=== PATIENT | male | born 1935 | race Caucasian/White ===

== ENCOUNTER → 2016-06-14 | Outpatient (CLI) | payer MEDICARE ==
[2016-06-14 15:27] LABS: Basophils % (A) 0 %; CH 29.4; CHCM 31.5; Eosinophils # (A) 0.3 k/uL (0-0.7); Eosinophils % (A) 3 %; HDW 2.43; HGB 12.8 gm/dL (13.0-17.5); Luc # (Auto) 0.23; Luc % (Auto) 2; Lymphocytes # (A) 0.7 k/uL (1.0-4.8); Lymphocytes % (A) 7 %; MCH 29.3 pg (25.0-35.0); MCHC 31.2 g/dL (31.0-37.0); MCV 93.7 fL (80.0-100.0); Mean Platelet Volume 6.7; Monocytes # (A) 0.7 k/uL (0-1.0); Monocytes % (A) 7 %; Neutrophils % (A) 80 %; RBC 4.38 m/uL (4.30-5.90); RDW 15.1 % (11.5-15.5); WBC (Perox) 10.31
[2016-06-14 15:44] LABS: ALT 27 U/L (21-72); AST 23 U/L (17-59); Alkaline Phosphatase 99 U/L (38-126); Anion Gap 14 mmol/L; Blood Urea Nitrogen 48 mg/dL (9-20); Carbon Dioxide 27 mmol/L (22-30); Chloride 99 mmol/L (98-107); Glucose 99 mg/dL (74-99); Non-African American GFR(MDRD) 53 (>60 ml/min/1.73 sqM); Potassium 4.7 mmol/L (3.5-5.1); Sodium 140 mmol/L (137-145); Total Bilirubin 0.6 mg/dL (0.2-1.3); Total Protein 7.8 g/dL (6.3-8.2)
[2016-06-14 15:51] LABS: Prealbumin 16 mg/dL (18-36)
[2016-06-14 17:09] LABS: Hemoglobin A1C 6.5 % (4.2-6.1)
== END | disposition home or self-care (01) ==
LOC: LABWHC1 14:59
PROVIDERS: ATTEND Surgery Vascular Surgery
DX: E11.9 Type 2 diabetes mellitus without complications (principal); E46 Unspecified protein-calorie malnutrition
CPT/HCPCS: 36415; 80053; 83036; 84134; 85025

== ENCOUNTER → 2016-09-14 | Outpatient (CLI) | payer MEDICARE ==
[2016-09-14 11:20] LABS: CH 30.1; CHCM 31.6; HCT 38.1 % (39.0-53.0); HDW 2.54; HGB 12.1 gm/dL (13.0-17.5); MCH 30.3 pg (25.0-35.0); MCHC 31.7 g/dL (31.0-37.0); MCV 95.6 fL (80.0-100.0); Mean Platelet Volume 6.7; RBC 3.98 m/uL (4.30-5.90); RDW 14.9 % (11.5-15.5); WBC 10.8 k/uL (3.8-10.6)
[2016-09-14 11:34] LABS: Calcium 8.8 mg/dL (8.4-10.2); Magnesium 2.2 mg/dL (1.6-2.3); Phosphorous 4.1 mg/dL (2.5-4.5); Potassium 5.3 mmol/L (3.5-5.1); Uric Acid 6.9 mg/dL (3.5-8.5)
[2016-09-14 11:42] LABS: % Iron Saturation 14.8 % (20-50)
[2016-09-14 11:44] LABS: Appearance,Urine Clear (Clear); Bilirubin,Urine Negative (Negative); Glucose,Urine (UA) Negative (Negative); Ketones,Urine Negative (Negative); Leukocyte Esterase,Urine Negative (Negative); Nitrite,Urine Negative (Negative); PH, Urine 6.5 (5.0-8.0); Protein,Urine Negative (Negative); Specific Gravity,Urine 1.009 (1.001-1.035); UA Billing (MACRO vs. MICRO) CHEM; Urobilinogen,Urine <2.0 mg/dL (<2.0)
== END | disposition home or self-care (01) ==
LOC: LABWHC1 10:42
PROVIDERS: ATTEND Nurse Practitioner Family
DX: N17.9 Acute kidney failure, unspecified (principal); D64.9 Anemia, unspecified; D50.9 Iron deficiency anemia, unspecified; N39.0 Urinary tract infection, site not specified; E21.3 Hyperparathyroidism, unspecified; E55.9 Vitamin D deficiency, unspecified; M10.9 Gout, unspecified
CPT/HCPCS: 36415; 80048; 81003; 82306; 82728; 83540; 83550; 83735; 83970; 84100; 84550; 85027

== ENCOUNTER 2017-02-09 11:57 | Inpatient (IN) | payer MEDICARE ==
--- NOTE | 2017-02-09 13:17 | ED ---
Extremity Problem HPI - General Source: patient, RN notes reviewed Mode of arrival: ambulatory Limitations: no limitations <Mychal Rivers - Last Filed: 02/09/17 14:51> <Pablito Dunn - Last Filed: 02/09/17 15:03> - General Chief complaint: Extremity Problem,Nontraumatic Stated complaint: infection both ankles Time Seen by Provider: 02/09/17 12:34 - History of Present Illness Initial comments: This an 82-year-old male presents emergency Department chief complaint of bilateral lower extremity wounds. Patient states his chronic wounds which he is normally seen at the wound center. Patient states he was seen Tuesday and today. Patient was sent over here for the wounds secondary to increase swelling and redness. Patient states that they're increased drainage also. He states he's had his wounds for several years. Patient states he is diabetic his last blood glucose check was 160. Patient has fever, chills. Patient states he is not on any current antibiotics. (Mychal Rivers) - Related Data Home Medications Medication Instructions Recorded Confirmed Spironolactone [Aldactone] 25 mg PO DAILY 04/24/14 02/09/17 Furosemide [Lasix] 20 mg PO BID@0800,1500 08/29/15 02/09/17 Warfarin Sodium [Coumadin] 4 mg PO MO 09/15/15 02/09/17 sitaGLIPtin [Januvia] 100 mg PO DAILY 09/15/15 02/09/17 Metoprolol Tartrate [Lopressor] 12.5 mg PO Q48H 02/09/17 02/09/17 Multivitamins, Thera [Multivitamin 1 tab PO DAILY 02/09/17 02/09/17 (formulary)] Polyethylene Glycol 3350 [Miralax] 17 gm PO DAILY PRN 02/09/17 02/09/17 Verapamil [Isoptin] 20 mg PO Q48H 02/09/17 02/09/17 Warfarin Sodium [Coumadin] 6 mg PO SUTUWETHFRSA 02/09/17 02/09/17 Allergies Allergy/AdvReac Type Severity Reaction Status Date / Time Vpzktng-Kkt-Rgo Reductase Allergy Rash/Hives Verified 02/09/17 13:13 Inhibitor Review of Systems ROS Other: All systems not noted in ROS Statement are negative. <Mychal Rivers - Last Filed: 02/09/17 14:51> ROS Other: All systems not noted in ROS Statement are negative. <Pablito Dunn - Last Filed: 02/09/17 15:03> ROS Statement: Those systems with pertinent positive or pertinent negative responses have been documented in the HPI. Past Medical History Past Medical History: Atrial Fibrillation, Coronary Artery Disease (CAD), Heart Failure, COPD, Hearing Disorder / Deafness, Hyperlipidemia, Hypertension, Skin Disorder Additional Past Medical History / Comment(s): Severe peripheral vascular disease , chronic venous stasis ulcer and lower extremities with infection secondary to Pseudomonas and MSSA and strep group B, chronic anasarca, chronic anemia, chronic atrial fibrillation, chronic hypotension, hyperlipidemia History of Any Multi-Drug Resistant Organisms: None Reported Past Surgical History: Heart Catheterization, Hernia Repair Additional Past Surgical History / Comment(s): COLONOSCOPY 3, right inguinal hernia repair, bilateral cataract removal and lens implants, NASAL FRACTURE Past Anesthesia/Blood Transfusion Reactions: No Reported Reaction Past Psychological History: No Psychological Hx Reported Smoking Status: Former smoker Past Alcohol Use History: None Reported Past Drug Use History: None Reported - Past Family History Mother Family Medical History: Diabetes Mellitus Father Family Medical History: Prostate Disorder Additional Family Medical History / Comment(s): bowel disorder <Mychal Rivers - Last Filed: 02/09/17 14:51> General Exam Limitations: no limitations General appearance: alert, in no apparent distress Head exam: Present: atraumatic, normocephalic, normal inspection Respiratory exam: Present: normal lung sounds bilaterally. Absent: respiratory distress, wheezes, rales, rhonchi, stridor Cardiovascular Exam: Present: regular rate, normal rhythm, normal heart sounds. Absent: systolic murmur, diastolic murmur, rubs, gallop, clicks Extremities exam: Present: other (Bilateral lower extremities there are open sores on the anterior surface of the distal tibia and ankle region with moderate surrounding erythema and induration, pedal pulses are equal bilaterally there is scattered few open sores noted on the proximal tib-fib region there is serosanguineous until he blood-tinged drainage noted there is a fall order to the wounds) Skin exam: Present: warm, dry <Mychal Rivers - Last Filed: 02/09/17 14:51> Vital Signs 02/09/17 02/09/17 12:08 13:42 Temperature 98.8 F Pulse Rate 101 H 85 Respiratory 16 18 Rate Blood Pressure 110/79 115/61 O2 Sat by Pulse 95 96 Oximetry Medical Decision Making - Lab Data Result diagrams: 02/09/17 13:40 <Mychal Rivers - Last Filed: 02/09/17 14:51> - Lab Data Result diagrams: 02/09/17 13:40 <Pablito Dunn - Last Filed: 02/09/17 15:03> - Medical Decision Making 80-year-old male presented for lower leg wounds. Patient does have a slight white count, and sores. Patient will be admitted for IV antibiotics. Patient does meet sepsis criteria at 14:53 Patient was started on Unasyn and vancomycin. (Mychal Rivers) Patient was reevaluated by myself, Dr. Dunn. Patient has bilateral lower leg cellulitis with erythema and clear discharge. Patient has purplish discoloration of majority of his toes Refill around 3 seconds. Diminished pedal pulses. Patient states he has a known history of vascular problems. Patient has had toe amputation. Patient states the color for his feet are actually good at this time. Case was discussed in detail with Dr. Pleitez, who will admit for Dr. Bartlett. Dr. Soni Who Has Previously Seen This Patient. Patient Does Meet Sepsis Criteria and Will Be Started on IV Antibiotics. (Pablito Dunn) - Lab Data Lab Results 02/09/17 02/09/17 Range/Units 13:40 13:40 WBC 15.2 H (3.8-10.6) k/uL RBC 3.78 L (4.30-5.90) m/uL Hgb 11.7 L (13.0-17.5) gm/dL Hct 37.3 L (39.0-53.0) % MCV 98.6 (80.0-100.0) fL MCH 31.0 (25.0-35.0) pg MCHC 31.4 (31.0-37.0) g/dL RDW 16.2 H (11.5-15.5) % Plt Count 293 (150-450) k/uL Neutrophils % 87 % Lymphocytes % 2 % Monocytes % 6 % Eosinophils % 3 % Basophils % 0 % Neutrophils # 13.3 H (1.3-7.7) k/uL Lymphocytes # 0.3 L (1.0-4.8) k/uL Monocytes # 1.0 (0-1.0) k/uL Eosinophils # 0.4 (0-0.7) k/uL Basophils # 0.0 (0-0.2) k/uL Anisocytosis Slight Macrocytosis Slight Plasma Lactic Acid Deandre 1.4 (0.7-2.0) mmol/L Disposition <Mychal Rivers - Last Filed: 02/09/17 14:51> <Pablito Dunn - Last Filed: 02/09/17 15:03> Clinical Impression: Venous stasis ulcer of left lower extremity, Venous stasis ulcer of right lower extremity, Sepsis Disposition: ADMITTED IP TO THIS HOSP Condition: Fair Referrals: Sana Bartlett MD [Primary Care Provider] - 1-2 days
[2017-02-09 13:58] LABS: Anisocytosis Slight; Basophils % (A) 0 %; CH 31.8; CHCM 32.5; Eosinophils # (A) 0.4 k/uL (0-0.7); Eosinophils % (A) 3 %; HCT 37.3 % (39.0-53.0); HDW 2.54; HGB 11.7 gm/dL (13.0-17.5); Luc % (Auto) 1; Lymphocytes # (A) 0.3 k/uL (1.0-4.8); Lymphocytes % (A) 2 %; MCHC 31.4 g/dL (31.0-37.0); MCV 98.6 fL (80.0-100.0); Macrocytosis Slight; Mean Platelet Volume 7.4; Monocytes % (A) 6 %; Neutrophils # (A) 13.3 k/uL (1.3-7.7); Neutrophils % (A) 87 %; RBC 3.78 m/uL (4.30-5.90); RDW 16.2 % (11.5-15.5); WBC 15.2 k/uL (3.8-10.6); WBC (Perox) 15.27
--- NOTE | 2017-02-09 14:11 | XR ---
EXAMINATION TYPE: XR tibia fibula bilateral DATE OF EXAM: 02/09/2017 COMPARISON: NONE HISTORY: Pain, infection TECHNIQUE: 2 views right tibia and fibula FINDINGS: No acute osseous abnormality is evident. Ankle mortise appears intact. Knee joint space kash ears preserved. No acute fractures identified. Artifact from the patient's bandages on the soft tissu es. IMPRESSION: 1. No acute osseous abnormality to suggest underlying osteomyelitis. 2. Soft tissues as visualized appear within Normal limits.
[2017-02-09] MEDS ORDERED: AMPICILLIN-SULBACTAM 3 GM in SODIUM CHLORIDE 0.9% 100 ML IVPB STA (14:50)
[2017-02-09] MEDS ORDERED: IV VANCOMYCIN PER PHARMACY 1 EACH MISC MISCELLANE PRN (14:51)
[2017-02-09] MEDS ORDERED: NALOXONE 0.4 MG/ML 1 ML VIAL IV PRN (14:53)
[2017-02-09] MEDS ORDERED: ACETAMINOPHEN TAB 325 MG TAB PO PRN (14:53)
[2017-02-09 15:02] LABS: ALT 22 U/L (21-72); AST 31 U/L (17-59); Alkaline Phosphatase 84 U/L (38-126); Anion Gap 10 mmol/L; Blood Urea Nitrogen 47 mg/dL (9-20); Calcium 8.9 mg/dL (8.4-10.2); Carbon Dioxide 25 mmol/L (22-30); Chloride 101 mmol/L (98-107); Glucose 100 mg/dL (74-99); Non-African American GFR(MDRD) 54 (>60 ml/min/1.73 sqM); Sodium 136 mmol/L (137-145); Total Protein 7.6 g/dL (6.3-8.2)
[2017-02-09 15:07] LABS: Potassium 5.8 mmol/L (3.5-5.1)
[2017-02-09] MEDS ORDERED: VANCOMYCIN 2,000 MG in SODIUM CHLORIDE 0.9% 500 ML IVPB ONE (16:00)
[2017-02-09 16:31] LABS: Partial Thromboplastin Time 30.2 sec (22.0-30.0); Prothrombin Time 19.7 sec (9.0-12.0)
[2017-02-09] MEDS: FUROSEMIDE 20 MG TAB PO SCH (16:31)
[2017-02-09] MEDS ORDERED: CALCIUM GLUCONATE 1,000 MG in SODIUM CHLORIDE 0.9% 100 ML IVPB ONE (17:18)
[2017-02-09] MEDS ORDERED: INSULIN REGULAR 100 UNIT/ML VIAL IV ONE (17:18)
[2017-02-09] MEDS ORDERED: DEXTROSE 50%-WATER 50 ML SYRINGE IVP STA (17:19)
[2017-02-09] MEDS ORDERED: SODIUM POLYSTYRENE SULFONATE 15 GM/60 ML BOTTLE PO STA (17:19)
[2017-02-09] MEDS ORDERED: IPRATROPIUM-ALBUTEROL 3 ML NEB INHALATION PRN (17:20)
[2017-02-09] MEDS: WARFARIN 3 MG TAB PO SCH (17:22)
[2017-02-09] MEDS ORDERED: POLYETHYLENE GLYCOL 3350 17 GM POWD.PACK PO PRN (17:23)
[2017-02-09] MEDS: PANTOPRAZOLE 40 MG/10 ML VIAL IVP SCH (18:01)
[2017-02-09] MEDS: IPRATROPIUM-ALBUTEROL 3 ML NEB INHALATION SCH (20:32)
[2017-02-09] MEDS: ceFAZolin 2 GM in SODIUM CHLORIDE 0.9% 100 ML IVPB SCH (23:15)
--- NOTE | 2017-02-10 06:26 | CONS ---
CONSULTATION DATE OF SERVICE: 02/09/2017 REASON FOR CONSULTATION: Bilateral lower extremity wound and cellulitis. HISTORY OF PRESENT ILLNESS: The patient is an 82-year-old male with a past medical history significant for bilateral lower extremity venous stasis ulcer with secondary cellulitis for which the patient is currently under care of Dr. Soni at the [facility]. The patient said that his home care nurse came to change his dressing and thought he was having significant swelling and redness with some drainage and advised him to go to the hospital. The patient denies any high-grade fever, however, has some occasional chills. He has been complaining of pain in the leg wound area, which is mostly burning in nature about 5 to 6 out of 10 with no radiation. The patient did have some clear drainage from it. The patient denies having any chest pain or shortness of breath or cough. No abdominal pain or any diarrhea. The patient was evaluated by the ER physician. The patient did have x-rays of the tibia and fibula, which shows soft tissue as visualized appears within normal limits and no bony changes. The patient did receive a dose of Unasyn and subsequently had been started on vancomycin. ID was consulted for further recommendation regarding antibiotic therapy. REVIEW OF SYSTEMS: CONSTITUTIONAL: Positive for weakness. Denies any high-grade fever. EYES: No complaint. ENT: No complaint. RESPIRATORY: Occasional cough. CARDIOVASCULAR: No complaint. GENITOURINARY: No complaint. GASTROINTESTINAL: No complaint. MUSCULOSKELETAL: No complaint. INTEGUMENTARY: No complaint. PSYCHOLOGICAL: No complaint. NEUROLOGIC: No complaint. PAST MEDICAL HISTORY: Significant for coronary artery disease, heart failure, COPD, hypertension, hyperlipidemia, atrial fibrillation, peripheral vascular disease and chronic venous stasis ulcers to the leg. PAST SURGICAL HISTORY: Colonoscopy, right inguinal hernia repair, bilateral cataract surgery, heart catheterization and hernia repair. SOCIAL HISTORY: Remote history of smoking. No drinking or any drug use. FAMILY HISTORY: Mother had history of diabetes. Father had history of prostate disorder. ALLERGIES: Allergies to STATINS. MEDICATIONS: Medications include the patient is currently on Tylenol, DuoNeb, Lasix, Tradjenta, Lopressor, Theragran, Narcan, Protonix, MiraLAX, Aldactone, verapamil, Coumadin and vancomycin. PHYSICAL EXAMINATION: On examination, blood pressure is 100/73 with a pulse of 100, temperature 97.7. He is 98% on room air. General description is an elderly male lying in bed in no distress. No tachypnea or accessory muscle for respiration use. HEENT examination shows slight pallor. No scleral icterus. Oral mucous membranes dry. NECK: Trachea central. No thyromegaly. LUNGS: Unlabored breathing. Clear to auscultation anteriorly. No wheeze or crackle. HEART: S1, S2. Regular rate and rhythm. ABDOMEN: Soft, no tenderness. No guarding or rigidity. EXTREMITIES: Bilateral legs which did have venous stasis ulcer with minimal cellulitis. No slough tissue. Some clear drainage. No foul smelling. NEUROLOGICAL: The patient is awake, alert, oriented x3. Mood and affect normal. LABS: Hemoglobin is 11.7, white count 15.2 with a BUN of 47, creatinine 1.28. Potassium was slightly elevated 5.8. Liver enzymes are normal. DIAGNOSTIC IMPRESSION AND PLAN: Patient with bilateral lower extremity venous stasis ulcer with secondary cellulitis in a patient who did have diffuse swelling and redness with underlying gram-positive skin augustina, especially in streptococcal disease, clinically doubt a methicillin- resistant Staphylococcus aureus infection. PLAN: 1. We will discontinue vancomycin. 2. We will start the patient on cefazolin 2 grams q.8 hours. 3. Local wound care with Aquacel Silver dressing followed by an Bill wrap. 4. We will follow up on his clinical condition and culture to further adjust medication if needed. Thank you for this consultation. Will follow this patient along with you. MMODL / IJN: [id number] /
[2017-02-10 07:32] LABS: Basophils # (A) 0.1 k/uL (0-0.2); Basophils % (A) 0 %; CH 29.6; CHCM 30.8; Eosinophils # (A) 0.5 k/uL (0-0.7); Eosinophils % (A) 4 %; HCT 35.8 % (39.0-53.0); HDW 2.59; Hypochromasia Slight; Luc # (Auto) 0.18; Luc % (Auto) 2; Lymphocytes # (A) 0.3 k/uL (1.0-4.8); Lymphocytes % (A) 3 %; MCH 29.5 pg (25.0-35.0); MCHC 30.6 g/dL (31.0-37.0); MCV 96.4 fL (80.0-100.0); Mean Platelet Volume 6.5; Monocytes # (A) 0.9 k/uL (0-1.0); Monocytes % (A) 7 %; Neutrophils % (A) 84 %; RBC 3.72 m/uL (4.30-5.90); RDW 14.5 % (11.5-15.5); WBC 11.8 k/uL (3.8-10.6); WBC (Perox) 12.06
[2017-02-10 07:40] LABS: INR 2.1 (<1.2); Prothrombin Time 20.6 sec (9.0-12.0)
[2017-02-10 07:46] LABS: Glucose,Whole Blood 120 mg/dL (75-99)
[2017-02-10 07:49] LABS: Anion Gap 9 mmol/L; Blood Urea Nitrogen 41 mg/dL (9-20); Calcium 8.4 mg/dL (8.4-10.2); Carbon Dioxide 24 mmol/L (22-30); Chloride 103 mmol/L (98-107); Glucose 116 mg/dL (74-99); Non-African American GFR(MDRD) 53 (>60 ml/min/1.73 sqM); Potassium 5.2 mmol/L (3.5-5.1); Sodium 136 mmol/L (137-145)
[2017-02-10] MEDS: IPRATROPIUM-ALBUTEROL 3 ML NEB INHALATION SCH ×4 (08:11→19:49)
[2017-02-10] MEDS: FUROSEMIDE 20 MG TAB PO SCH ×2 (08:18→16:00)
[2017-02-10] MEDS: LINAGLIPTIN 5 MG TABLET PO SCH (08:18)
[2017-02-10] MEDS: ceFAZolin 2 GM in SODIUM CHLORIDE 0.9% 100 ML IVPB SCH ×2 (08:18→16:02)
[2017-02-10] MEDS: PANTOPRAZOLE 40 MG/10 ML VIAL IVP SCH (08:18)
[2017-02-10] MEDS ORDERED: SPIRONOLACTONE 25 MG TAB PO SCH (09:00)
[2017-02-10] MEDS ORDERED: VERAPAMIL 40 MG TAB PO SCH (09:00)
[2017-02-10 12:19] LABS: Glucose,Whole Blood 162 mg/dL (75-99)
[2017-02-10] MEDS: MULTIVITAMINS, THERA 1 EACH TAB PO SCH (12:57)
--- NOTE | 2017-02-10 15:39 | P.HPIM ---
History of Present Illness H&P Date: 02/10/17 Chief Complaint: leg infection patient is a 82-year-old malethe past medical history of hypertension, diabetes type 2, atrial fibrillation on anticoagulation and chronic venous stasis and ulcers and peripheral vascular disease presents emergency Department chief complaint of bilateral lower extremity wounds. Patient states his chronic wounds which he is normally seen at the wound center. Patient states he was seen Tuesday and today. Patient was sent over here for the wounds secondary to increase swelling and redness. Patient denied any fever, chills. denied any injury or recent illnesses. No complaints of chest pain or short of breath. patient follows with Dr. Soni in the wound care clinic. Review of Systems Constitutional: Patient denies any fever or chills . No generalized weakness or weight loss. Abdomen: Patient denied nausea vomiting and diarrhea and abdominal pain. Cardiovascular: Patient denies any chest pain or short of breath no palpitations. Respiratory: patient denied any cough is from production. No shortness of breath Neurologic: Patient denied any numbness or tingling headache. Musculoskeletal: Patient denies any complaints of joint swelling or deformity. Skin: patient does have bilateral lower extremity venous ulcers and also complaints of pain and redness. Psychiatric: Negative Endocrine: No heat or cold intolerance. No recent weight gain. Genitourinary: No dysuria or hematuria. All other 14 point ROS negative except the above Past Medical History Past Medical History: Atrial Fibrillation, Coronary Artery Disease (CAD), Heart Failure, COPD, Hearing Disorder / Deafness, Hyperlipidemia, Hypertension, Skin Disorder Additional Past Medical History / Comment(s): Severe peripheral vascular disease , chronic venous stasis ulcer and lower extremities with infection secondary to Pseudomonas and MSSA and strep group B, chronic anasarca, chronic anemia, chronic atrial fibrillation, chronic hypotension, hyperlipidemia History of Any Multi-Drug Resistant Organisms: None Reported Past Surgical History: Heart Catheterization, Hernia Repair Additional Past Surgical History / Comment(s): COLONOSCOPY 3, right inguinal hernia repair, bilateral cataract removal and lens implants, NASAL FRACTURE Past Anesthesia/Blood Transfusion Reactions: No Reported Reaction Past Psychological History: No Psychological Hx Reported Additional Psychological History / Comment(s): He is and has one stepdaughter 4 grandchildren and multiple great-grandchildrenHe is retired from [employer] or he worked in the shipping department, 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 Smoking Status: Former smoker Past Alcohol Use History: None Reported Additional Past Alcohol Use History / Comment(s): he was a smoker and quit 40 years ago. He denies any medical marijuana, marijuana, street drug or alcohol use. He is currently living with great grandson and has 2 cats in the home. He denies any recent travel. Past Drug Use History: None Reported - Past Family History Mother Family Medical History: Diabetes Mellitus Father Family Medical History: Prostate Disorder Additional Family Medical History / Comment(s): bowel disorder Medications and Allergies Home Medications Medication Instructions Recorded Confirmed Type Spironolactone [Aldactone] 25 mg PO DAILY 04/24/14 02/09/17 History Furosemide [Lasix] 20 mg PO BID@0800,1500 08/29/15 02/09/17 History Warfarin Sodium [Coumadin] 4 mg PO MO 09/15/15 02/09/17 History sitaGLIPtin [Januvia] 100 mg PO DAILY 09/15/15 02/09/17 History Metoprolol Tartrate [Lopressor] 12.5 mg PO Q48H 02/09/17 02/09/17 History Multivitamins, Thera [Multivitamin 1 tab PO DAILY 02/09/17 02/09/17 History (formulary)] Polyethylene Glycol 3350 [Miralax] 17 gm PO DAILY PRN 02/09/17 02/09/17 History Verapamil [Isoptin] 20 mg PO Q48H 02/09/17 02/09/17 History Warfarin Sodium [Coumadin] 6 mg PO SUTUWETHFRSA 02/09/17 02/09/17 History Allergies Allergy/AdvReac Type Severity Reaction Status Date / Time Bzeispq-Qal-Kvu Reductase Allergy Rash/Hives Verified 02/09/17 13:13 Inhibitor Physical Exam Vitals: Vital Signs Temp Pulse Pulse Resp BP BP Pulse Ox 02/10/17 11:09 92 02/10/17 10:58 88 02/10/17 08:00 110 H 02/10/17 07:00 97.3 F L 110 H 20 107/74 97 02/09/17 23:00 97.5 F L 106 H 20 112/79 95 02/09/17 20:45 92 02/09/17 20:32 90 02/09/17 16:48 16 02/09/17 16:41 97.7 F 100 16 100/73 98 02/09/17 15:36 98.1 F 66 16 142/63 98 02/09/17 13:42 85 18 115/61 96 Intake and Output 02/09/17 02/10/17 02/10/17 22:59 06:59 14:59 Intake Total 592 Balance 592 Intake: Intake, IV Titration 592 Amount Ampicillin-Sulbactam 3 gm 100 In Sodium Chloride 0.9% 100 ml @ 100 mls/hr IVPB ONCE STA Rx#:[id number] Calcium Gluconate 1,000 100 mg In Sodium Chloride 0.9 % 100 ml @ 100 mls/hr IVPB ONCE ONE Rx#: [id number] Vancomycin 1,500 mg In 125 Sodium Chloride 0.9% 250 ml @ 125 mls/hr IVPB Q24H [facility] Rx#:[id number] Vancomycin 2,000 mg In 167 Sodium Chloride 0.9% 500 ml @ 167 mls/hr IVPB ONCE ONE Rx#:[id number] ceFAZolin 2 gm In Sodium 100 Chloride 0.9% 100 ml @ 100 mls/hr IVPB Q8HR [facility] Rx#:[id number] Other: Voiding Method Toilet # Voids 2 3 1 # Bowel Movements 1 PHYSICAL EXAMINATION: Patient is lying in the bed comfortably, no acute distress, awake alert and oriented.. HEENT: Normocephalic. Neck is supple. Pupils reactive. Nostrils clear. Oral cavity is moist. Ears reveal no drainage. Neck reveals no JVD, carotid bruits, or thyromegaly. CHEST EXAMINATION: Trachea is central. Symmetrical expansion. Lung baxter clear to auscultation and percussion. CARDIAC: Normal S1, S2 with no gallops. No murmurs ABDOMEN: Soft. Bowel sounds normal. No organomegaly. No abdominal bruits. Extremities: bilateral lower extremity venous ulcers and surrounding cellulitis. Mild tenderness and warmth Neurologically awake, alert, oriented x3 with well-coordinated movements. No focal deficits noted Skin: No rash or skin lesions. Psychiatric: Operative. Nonsuicidal Musculoskeletal: No joint swelling or deformity. Normal range of motion. Results CBC & Chem 7: 02/10/17 07:07 02/10/17 07:07 Labs: Abnormal Lab Results - Last 24 Hours (Table) 02/09/17 02/09/17 02/09/17 Range/Units 13:40 14:32 16:05 WBC 15.2 H (3.8-10.6) k/uL RBC 3.78 L (4.30-5.90) m/uL Hgb 11.7 L (13.0-17.5) gm/dL Hct 37.3 L (39.0-53.0) % MCHC (31.0-37.0) g/dL RDW 16.2 H (11.5-15.5) % Neutrophils # 13.3 H (1.3-7.7) k/uL Lymphocytes # 0.3 L (1.0-4.8) k/uL PT 19.7 H (9.0-12.0) sec INR 2.0 H (<1.2) APTT 30.2 H (22.0-30.0) sec Sodium 136 L (137-145) mmol/L Potassium 5.8 H (3.5-5.1) mmol/L BUN 47 H (9-20) mg/dL Creatinine 1.28 H (0.66-1.25) mg/dL Glucose 100 H (74-99) mg/dL POC Glucose (mg/dL) (75-99) mg/dL 02/10/17 02/10/17 02/10/17 Range/Units 07:07 07:07 07:07 WBC 11.8 H (3.8-10.6) k/uL RBC 3.72 L (4.30-5.90) m/uL Hgb 11.0 L (13.0-17.5) gm/dL Hct 35.8 L (39.0-53.0) % MCHC 30.6 L (31.0-37.0) g/dL RDW (11.5-15.5) % Neutrophils # 10.0 H (1.3-7.7) k/uL Lymphocytes # 0.3 L (1.0-4.8) k/uL PT 20.6 H (9.0-12.0) sec INR 2.1 H (<1.2) APTT (22.0-30.0) sec Sodium 136 L (137-145) mmol/L Potassium 5.2 H (3.5-5.1) mmol/L BUN 41 H (9-20) mg/dL Creatinine 1.30 H (0.66-1.25) mg/dL Glucose 116 H (74-99) mg/dL POC Glucose (mg/dL) (75-99) mg/dL 02/10/17 02/10/17 Range/Units 07:27 12:16 WBC (3.8-10.6) k/uL RBC (4.30-5.90) m/uL Hgb (13.0-17.5) gm/dL Hct (39.0-53.0) % MCHC (31.0-37.0) g/dL RDW (11.5-15.5) % Neutrophils # (1.3-7.7) k/uL Lymphocytes # (1.0-4.8) k/uL PT (9.0-12.0) sec INR (<1.2) APTT (22.0-30.0) sec Sodium (137-145) mmol/L Potassium (3.5-5.1) mmol/L BUN (9-20) mg/dL Creatinine (0.66-1.25) mg/dL Glucose (74-99) mg/dL POC Glucose (mg/dL) 120 H 162 H (75-99) mg/dL Thrombosis Risk Factor Assmnt - Choose All That Apply Each Factor Represents 1 point: Swollen legs (current) Each Risk Factor Represents 3 Points: Age 75 years or older Thrombosis Risk Factor Assessment Total Risk Factor Score: 4 Thrombosis Risk Factor Assessment Level: Moderate Risk Assessment and Plan Assessment: #1 sepsis secondary to bilateral lower action T venostasis ulcers with surrounding cellulitis. Patient does have mucositis and tachycardia on admission 2 peripheral vascular disease #3 mild hyperkalemia. We will hold spironolactone. #4 acute kidney injury likely prerenal #5 diabetes type #6 hypertension #7 paroxysmal atrial fibrillation on anticoagulation with Coumadin #8hearing disorder plan: Patient will becontinued on cefazolin. Patient was initially given vancomycin in the ER at ID is following. Continue the wound care. And follow-up progression level. Will hold spironolactone and continue the current management. Coumadin monitoring. Further recommendations based on the clinical course Time with Patient: Greater than 30
[2017-02-10] MEDS ORDERED: VANCOMYCIN 1,500 MG in SODIUM CHLORIDE 0.9% 250 ML IVPB SCH (16:00)
[2017-02-10 17:47] LABS: Glucose,Whole Blood 141 mg/dL (75-99)
[2017-02-10] MEDS: WARFARIN 3 MG TAB PO SCH (18:08)
[2017-02-10 20:59] LABS: Glucose,Whole Blood 147 mg/dL (75-99)
[2017-02-10] MEDS: METOPROLOL TARTRATE 12.5 MG TAB PO SCH (21:09)
--- NOTE | 2017-02-10 22:11 | PN ---
PROGRESS NOTE REASON FOR FOLLOWUP: Bilateral lower extremity venostasis ulcers and cellulitis. INTERVAL HISTORY: The patient is afebrile, has been breathing comfortably. Denies any chest pain or shortness of breath or cough. No abdominal pain. The burning pain to the leg area has improved. PHYSICAL EXAMINATION: Blood pressure 107/77 with a pulse of 88, temperature of 98.4. He is 98% on room air. General description is an elderly male up in the chair in no distress. RESPIRATORY SYSTEM: Unlabored breathing. Clear to auscultation anteriorly. HEART: S1, S2. Regular rate and rhythm. ABDOMEN: Soft. No tenderness. Bilateral leg swelling and redness slightly improved. No drainage on the dressings. LABS: Hemoglobin is 11 with a white count of 11.8, BUN of 41, creatinine 1.30. DIAGNOSTIC IMPRESSION AND PLAN: Patient with bilateral lower extremity venostasis ulcers with secondary cellulitis. The patient at this time will continue on cefazolin for another 24-48 hours along with Aquacel Silver and the Bill wrap. Will re-evaluate the patient tomorrow. Continue supportive care. MMODL / IJN: [id number] /
[2017-02-11] MEDS: ceFAZolin 2 GM in SODIUM CHLORIDE 0.9% 100 ML IVPB SCH ×4 (00:04→23:50)
[2017-02-11] MEDS: IPRATROPIUM-ALBUTEROL 3 ML NEB INHALATION SCH ×4 (07:06→20:50)
[2017-02-11 07:23] LABS: Glucose,Whole Blood 108 mg/dL (75-99)
[2017-02-11 08:41] LABS: INR 2.4 (<1.2); Prothrombin Time 23.5 sec (9.0-12.0)
[2017-02-11 08:51] LABS: Basophils % (A) 0 %; CH 29.9; CHCM 31.1; Eosinophils # (A) 0.5 k/uL (0-0.7); Eosinophils % (A) 5 %; HCT 37.3 % (39.0-53.0); HDW 2.72; HGB 11.4 gm/dL (13.0-17.5); Hypochromasia Slight; Luc # (Auto) 0.14; Luc % (Auto) 1; Lymphocytes # (A) 0.4 k/uL (1.0-4.8); Lymphocytes % (A) 4 %; MCH 29.5 pg (25.0-35.0); MCHC 30.5 g/dL (31.0-37.0); MCV 96.8 fL (80.0-100.0); Mean Platelet Volume 6.5; Monocytes # (A) 0.6 k/uL (0-1.0); Monocytes % (A) 6 %; Neutrophils # (A) 8.7 k/uL (1.3-7.7); Neutrophils % (A) 84 %; RBC 3.85 m/uL (4.30-5.90); RDW 14.6 % (11.5-15.5); WBC 10.3 k/uL (3.8-10.6); WBC (Perox) 10.37
[2017-02-11] MEDS: METOPROLOL TARTRATE 12.5 MG TAB PO SCH (08:59)
[2017-02-11] MEDS: PANTOPRAZOLE 40 MG TABLET PO SCH (08:59)
[2017-02-11] MEDS: FUROSEMIDE 20 MG TAB PO SCH ×2 (08:59→15:19)
[2017-02-11] MEDS ORDERED: METOPROLOL TARTRATE 12.5 MG TAB PO SCH (09:00)
[2017-02-11] MEDS: LINAGLIPTIN 5 MG TABLET PO SCH (09:00)
[2017-02-11 09:07] LABS: Anion Gap 10 mmol/L; Blood Urea Nitrogen 34 mg/dL (9-20); Calcium 8.5 mg/dL (8.4-10.2); Carbon Dioxide 26 mmol/L (22-30); Chloride 101 mmol/L (98-107); Glucose 113 mg/dL (74-99); Non-African American GFR(MDRD) >60 (>60 ml/min/1.73 sqM); Potassium 4.4 mmol/L (3.5-5.1); Sodium 137 mmol/L (137-145)
[2017-02-11] MEDS ORDERED: METOPROLOL TARTRATE 12.5 MG TAB PO ONE (10:45)
[2017-02-11 10:57] LABS: Magnesium 1.9 mg/dL (1.6-2.3)
[2017-02-11] MEDS: MULTIVITAMINS, THERA 1 EACH TAB PO SCH (11:04)
[2017-02-11 12:11] LABS: Glucose,Whole Blood 113 mg/dL (75-99)
--- NOTE | 2017-02-11 13:26 | ECHOF ---
Referral Reason:known cardiomyopathy, afib MEASUREMENTS -------- HEIGHT: 182.9 cm WEIGHT: 98.4 kg BP: 104/69 IVSd: 0.7 cm (0.6 - 1.1) LVIDd: 4.1 cm (3.9 - 5.3) LVPWd: 1.0 cm (0.6 - 1.1) IVSs: 1.0 cm LVIDs: 3.5 cm LVPWs: 1.1 cm LAESV Index (A-L): 48.04 ml/m MV EXCURSION: 9.219 mm (> 18.000) MV EF SLOPE: 77 mm/s (70 - 150) EPSS: 1.7 cm MV E Jewel: 1.16 m/s MV DecT: 66 ms MV A Jewel: 0.54 m/s MV E/A Ratio: 2.16 FINDINGS -------- Atrial fibrillation. This was a technically difficult study with suboptimal views. The left ventricular size is normal. Left ventricular wall thickness is normal. Overall left ventricular systolic function is mild-moderately impaired with, an EF between 40 - 45 %. The right ventricle is normal in size and function. LA is severely dilated >40 ml/m2 The right atrium is normal in size. 1.5mg of Definity was utilized for enhancement of images The aortic valve was not well visualized. The mitral valve was not well visualized. Mild mitral regurgitation is present. Kefv-zl-czsorhyj tricuspid regurgitation present. The right ventricular systolic pressure, as measured by Doppler, is {RVSP}. The pulmonic valve was not well visualized. The aortic root size is normal. Normal inferior vena cava with normal inspiratory collapse consistent with estimated right atrial pressure of 5 mmHg. The pericardium is normal. CONCLUSIONS -------- 1. Atrial fibrillation. 2. The aortic valve was not well visualized. 3. The mitral valve was not well visualized. 4. Mild mitral regurgitation is present. 5. Fohc-ei-djynwaba tricuspid regurgitation present. 6. The right ventricular systolic pressure, as measured by Doppler, is {RVSP}. 7. The pulmonic valve was not well visualized. 8. The aortic root size is normal. 9. Normal inferior vena cava with normal inspiratory collapse consistent with estimated right atrial pressure of 5 mmHg. 10. The pericardium is normal. 11. This was a technically difficult study with suboptimal views. 12. The left ventricular size is normal. 13. Left ventricular wall thickness is normal. 14. Overall left ventricular systolic function is mild-moderately impaired with, an EF between 40 - 45 %. 15. The right ventricle is normal in size and function. 16. LA is severely dilated >40 ml/m2 17. The right atrium is normal in size. 18. 1.5mg of Definity was utilized for enhancement of images PARTS DEPARTMENT SUPERVISOR: Angelina Yun RDCS
--- NOTE | 2017-02-11 15:01 | P.CRDCN ---
History of Present Illness Consult date: 02/11/17 History of present illness: This is a very pleasant 82-year-old male with past medical history significant for chronic persistent atrial fibrillation on prison anitcoagulation, cardiomyopathy, hypertension, diabetes mellitus, COPD, PVD with chronic venous stasis ulcers and decreased systolic dysfunction with EF 40%. He follows regularly with Dr. Jimenez as an outpatient. We have been asked to see the patient in consultation for atrial fibrillation with rapid ventricular response. He is currently being treated for b/l lower extremity venous stasis ulcers. EKG reveals atrial fibrillation heart rate 120's. On telemetry tracings his heart rate goes between 110-129. However his verapamil was never started upon admission. Upon exam today he is seen sitting up in bed in mild respiratory distress. He is unable to complete a sentence without stopping for air. He denies any feelings of chest pain, palpitations, dizziness, diaphoresis. He even denies shortness of breath and states he feels his breathing is baseline. He is getting albuterol nebulized ATC and is also being treated for sepsis secondary to cellulitis. Hgb 11.4, INR 2.4, potassium 4.4, BUN 34, Cr 1.07, magnesium 1.9, TSH 7.8 with free T4 1.42. Blood pressure 104/69. Echo reveals mild-moderate LV systolic dysfunction with EF 40-45%, mild- moderate TR and severely dilated LA. Review of Systems CONSTITUTIONAL: Denies fever. Denies chills. EYES: Denies blurred vision. Denies vision changes. Denies eye pain. EARS, NOSE, MOUTH & THROAT: Denies headache. Denies sore throat. Denies ear pain. CARDIOVASCULAR: Denies chest pain. Denies shortness of breath. Denies orthopnea. Denies PND. Denies palpitations. RESPIRATORY: Denies cough. GASTROINTESTINAL: Denies abdominal pain. Denies diarrhea. Denies constipation. Denies nausea. Denies vomitng. MUSCULOSKELETAL: Denies myalgias. INTEGUMENTARY: Complains of ongoing lower extremity wounds. NEUROLOGIC: Denies numbness. Denies tingling. Denies weakness. PSYCHIATRIC: Denies anxiety. Denies depression. ENDOCRINE: Denies fatigue. Denies weight change. Denies polydipsia. Denies polyurina. GENITOURINARY: Denies burning, hematuria or urgency with micturation. HEMATOLOGIC: Denies history of anemia. Denies bleeding. Past Medical History Past Medical History: Atrial Fibrillation, Coronary Artery Disease (CAD), Heart Failure, COPD, Hearing Disorder / Deafness, Hyperlipidemia, Hypertension, Skin Disorder Additional Past Medical History / Comment(s): Severe peripheral vascular disease , chronic venous stasis ulcer and lower extremities with infection secondary to Pseudomonas and MSSA and strep group B, chronic anasarca, chronic anemia, chronic atrial fibrillation, chronic hypotension, hyperlipidemia History of Any Multi-Drug Resistant Organisms: None Reported Past Surgical History: Heart Catheterization, Hernia Repair Additional Past Surgical History / Comment(s): COLONOSCOPY 3, right inguinal hernia repair, bilateral cataract removal and lens implants, NASAL FRACTURE Past Anesthesia/Blood Transfusion Reactions: No Reported Reaction Past Psychological History: No Psychological Hx Reported Additional Psychological History / Comment(s): He is and has one stepdaughter 4 grandchildren and multiple great-grandchildrenHe is retired from [employer] or he worked in the [employer] department, 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 Smoking Status: Former smoker Past Alcohol Use History: None Reported Additional Past Alcohol Use History / Comment(s): he was a smoker and quit 40 years ago. He denies any medical marijuana, marijuana, street drug or alcohol use. He is currently living with great grandson and has 2 cats in the home. He denies any recent travel. Past Drug Use History: None Reported - Past Family History Mother Family Medical History: Diabetes Mellitus Father Family Medical History: Prostate Disorder Additional Family Medical History / Comment(s): bowel disorder Medications and Allergies Home Medications Medication Instructions Recorded Confirmed Type Spironolactone [Aldactone] 25 mg PO DAILY 04/24/14 02/09/17 History Furosemide [Lasix] 20 mg PO BID@0800,1500 08/29/15 02/09/17 History Warfarin Sodium [Coumadin] 4 mg PO MO 09/15/15 02/09/17 History sitaGLIPtin [Januvia] 100 mg PO DAILY 09/15/15 02/09/17 History Metoprolol Tartrate [Lopressor] 12.5 mg PO Q48H 02/09/17 02/09/17 History Multivitamins, Thera [Multivitamin 1 tab PO DAILY 02/09/17 02/09/17 History (formulary)] Polyethylene Glycol 3350 [Miralax] 17 gm PO DAILY PRN 02/09/17 02/09/17 History Verapamil [Isoptin] 20 mg PO Q48H 02/09/17 02/09/17 History Warfarin Sodium [Coumadin] 6 mg PO SUTUWETHFRSA 02/09/17 02/09/17 History Allergies Allergy/AdvReac Type Severity Reaction Status Date / Time Ltwzulg-Igy-Gto Reductase Allergy Rash/Hives Verified 02/09/17 13:13 Inhibitor Physical Exam Vitals: Vital Signs Temp Pulse Pulse Resp BP Pulse Ox 02/11/17 11:52 114 H 02/11/17 11:43 110 H 02/11/17 07:17 129 H 02/11/17 07:06 123 H 02/11/17 07:00 97.8 F 120 H 21 104/69 91 L 02/10/17 23:00 97.9 F 112 H 20 104/77 93 L 02/10/17 20:06 90 02/10/17 19:50 88 02/10/17 16:08 88 02/10/17 16:02 88 02/10/17 15:00 98.4 F 120 H 21 107/72 98 Intake and Output 02/10/17 02/11/17 02/11/17 22:59 06:59 14:59 Intake Total 425 475 Balance 425 475 Intake: Oral 425 475 Other: Voiding Method Toilet # Voids 2 2 1 GENERAL: This is a 82-year-old male in no apparent distress at the time of my examination. Obese. HEENT: Head is atraumatic, normocephalic. Pupils are equal, round. Sclerae anicteric. Conjunctivae are clear. Mucous membranes of the mouth are moist. Neck is supple. There is no jugular venous distention. No carotid bruit is heard. LUNGS: Diffuse expiratory wheezing, no rales or rhonchi. No chest wall tenderness is noted on palpation or with deep breathing. HEART: Irregular rate and rhythm with systolic ejection murmur at the base, no rubs or gallops. S1 and S2 heard. ABDOMEN: Soft, nontender. Bowel sounds are heard. No organomegaly noted. EXTREMITIES: Multiple venous stasis ulcers bilateral with significant discoloration below the knee. NEUROLOGIC: Patient is awake, alert and oriented x3. Results 02/11/17 07:54 02/11/17 07:54 Coagulation 02/11/17 Range/Units 07:54 PT 23.5 H (9.0-12.0) sec CBC 02/11/17 Range/Units 07:54 WBC 10.3 (3.8-10.6) k/uL RBC 3.85 L (4.30-5.90) m/uL Hgb 11.4 L (13.0-17.5) gm/dL Hct 37.3 L (39.0-53.0) % Plt Count 336 (150-450) k/uL Comprehensive Metabolic Panel 02/11/17 Range/Units 07:54 Sodium 137 (137-145) mmol/L Potassium 4.4 (3.5-5.1) mmol/L Chloride 101 (98-107) mmol/L Carbon Dioxide 26 (22-30) mmol/L BUN 34 H (9-20) mg/dL Creatinine 1.07 (0.66-1.25) mg/dL Glucose 113 H (74-99) mg/dL Calcium 8.5 (8.4-10.2) mg/dL Current Medications Generic Name Dose Route Start Last Admin Trade Name Freq PRN Reason Stop Dose Admin Acetaminophen 650 mg 02/09/17 14:53 Tylenol Tab PO Q6HR PRN Mild Pain or Fever > 100.5 Albuterol/Ipratropium 3 ml 02/09/17 20:00 02/11/17 11:43 Duoneb 0.5 Mg-3 Mg/3 Ml Soln INHALATION 3 ml RT-QID FAM Administration Albuterol/Ipratropium 3 ml 02/09/17 17:20 Duoneb 0.5 Mg-3 Mg/3 Ml Soln INHALATION RT-Q2H PRN Shortness Of Breath Or Wheezing Furosemide 20 mg 02/09/17 15:00 02/11/17 08:59 Lasix PO 20 mg BID@0800,1500 FAM Administration Cefazolin Sodium 2 gm/ Sodium 100 mls @ 100 mls/hr 02/10/17 00:00 02/11/17 08 :59 Chloride IVPB 100 mls/hr Q8HR FAM Administration Linagliptin 5 mg 02/10/17 09:00 02/11/17 09:00 Tradjenta PO 5 mg DAILY FAM Administration Metoprolol Tartrate 25 mg 02/11/17 21:00 Lopressor PO BID [facility] Multivitamins 1 each 02/10/17 12:00 02/11/17 11:04 Theragran PO 1 each DAILY@1200 FAM Administration Naloxone HCl 0.2 mg 02/09/17 14:53 Narcan IV Q2M PRN Opioid Reversal Pantoprazole Sodium 40 mg 02/11/17 07:30 02/11/17 08:59 Protonix PO 40 mg [id number] FAM Administration Polyethylene Glycol 17 gm 02/09/17 17:23 Miralax PO DAILY PRN Constipation Warfarin Sodium 4 mg 02/14/17 18:00 Coumadin PO MO FAM Warfarin Sodium 6 mg 02/09/17 18:00 02/10/17 18:08 Coumadin PO 6 mg SUTUWETHFRSA FAM Administration Intake and Output 02/10/17 02/11/17 02/11/17 22:59 06:59 14:59 Intake Total 425 475 Balance 425 475 Intake: Oral 425 475 Other: Voiding Method Toilet # Voids 2 2 1 02/11/17 07:54 02/11/17 07:54 Assessment and Plan Assessment: ASSESSMENT 1. Chronic persistent atrial fibrillation on long-term anticoagulation with rapid ventricular response 2. Chronic systolic dysfunction ejection fraction 40-45% 3. Nonischemic cardiomyopathy 4. Essential hypertension 5. Dyslipidemia 6. Diabetes mellitus 7. COPD 8. Severe peripheral vascular disease 9. Venous stasis ulcers bilateral lower extremities with associated cellulitis PLAN Place the patient back on his home dose of verapamil; Increase metoprolol 25 mg by mouth twice a day as blood pressure tolerates; Placed the patient back on his home dose of spironolactone; Continue Coumadin for anticoagulation; Continue cardiac telemetry monitoring; Rate control has been an ongoing concern with frequent medication adjustments necessary. Thank you kindly for this consultation, further recommendations will be based upon clinical course. Nurse Practitioner note has been reviewed, I agree with a documented findings and plan of care. Patient was seen and examined.
[2017-02-11] MEDS: SPIRONOLACTONE 25 MG TAB PO SCH (15:19)
--- NOTE | 2017-02-11 16:33 | P.PN ---
Subjective Progress Note Date: 02/11/17 Principal diagnosis: Progress note being dictated for Dr. Pleitez Interval history:patient is a 82-year-old malethe past medical history of hypertension, diabetes type 2, atrial fibrillation on anticoagulation and chronic venous stasis and ulcers and peripheral vascular disease presents emergency Department chief complaint of bilateral lower extremity wounds. Patient states his chronic wounds which he is normally seen at the wound center. Patient states he was seen Tuesday and today. Patient was sent over here for the wounds secondary to increase swelling and redness. Patient denied any fever, chills. denied any injury or recent illnesses. No complaints of chest pain or short of breath. patient follows with Dr. Soni in the wound care clinic. 02/11/2017. 02/11/2017 ambulating around in room, tolerating increase in exertion well. Afebrile. Maintained on IV antibiotics as per infectious disease. Blood cultures remain negative at 48 hours. Telemetry reporting atrial fibrillation, uncontrolled with heart rates mainly hanging in the low 100s up to 120s. Beta donovan increased, verapamil resumed. Denies chest pain, palpitations or increasing shortness of breath. TSH 7.880 and free T4 1.42. Objective - Vital Signs Vital signs: Vital Signs Temp 97.5 F L 02/11/17 15:00 Pulse 112 H 02/11/17 15:00 Resp 20 02/11/17 15:00 BP 110/68 02/11/17 15:00 Pulse Ox 94 L 02/11/17 15:00 Intake & Output 02/10/17 02/11/17 02/11/17 18:59 06:59 18:59 Intake Total 900 Balance 900 Intake: Oral 900 Other: Voiding Method Toilet # Voids 3 2 2 # Bowel Movements 1 1 - Exam Patient is lying in the bed comfortably, no acute distress, awake alert and oriented.. HEENT: Normocephalic. Neck is supple. Pupils reactive. Nostrils clear. Oral cavity is moist. Ears reveal no drainage. Neck reveals no JVD, carotid bruits, or thyromegaly. CHEST EXAMINATION: Trachea is central. Symmetrical expansion. Mild expiratory wheezing, no rhonchi, no crackles CARDIAC: Normal S1, S2 with no gallops. Positive systolic murmurs ABDOMEN: Soft. Bowel sounds normal. No organomegaly. No abdominal bruits. Extremities: bilateral lower extremity venous ulcers and surrounding cellulitis. Mild tenderness and warmth. Bill wraps clean dry and intact Neurologically awake, alert, oriented x3 with well-coordinated movements. No focal deficits noted Skin: No rash or skin lesions. Psychiatric: Operative. Nonsuicidal Musculoskeletal: No joint swelling or deformity. Normal range of motion. - Labs CBC & Chem 7: 02/11/17 07:54 02/11/17 07:54 Labs: Abnormal Lab Results - Last 24 Hours (Table) 02/10/17 02/10/17 02/11/17 Range/Units 17:23 20:50 07:19 RBC (4.30-5.90) m/uL Hgb (13.0-17.5) gm/dL Hct (39.0-53.0) % MCHC (31.0-37.0) g/dL Neutrophils # (1.3-7.7) k/uL Lymphocytes # (1.0-4.8) k/uL PT (9.0-12.0) sec INR (<1.2) BUN (9-20) mg/dL Glucose (74-99) mg/dL POC Glucose (mg/dL) 141 H 147 H 108 H (75-99) mg/dL TSH (0.465-4.680) mIU/L 02/11/17 02/11/17 02/11/17 Range/Units 07:54 07:54 07:54 RBC 3.85 L (4.30-5.90) m/uL Hgb 11.4 L (13.0-17.5) gm/dL Hct 37.3 L (39.0-53.0) % MCHC 30.5 L (31.0-37.0) g/dL Neutrophils # 8.7 H (1.3-7.7) k/uL Lymphocytes # 0.4 L (1.0-4.8) k/uL PT 23.5 H (9.0-12.0) sec INR 2.4 H (<1.2) BUN 34 H (9-20) mg/dL Glucose 113 H (74-99) mg/dL POC Glucose (mg/dL) (75-99) mg/dL TSH (0.465-4.680) mIU/L 02/11/17 02/11/17 Range/Units 07:54 12:08 RBC (4.30-5.90) m/uL Hgb (13.0-17.5) gm/dL Hct (39.0-53.0) % MCHC (31.0-37.0) g/dL Neutrophils # (1.3-7.7) k/uL Lymphocytes # (1.0-4.8) k/uL PT (9.0-12.0) sec INR (<1.2) BUN (9-20) mg/dL Glucose (74-99) mg/dL POC Glucose (mg/dL) 113 H (75-99) mg/dL TSH 7.880 H (0.465-4.680) mIU/L Microbiology - Last 24 Hours (Table) 02/09/17 13:40 Blood Culture - Preliminary Blood No Growth after 48 hours Assessment and Plan Assessment: #1 sepsis secondary to bilateral lower action T venostasis ulcers with surrounding cellulitis. Patient does have mucositis and tachycardia on admission 2 peripheral vascular disease #3 mild hyperkalemia. We will hold spironolactone. #4 acute kidney injury likely prerenal #5 diabetes type #6 hypertension #7 paroxysmal atrial fibrillation on anticoagulation with Coumadin #8hearing disorder Plan: Plan: Continue on current medication regime ,monitoring and symptomatic treatment. Antibiotics and wound care as per infectious disease. Recommendations pending from vascular surgery. Daily PT INR, Coumadin monitoring,. Atrial fibrillation remains uncontrolled, low 100s up to the 120s and med adjustments made as per cardiology. Discharge planning in progress once A. fib controlled. The impression and plan of care has been dictated as directed. : I performed a history and examination of this patient, discussed the same with the dictator. I agree with the dictator's note ,documented as a scribe. Any additional findings or plans will be noted.
--- NOTE | 2017-02-11 16:50 | PN ---
PROGRESS NOTE DATE OF SERVICE: 02/11/2017 REASON FOR FOLLOWUP: Bilateral lower extremity venous stasis ulcer and cellulitis. INTERVAL HISTORY: The patient is afebrile, has been breathing comfortably. Denies significant chest pain. No cough. Pain to the leg area has improved. On admission, still having significant drainage at the time of dressing changes, but no purulent secretion. EXAMINATION: Blood pressure is 104/59 with a pulse of 120, temperature 97.8. He is 91% on room air. General description is an elderly male up in the room in no distress. Respiratory system unlabored breathing. Some decreased breath sounds at the bases. No wheeze. Heart S1, S2. Tachycardia. ABDOMEN: Soft. No tenderness. Legs: Wound currently wrapped up. No drainage on the dressing. LABS: Hemoglobin 11.4, white count 10.3 with a BUN of 34, creatinine 1.07. Blood cultures have been negative. DIAGNOSTIC IMPRESSION AND PLAN: Patient bilateral extremity venous stasis ulcer with secondary cellulitis. The patient at this time will continue cefazolin with the plan to finish therapy with oral Keflex. Local wound care with Aquacel Silver will be applied dry, followed by Bill wrap for compression. Continue supportive care. MMODL / IJN: [id number] /
[2017-02-11 17:05] LABS: Glucose,Whole Blood 152 mg/dL (75-99)
[2017-02-11] MEDS ORDERED: WARFARIN 2 MG TAB PO SCH (18:00)
[2017-02-11 20:40] LABS: Glucose,Whole Blood 129 mg/dL (75-99)
[2017-02-11] MEDS: METOPROLOL TARTRATE 25 MG TAB PO SCH (20:42)
[2017-02-11] MEDS: VERAPAMIL 40 MG TAB PO SCH (20:42)
[2017-02-12 07:35] LABS: Glucose,Whole Blood 120 mg/dL (75-99)
[2017-02-12] MEDS: IPRATROPIUM-ALBUTEROL 3 ML NEB INHALATION SCH ×2 (07:54→11:32)
[2017-02-12] MEDS: ceFAZolin 2 GM in SODIUM CHLORIDE 0.9% 100 ML IVPB SCH (08:01)
[2017-02-12] MEDS: LINAGLIPTIN 5 MG TABLET PO SCH (08:02)
[2017-02-12] MEDS: PANTOPRAZOLE 40 MG TABLET PO SCH (08:03)
[2017-02-12] MEDS: FUROSEMIDE 20 MG TAB PO SCH (08:05)
[2017-02-12] MEDS: METOPROLOL TARTRATE 25 MG TAB PO SCH (08:05)
[2017-02-12] MEDS: VERAPAMIL 40 MG TAB PO SCH (08:05)
[2017-02-12] MEDS: MULTIVITAMINS, THERA 1 EACH TAB PO SCH (08:06)
[2017-02-12] MEDS: SPIRONOLACTONE 25 MG TAB PO SCH (08:06)
[2017-02-12 08:20] LABS: Basophils # (A) 0.1 k/uL (0-0.2); Basophils % (A) 1 %; CH 29.8; Eosinophils # (A) 0.6 k/uL (0-0.7); Eosinophils % (A) 6 %; HDW 2.68; HGB 11.9 gm/dL (13.0-17.5); Hypochromasia Slight; Luc # (Auto) 0.16; Luc % (Auto) 2; Lymphocytes # (A) 0.4 k/uL (1.0-4.8); Lymphocytes % (A) 5 %; MCH 29.5 pg (25.0-35.0); MCHC 30.4 g/dL (31.0-37.0); MCV 96.8 fL (80.0-100.0); Mean Platelet Volume 6.7; Monocytes # (A) 0.6 k/uL (0-1.0); Monocytes % (A) 7 %; Neutrophils # (A) 7.2 k/uL (1.3-7.7); Neutrophils % (A) 80 %; RBC 4.03 m/uL (4.30-5.90); RDW 14.7 % (11.5-15.5); WBC (Perox) 9.15
[2017-02-12 08:22] VITALS: BP 108/78; RESP 22; TEMP 97
[2017-02-12 08:27] LABS: INR 2.6 (<1.2); Prothrombin Time 25.4 sec (9.0-12.0)
[2017-02-12 08:34] LABS: Anion Gap 11 mmol/L; Blood Urea Nitrogen 35 mg/dL (9-20); Calcium 8.6 mg/dL (8.4-10.2); Carbon Dioxide 24 mmol/L (22-30); Chloride 102 mmol/L (98-107); Glucose 112 mg/dL (74-99); Non-African American GFR(MDRD) >60 (>60 ml/min/1.73 sqM); Potassium 4.5 mmol/L (3.5-5.1); Sodium 137 mmol/L (137-145)
[2017-02-12 11:40] LABS: Glucose,Whole Blood 134 mg/dL (75-99)
[2017-02-12 11:47] VITALS: PULSE 90
--- NOTE | 2017-02-13 01:36 | P.DS ---
Providers Date of admission: 02/09/17 15:04 Expected date of discharge: 02/12/17 Attending physician: Ken Pleitez Consults: 02/09/17 15:03 Consult Physician Urgent Consulting Provider: Pako Soni Consult Reason/Comments: Bilateral leg cellulitis, vascular insufficiency Do you want consulting provider notified?: Yes 02/09/17 17:25 Consult Physician Routine Consulting Provider: German Matias Consult Reason/Comments: wounds/antibx Do you want consulting provider notified?: Yes 02/10/17 23:35 Consult Physician Routine Consulting Provider: Hayden Cole Consult Reason/Comments: afib Do you want consulting provider notified?: Yes, Notify in am Primary care physician: Sana Bartlett Hospital Course: Discharge diagnosis #1 sepsis secondary to bilateral lower action T venostasis ulcers with surrounding cellulitis. Patient does have leukocytosis and tachycardia on admission 2 peripheral vascular disease #3 mild hyperkalemia. We will hold spironolactone. #4 acute kidney injury likely prerenal #5 diabetes type #6 hypertension #7 paroxysmal atrial fibrillation on anticoagulation with Coumadin her heart rate improved #8 hearing disorder Hospital course Interval history:patient is a 82-year-old malethe past medical history of hypertension, diabetes type 2, atrial fibrillation on anticoagulation and chronic venous stasis and ulcers and peripheral vascular disease presents emergency Department chief complaint of bilateral lower extremity wounds. Patient states his chronic wounds which he is normally seen at the wound center. Patient states he was seen Tuesday and today. Patient was sent over here for the wounds secondary to increase swelling and redness. Patient denied any fever, chills. denied any injury or recent illnesses. No complaints of chest pain or short of breath. patient follows with Dr. Soni in the wound care clinic. 02/11/2017. ambulating around in room, tolerating increase in exertion well. Afebrile. Maintained on IV antibiotics as per infectious disease. Blood cultures remain negative at 48 hours. Telemetry reporting atrial fibrillation, uncontrolled with heart rates mainly hanging in the low 100s up to 120s. Beta donovan increased, verapamil resumed. Denies chest pain, palpitations or increasing shortness of breath. TSH 7.880 and free T4 1.42. 02/12/2017 Patient was restarted on his home beta blockers and diuretics. Patient did improve symptomatically. Heart rate is better controlled. Patient wants to be discharged home today. Patient was continued on antibiotics in the form of cefazolin IV in the hospital. Leg swelling and cellulitis much improved now.. Daily PT INR, Coumadin monitoring,. Atrial fibrillation remains uncontrolled, low 100s up to the 120s and med adjustments made as per cardiology. Heart rate is better controlled now. Patient is stable to be discharged home. Discharge physical examination was done. Patient Condition at Discharge: Fair Plan - Discharge Summary New Discharge Prescriptions: New Metoprolol Tartrate [Lopressor] 25 mg PO BID #60 tab Cephalexin [Keflex] 500 mg PO Q8HR 5 Days #15 cap Continue Spironolactone [Aldactone] 25 mg PO DAILY Furosemide [Lasix] 20 mg PO BID@0800,1500 sitaGLIPtin [Januvia] 100 mg PO DAILY Warfarin Sodium [Coumadin] 4 mg PO MO Verapamil [Isoptin] 20 mg PO Q48H Polyethylene Glycol 3350 [Miralax] 17 gm PO DAILY PRN PRN Reason: Constipation Warfarin Sodium [Coumadin] 6 mg PO SUTUWETHFRSA Multivitamins, Thera [Multivitamin (formulary)] 1 tab PO DAILY Discontinued Metoprolol Tartrate [Lopressor] 12.5 mg PO Q48H Discharge Medication List Spironolactone [Aldactone] 25 mg PO DAILY 04/24/14 [History] Furosemide [Lasix] 20 mg PO BID@0800,1500 08/29/15 [History] Warfarin Sodium [Coumadin] 4 mg PO MO 09/15/15 [History] sitaGLIPtin [Januvia] 100 mg PO DAILY 09/15/15 [History] Multivitamins, Thera [Multivitamin (formulary)] 1 tab PO DAILY 02/09/17 [History ] Polyethylene Glycol 3350 [Miralax] 17 gm PO DAILY PRN 02/09/17 [History] Verapamil [Isoptin] 20 mg PO Q48H 02/09/17 [History] Warfarin Sodium [Coumadin] 6 mg PO SUTUWETHFRSA 02/09/17 [History] Cephalexin [Keflex] 500 mg PO Q8HR 5 Days #15 cap 02/12/17 [Rx] Metoprolol Tartrate [Lopressor] 25 mg PO BID #60 tab 02/12/17 [Rx] Follow up Appointment(s)/Referral(s): [facility], [NON-STAFF] - As Needed Sana Bartlett MD [Primary Care Provider] - 1-2 days Patient Instructions/Handouts: Heart Failure (DC), Cellulitis (DC), Venous Insufficiency (DC) Discharge Disposition: HOME WITH HOME HEALTH SERVICES
[2017-02-14] MEDS ORDERED: WARFARIN 2 MG TAB PO SCH (18:00)
== END 2017-02-12 13:51 | disposition home health service (06) | DRG 872 ==
LOC: EC 11:57 → 4MS4W 15:04
PROVIDERS: ADMIT Internal Medicine; ATTEND Internal Medicine
DX: A41.9 Sepsis, unspecified organism (principal); N17.9 Acute kidney failure, unspecified; I42.9 Cardiomyopathy, unspecified; I50.22 Chronic systolic (congestive) heart failure; L03.115 Cellulitis of right lower limb; L03.116 Cellulitis of left lower limb; L97.919 Non-pressure chronic ulcer of unspecified part of right lower leg with unspecified severity; L97.929 Non-pressure chronic ulcer of unspecified part of left lower leg with unspecified severity; I95.89 Other hypotension; I11.0 Hypertensive heart disease with heart failure; E11.51 Type 2 diabetes mellitus with diabetic peripheral angiopathy without gangrene; E11.622 Type 2 diabetes mellitus with other skin ulcer; E78.5 Hyperlipidemia, unspecified; E87.5 Hyperkalemia; H91.90 Unspecified hearing loss, unspecified ear; I25.10 Atherosclerotic heart disease of native coronary artery without angina pectoris; I48.0 Paroxysmal atrial fibrillation; I87.2 Venous insufficiency (chronic) (peripheral); J44.9 Chronic obstructive pulmonary disease, unspecified; D64.9 Anemia, unspecified; Z79.01 Long term (current) use of anticoagulants; Z79.84 Long term (current) use of oral hypoglycemic drugs; Z79.899 Other long term (current) drug therapy; Z88.8 Allergy status to other drugs, medicaments and biological substances; Z87.891 Personal history of nicotine dependence
CPT/HCPCS: 36415; 80048; 80053; 83605; 83735; 84439; 84443; 85025; 85610; 85730; 87040; 93005; 93306; 94640; 94760; 96365; 99284

== ENCOUNTER 2017-04-24 15:18 | Inpatient (IN) | payer MEDICARE ==
[2017-04-24] MEDS ORDERED: SODIUM CHLORIDE 0.9% 1,000 ML IV STA (16:33)
[2017-04-24 17:10] LABS: Anisocytosis Slight; Basophils # (A) 0.1 k/uL (0-0.2); Basophils % (A) 1 %; Eosinophils # (A) 0.2 k/uL (0-0.7); Eosinophils % (A) 1 %; HCT 40.1 % (39.0-53.0); HGB 12.3 gm/dL (13.0-17.5); Hypochromasia Slight; Lymphocytes # (A) 0.4 k/uL (1.0-4.8); Lymphocytes % (A) 3 %; MCH 29.6 pg (25.0-35.0); MCHC 30.8 g/dL (31.0-37.0); MCV 96.2 fL (80.0-100.0); Macrocytosis Slight; Mean Platelet Volume 7.2; Monocytes # (A) 0.8 k/uL (0-1.0); Monocytes % (A) 6 %; Neutrophils # (A) 10.4 k/uL (1.3-7.7); Neutrophils % (A) 87 %; Platelet Count 324 k/uL (150-450); RBC 4.16 m/uL (4.30-5.90); RDW 17.4 % (11.5-15.5)
[2017-04-24 17:11] LABS: Appearance,Urine Clear (Clear); Bilirubin,Urine Negative (Negative); Blood,Urine Negative (Negative); Color,Urine Yellow; Glucose,Urine (UA) Negative (Negative); Ketones,Urine Negative (Negative); Leukocyte Esterase,Urine Negative (Negative); Nitrite,Urine Negative (Negative); PH, Urine 5.5 (5.0-8.0); Protein,Urine Trace (Negative); Specific Gravity,Urine 1.011 (1.001-1.035); Urobilinogen,Urine <2.0 mg/dL (<2.0)
[2017-04-24 17:22] LABS: ALT 33 U/L (21-72); AST 26 U/L (17-59); Albumin 3.2 g/dL (3.5-5.0); Alkaline Phosphatase 86 U/L (38-126); Amylase 52 U/L (30-110); Anion Gap 8 mmol/L; Blood Urea Nitrogen 53 mg/dL (9-20); Calcium 8.7 mg/dL (8.4-10.2); Carbon Dioxide 38 mmol/L (22-30); Chloride 94 mmol/L (98-107); Glucose 140 mg/dL (74-99); Lipase 90 U/L (23-300); Potassium 4.6 mmol/L (3.5-5.1); Sodium 140 mmol/L (137-145); Total Bilirubin 0.4 mg/dL (0.2-1.3); Total Protein 6.6 g/dL (6.3-8.2)
[2017-04-24 17:25] LABS: INR 1.8 (<1.2); Partial Thromboplastin Time 29.4 sec (22.0-30.0); Prothrombin Time 16.7 sec (9.0-12.0)
--- NOTE | 2017-04-24 17:44 | XR ---
EXAMINATION TYPE: XR chest 2V DATE OF EXAM: 04/24/2017 COMPARISON: 04/01/2017 HISTORY: Atrial fibrillation. Abdominal pain TECHNIQUE: Frontal and lateral views of the chest are obtained. FINDINGS: Heart is enlarged. There is pulmonary vascular congestion. There is blunting of costophren ic angles. Bony thorax appears intact. IMPRESSION: Congestive heart failure with pleural effusions that is slightly worse than last exam.
--- NOTE | 2017-04-24 17:45 | XR ---
EXAMINATION TYPE: XR KUB DATE OF EXAM: 04/24/2017 COMPARISON: NONE HISTORY: Abdominal pain TECHNIQUE: 2 views FINDINGS: There is no sign of intestinal obstruction or pneumoperitoneum. There are bilateral pleural effusions. There is atherosclerotic vascular calcification. There are no pathologic calcifications o glenys the kidneys. IMPRESSION: Nonacute abdomen. Pleural effusions.
--- NOTE | 2017-04-24 17:51 | ED ---
Abdominal Pain HPI - General Chief Complaint: Abdominal Pain Stated Complaint: Ascites Time Seen by Provider: 04/24/17 15:55 Source: patient, RN notes reviewed, old records reviewed Mode of arrival: wheelchair Limitations: no limitations - History of Present Illness Initial Comments: 82-year-old male presents to the emergency department today with CC of abdominal distension. Patient reports that he has a history of CHF and A. fib. He is following in the wound clinic due to chronic venous status and ulcers. Patient states that he was told to come to the emergency department for further evaluation due to abdominal swelling and distention. He reports that he had 9 L of fluid drained from the abdomen in the beginning of the month. Patient states that he is somewhat short of breath. He reports it's been increasingly worse over the past month. He denies any fever or chills. Denies any specific chest pain. He denies any localized abdominal pain just complains of discomfort and distention. Patient states that he has had no nausea or vomiting. Denies any change in bowel habits. - Related Data Home Medications Medication Instructions Recorded Confirmed sitaGLIPtin [Januvia] 100 mg PO DAILY 09/15/15 04/24/17 Multivitamins, Thera [Multivitamin 1 tab PO DAILY 02/09/17 04/24/17 (formulary)] Polyethylene Glycol 3350 [Miralax] 17 gm PO DAILY PRN 02/09/17 04/24/17 Ferrous Gluconate 324 mg PO BID 03/16/17 04/24/17 Warfarin [Coumadin] 3 mg PO SUTUTHSA 03/16/17 04/24/17 Docusate [Colace] 100 mg PO BID PRN 04/24/17 04/24/17 Warfarin Sodium [Coumadin] 4.5 mg PO DAILY 04/24/17 04/24/17 Previous Rx's Medication Instructions Recorded Acetaminophen Tab [Tylenol] 650 mg PO Q6HR PRN tab 03/25/17 Furosemide [Lasix] 80 mg PO BID@0900,1600 #60 tab 03/25/17 Ipratropium-Albuterol Nebulize 3 ml INHALATION RT-QID #120 03/25/17 [Duoneb 0.5 mg-3 mg/3 ml Soln] ampul.neb Metoprolol Tartrate [Lopressor] 100 mg PO BID #120 tab 03/25/17 Allergies Allergy/AdvReac Type Severity Reaction Status Date / Time ciprofloxacin [From Cipro] Allergy Rash/Hives Verified 04/24/17 16:14 Yceydqu-Cls-Tdv Reductase Allergy Rash/Hives Verified 04/24/17 16:14 Inhibitor Review of Systems ROS Statement: Those systems with pertinent positive or pertinent negative responses have been documented in the HPI. ROS Other: All systems not noted in ROS Statement are negative. Past Medical History Past Medical History: Atrial Fibrillation, Coronary Artery Disease (CAD), Heart Failure, Diabetes Mellitus, Hyperlipidemia, Hypertension Additional Past Medical History / Comment(s): Congestion heart failure with diastolic dysfunction chronic lower extremity edema and chronic venous ulcers of the lower extremities bilaterally with previous infections with Pseudomonas, MSSA and strep group B, peripheral vascular disease, recurrent cellulitis and superficial ulceration of the lower extremities bilaterally History of Any Multi-Drug Resistant Organisms: MRSA, Other MDRO Date of last positivie culture/infection: unk MDRO Source:: unk Past Surgical History: Heart Catheterization, Hernia Repair Additional Past Surgical History / Comment(s): COLONOSCOPY 3, right inguinal hernia repair, bilateral cataract removal and lens implants, NASAL FRACTURE Past Anesthesia/Blood Transfusion Reactions: No Reported Reaction Past Psychological History: No Psychological Hx Reported Smoking Status: Former smoker Past Alcohol Use History: None Reported Past Drug Use History: None Reported - Past Family History Mother Family Medical History: Diabetes Mellitus Father Family Medical History: Prostate Disorder Additional Family Medical History / Comment(s): bowel disorder General Exam - General Exam Comments Initial Comments: 82-year-old male. Limitations: no limitations General appearance: alert, in no apparent distress Head exam: Present: atraumatic, normocephalic, normal inspection Eye exam: Present: normal appearance ENT exam: Present: normal exam, normal oropharynx, mucous membranes moist Neck exam: Present: normal inspection. Absent: tenderness, meningismus, lymphadenopathy Respiratory exam: Present: decreased breath sounds (bilaterally). Absent: normal lung sounds bilaterally, respiratory distress, wheezes, rales, rhonchi, stridor Cardiovascular Exam: Present: regular rate, normal rhythm, normal heart sounds. Absent: systolic murmur, diastolic murmur, rubs, gallop, clicks GI/Abdominal exam: Present: soft, normal bowel sounds, other (Ends of the distended abdomen.). Absent: distended, tenderness, guarding, rebound, rigid, diminished bowel sounds Extremities exam: Present: normal inspection, other (Patient has SWATHI wraps over bilateral legs. ) Back exam: Present: normal inspection Neurological exam: Present: alert, oriented X3, CN II-XII intact Psychiatric exam: Present: normal affect, normal mood Skin exam: Present: warm, dry, intact, normal color. Absent: rash Course Vital Signs 04/24/17 04/24/17 15:31 18:32 Temperature 97 F L Pulse Rate 95 88 Respiratory 20 16 Rate Blood Pressure 101/75 109/76 O2 Sat by Pulse 92 L 96 Oximetry Medical Decision Making - Medical Decision Making 22-year-old male with history of CHF, and A. fib presents with worsening shortness of breath, and abdominal distention. He reports he feels again sat fluid drained from his abdomen, patient states that he has had no fever or chills. He reports that he was told to use oxygen at home but is not been using it regularly. Patient appeared to have labored breathing, mildly hypoxic and oxygen saturation 92% on room air. He does have significant abdominal distention. Diminished lung sounds in bilateral lung baxter. Patient was placed on oxygen EKG and lab work obtained. EKG shows A. fib. This is stable. Patient chest x-ray shows evidence of bilateral pleural effusion. Somewhat worse than his previous effusions. Patient was informed of this. Patient has an elevated BNP of 5170. Troponin is negative. Patient's renal function is poor, but his BUN and creatinine are significantly better from previous labs. Patient did this and was admitted for acute CHF exacerbation. - Lab Data Result diagrams: 04/24/17 16:51 04/24/17 16:51 Lab Results 04/24/17 04/24/17 04/24/17 Range/Units 16:51 16:51 16:51 WBC 12.0 H (3.8-10.6) k/uL RBC 4.16 L (4.30-5.90) m/uL Hgb 12.3 L (13.0-17.5) gm/dL Hct 40.1 (39.0-53.0) % MCV 96.2 (80.0-100.0) fL MCH 29.6 (25.0-35.0) pg MCHC 30.8 L (31.0-37.0) g/dL RDW 17.4 H (11.5-15.5) % Plt Count 324 (150-450) k/uL Neutrophils % 87 % Lymphocytes % 3 % Monocytes % 6 % Eosinophils % 1 % Basophils % 1 % Neutrophils # 10.4 H (1.3-7.7) k/uL Lymphocytes # 0.4 L (1.0-4.8) k/uL Monocytes # 0.8 (0-1.0) k/uL Eosinophils # 0.2 (0-0.7) k/uL Basophils # 0.1 (0-0.2) k/uL Hypochromasia Slight Anisocytosis Slight Macrocytosis Slight PT (9.0-12.0) sec INR (<1.2) APTT (22.0-30.0) sec Sodium 140 (137-145) mmol/L Potassium 4.6 (3.5-5.1) mmol/L Chloride 94 L (98-107) mmol/L Carbon Dioxide 38 H (22-30) mmol/L Anion Gap 8 mmol/L BUN 53 H (9-20) mg/dL Creatinine 1.30 H (0.66-1.25) mg/dL Est GFR (MDRD) Af Amer >60 (>60 ml/min/1.73 sqM) Est GFR (MDRD) Non-Af 53 (>60 ml/min/1.73 sqM) Glucose 140 H (74-99) mg/dL Plasma Lactic Acid Deandre 1.7 (0.7-2.0) mmol/L Calcium 8.7 (8.4-10.2) mg/dL Total Bilirubin 0.4 (0.2-1.3) mg/dL AST 26 (17-59) U/L ALT 33 (21-72) U/L Alkaline Phosphatase 86 (38-126) U/L Troponin I (0.000-0.034) ng/mL NT-Pro-B Natriuret Pep pg/mL Total Protein 6.6 (6.3-8.2) g/dL Albumin 3.2 L (3.5-5.0) g/dL Amylase 52 (30-110) U/L Lipase 90 (23-300) U/L Urine Color Urine Appearance (Clear) Urine pH (5.0-8.0) Ur Specific Ashmore (1.001-1.035) Urine Protein (Negative) Urine Glucose (UA) (Negative) Urine Ketones (Negative) Urine Blood (Negative) Urine Nitrite (Negative) Urine Bilirubin (Negative) Urine Urobilinogen (<2.0) mg/dL Ur Leukocyte Esterase (Negative) 04/24/17 04/24/17 04/24/17 Range/Units 16:51 16:51 16:51 WBC (3.8-10.6) k/uL RBC (4.30-5.90) m/uL Hgb (13.0-17.5) gm/dL Hct (39.0-53.0) % MCV (80.0-100.0) fL MCH (25.0-35.0) pg MCHC (31.0-37.0) g/dL RDW (11.5-15.5) % Plt Count (150-450) k/uL Neutrophils % % Lymphocytes % % Monocytes % % Eosinophils % % Basophils % % Neutrophils # (1.3-7.7) k/uL Lymphocytes # (1.0-4.8) k/uL Monocytes # (0-1.0) k/uL Eosinophils # (0-0.7) k/uL Basophils # (0-0.2) k/uL Hypochromasia Anisocytosis Macrocytosis PT 16.7 H (9.0-12.0) sec INR 1.8 H (<1.2) APTT 29.4 (22.0-30.0) sec Sodium (137-145) mmol/L Potassium (3.5-5.1) mmol/L Chloride (98-107) mmol/L Carbon Dioxide (22-30) mmol/L Anion Gap mmol/L BUN (9-20) mg/dL Creatinine (0.66-1.25) mg/dL Est GFR (MDRD) Af Amer (>60 ml/min/1.73 sqM) Est GFR (MDRD) Non-Af (>60 ml/min/1.73 sqM) Glucose (74-99) mg/dL Plasma Lactic Acid Deandre (0.7-2.0) mmol/L Calcium (8.4-10.2) mg/dL Total Bilirubin (0.2-1.3) mg/dL AST (17-59) U/L ALT (21-72) U/L Alkaline Phosphatase (38-126) U/L Troponin I <0.012 (0.000-0.034) ng/mL NT-Pro-B Natriuret Pep 5170 pg/mL Total Protein (6.3-8.2) g/dL Albumin (3.5-5.0) g/dL Amylase (30-110) U/L Lipase (23-300) U/L Urine Color Urine Appearance (Clear) Urine pH (5.0-8.0) Ur Specific Ashmore (1.001-1.035) Urine Protein (Negative) Urine Glucose (UA) (Negative) Urine Ketones (Negative) Urine Blood (Negative) Urine Nitrite (Negative) Urine Bilirubin (Negative) Urine Urobilinogen (<2.0) mg/dL Ur Leukocyte Esterase (Negative) 04/24/17 Range/Units 17:00 WBC (3.8-10.6) k/uL RBC (4.30-5.90) m/uL Hgb (13.0-17.5) gm/dL Hct (39.0-53.0) % MCV (80.0-100.0) fL MCH (25.0-35.0) pg MCHC (31.0-37.0) g/dL RDW (11.5-15.5) % Plt Count (150-450) k/uL Neutrophils % % Lymphocytes % % Monocytes % % Eosinophils % % Basophils % % Neutrophils # (1.3-7.7) k/uL Lymphocytes # (1.0-4.8) k/uL Monocytes # (0-1.0) k/uL Eosinophils # (0-0.7) k/uL Basophils # (0-0.2) k/uL Hypochromasia Anisocytosis Macrocytosis PT (9.0-12.0) sec INR (<1.2) APTT (22.0-30.0) sec Sodium (137-145) mmol/L Potassium (3.5-5.1) mmol/L Chloride (98-107) mmol/L Carbon Dioxide (22-30) mmol/L Anion Gap mmol/L BUN (9-20) mg/dL Creatinine (0.66-1.25) mg/dL Est GFR (MDRD) Af Amer (>60 ml/min/1.73 sqM) Est GFR (MDRD) Non-Af (>60 ml/min/1.73 sqM) Glucose (74-99) mg/dL Plasma Lactic Acid Deandre (0.7-2.0) mmol/L Calcium (8.4-10.2) mg/dL Total Bilirubin (0.2-1.3) mg/dL AST (17-59) U/L ALT (21-72) U/L Alkaline Phosphatase (38-126) U/L Troponin I (0.000-0.034) ng/mL NT-Pro-B Natriuret Pep pg/mL Total Protein (6.3-8.2) g/dL Albumin (3.5-5.0) g/dL Amylase (30-110) U/L Lipase (23-300) U/L Urine Color Yellow Urine Appearance Clear (Clear) Urine pH 5.5 (5.0-8.0) Ur Specific [place] 1.011 (1.001-1.035) Urine Protein Trace H (Negative) Urine Glucose (UA) Negative (Negative) Urine Ketones Negative (Negative) Urine Blood Negative (Negative) Urine Nitrite Negative (Negative) Urine Bilirubin Negative (Negative) Urine Urobilinogen <2.0 (<2.0) mg/dL Ur Leukocyte Esterase Negative (Negative) When compared to previous EKG there are: previous EKG unavailable 04/24/17 18:36 EKG performed at 1744 shows atrial fibrillation low voltage QRS.. Can't rule out anterior infarct. Abnormal EKG noted. Ventricular rate of 96 bpm. CA interval undetected. QRS duration 82 ms. There is 68/464 ms. No evidence of ST elevation or T-wave inversion. - Radiology Data Radiology results: report reviewed Congestive heart failure with pleural effusions with a slightly worse the last exam. KUB shows a nonacute abdomen. Evidence of pleural effusions. Disposition Clinical Impression: Venous stasis ulcer of right lower extremity, Dyspnea, Chronic a-fib, Pleural effusion due to CHF (congestive heart failure), Acute CHF Disposition: ADMITTED IP TO THIS HOSP Condition: Stable Time of Disposition: 18:11
[2017-04-24] MEDS: SODIUM CHLORIDE 0.9% 1,000 ML IV SCH (18:29)
[2017-04-24] MEDS ORDERED: FUROSEMIDE 10 MG/ML 4 ML VIAL IV ONE (18:30)
[2017-04-24] MEDS ORDERED: DOCUSATE 100 MG CAP PO PRN (18:49)
[2017-04-24] MEDS: FUROSEMIDE 10 MG/ML 4 ML VIAL IV SCH ×3 (20:53→20:55)
[2017-04-24] MEDS: WARFARIN 3 MG TAB PO SCH (20:54)
[2017-04-24] MEDS: FERROUS SULFATE 325 MG TAB PO SCH (21:20)
[2017-04-24] MEDS: METOPROLOL TARTRATE 50 MG TAB PO SCH (21:21)
[2017-04-24 21:28] LABS: Glucose,Whole Blood 151 mg/dL (75-99)
[2017-04-24] MEDS: IPRATROPIUM-ALBUTEROL 3 ML NEB INHALATION SCH (22:04)
[2017-04-25] MEDS: FUROSEMIDE 10 MG/ML 4 ML VIAL IV SCH ×3 (04:22→19:57)
[2017-04-25 06:25] LABS: Glucose,Whole Blood 116 mg/dL (75-99)
[2017-04-25 06:27] LABS: INR 1.8 (<1.2); Prothrombin Time 16.7 sec (9.0-12.0)
[2017-04-25] MEDS: IPRATROPIUM-ALBUTEROL 3 ML NEB INHALATION SCH ×4 (08:32→20:46)
[2017-04-25] MEDS: LINAGLIPTIN 5 MG TABLET PO SCH (08:52)
[2017-04-25] MEDS: FERROUS SULFATE 325 MG TAB PO SCH ×2 (08:52→19:57)
[2017-04-25] MEDS: ASPIRIN 325 MG TAB PO SCH (08:52)
[2017-04-25] MEDS: METOPROLOL TARTRATE 50 MG TAB PO SCH ×2 (08:52→19:57)
[2017-04-25] MEDS: MULTIVITAMINS, THERA 1 EACH TAB PO SCH (08:53)
[2017-04-25] MEDS ORDERED: FUROSEMIDE 80 MG TAB PO SCH (09:00)
[2017-04-25 11:45] LABS: Glucose,Whole Blood 154 mg/dL (75-99)
[2017-04-25] MEDS: WARFARIN 3 MG TAB PO SCH (16:17)
[2017-04-25 16:48] LABS: Glucose,Whole Blood 145 mg/dL (75-99)
[2017-04-25] MEDS: SODIUM CHLORIDE 0.9% 1,000 ML IV SCH (19:31)
[2017-04-25 21:17] LABS: Glucose,Whole Blood 182 mg/dL (75-99)
[2017-04-25] MEDS: INSULIN ASPART 100 UNIT/ML 1 ML 10 ML VIAL SQ SCH (21:40)
[2017-04-25] MEDS: ceFAZolin IN SWFI 2 GM/20 ML SYRINGE IVP SCH (23:42)
[2017-04-26] MEDS: FUROSEMIDE 10 MG/ML 4 ML VIAL IV SCH ×3 (02:15→19:59)
[2017-04-26] MEDS ORDERED: IPRATROPIUM-ALBUTEROL 3 ML NEB INHALATION PRN (05:37)
[2017-04-26 06:07] LABS: Glucose,Whole Blood 96 mg/dL (75-99)
[2017-04-26 06:36] LABS: Anisocytosis Slight; Basophils # (A) 0.1 k/uL (0-0.2); Basophils % (A) 1 %; Eosinophils # (A) 0.2 k/uL (0-0.7); Eosinophils % (A) 1 %; HCT 40.3 % (39.0-53.0); HGB 12.1 gm/dL (13.0-17.5); Hypochromasia Moderate; Lymphocytes # (A) 0.4 k/uL (1.0-4.8); Lymphocytes % (A) 3 %; MCH 28.8 pg (25.0-35.0); MCHC 30.1 g/dL (31.0-37.0); MCV 95.8 fL (80.0-100.0); Macrocytosis Slight; Mean Platelet Volume 7.3; Monocytes # (A) 0.8 k/uL (0-1.0); Monocytes % (A) 7 %; Neutrophils % (A) 87 %; Platelet Count 314 k/uL (150-450); RBC 4.21 m/uL (4.30-5.90); RDW 17.4 % (11.5-15.5); WBC 12.5 k/uL (3.8-10.6)
[2017-04-26 06:37] LABS: INR 1.9 (<1.2)
[2017-04-26 06:38] LABS: Prothrombin Time 17.7 sec (9.0-12.0)
[2017-04-26] MEDS: INSULIN ASPART 100 UNIT/ML 1 ML 10 ML VIAL SQ SCH ×4 (06:38→21:55)
[2017-04-26 06:47] LABS: Blood Urea Nitrogen 49 mg/dL (9-20); Calcium 8.9 mg/dL (8.4-10.2); Chloride 93 mmol/L (98-107); Glucose 119 mg/dL (74-99); Potassium 4.4 mmol/L (3.5-5.1); Sodium 141 mmol/L (137-145)
[2017-04-26 06:53] LABS: Anion Gap 6 mmol/L
[2017-04-26 06:55] LABS: Carbon Dioxide 42 mmol/L (22-30)
--- NOTE | 2017-04-26 09:04 | HP ---
HISTORY AND PHYSICAL DATE OF SERVICE: 04/25/2017 CHIEF COMPLAINT: Shortness of the breath. HISTORY OF PRESENT ILLNESS: This 82-year-old gentleman with a past medical history of multiple medical problems was admitted with CHF, acute exacerbation, pleural effusion and ascites in abdominal pelvis previously. Patient followed by Dr. Bartlett in the outpatient setting. During the previous admission, the patient had right thoracocentesis and a hydropneumothorax resulted. The patient also had ascitic fluid aspiration about 6 L fluid also. Currently the patient complained of abdominal distention, shortness of breath. The patient came to [facility] and was admitted for further evaluation and treatment. The patient also had bilateral venostasis ulcers being followed in the Wound Care Clinic also. There is no history of fever, rigors. No history of headache, loss of consciousness, seizures. PAST MEDICAL HISTORY: History of atrial fibrillation, history of CAD, history of CHF, diabetes mellitus type 2, hypertension, hyperlipidemia, history of CHF, history of cardiac catheterization. MEDICATIONS: Prior to admission include home medications are: 1. Coumadin 4.5 mg p.o. daily. 2. Januvia 100 mg p.o. daily. 3. Coumadin 3 mg Tuesday, , Tuesday. 4. MiraLAX 17 g p.o. daily p.r.n. 5. Multivitamins 1 p.o. daily. 6. Lopressor 100 mg p.o. b.i.d. 7. DuoNeb q.i.d. 8. Lasix 80 mg p.o. b.i.d. 9. Iron gluconate 320 mg p.o. b.i.d. 10.Colace 100 mg b.i.d. p.r.n. 11.Tylenol 650 q.6 p.r.n. ALLERGIES: CIPRO AND STATINS. FAMILY HISTORY: History of diabetes and bowel disorder. SOCIAL HISTORY: Previous history of smoking. No history of alcohol. REVIEW OF SYSTEMS: ENT: Diminished hearing or vision. CARDIOVASCULAR: As mentioned earlier. RESPIRATORY: As mentioned earlier. GI: As mentioned earlier. : No dysuria. NERVOUS SYSTEM: No numbness or weakness. ALLERGY/IMMUNOLOGY: No history of asthma. MUSCULOSKELETAL: As mentioned earlier. HEMATOLOGY: No history of anemia. ENDOCRINE: As mentioned earlier. CONSTITUTIONAL: As mentioned earlier. DERMATOLOGY As mentioned earlier. RHEUMATOLOGY: Negative. PSYCHIATRY: As mentioned earlier. PHYSICAL EXAMINATION: Alert and oriented x3. Pulse 103, blood pressure 101/72, respirations 16, temperature 97.1, pulse ox 97% on 2 L. HEENT: Conjunctivae normal. Oral mucosa moist. NECK: No jugular venous distention. No carotid bruit. No lymph node enlargement. CARDIOVASCULAR: S1, S2. RESPIRATORY: Breath sounds diminished in the bases. A few scattered rhonchi and crackles. ABDOMEN: Soft, obese. Ascites present. No tenderness. No guarding. No rigidity. LEGS: Status post bilateral leg swelling and bilateral leg cellulitis also present. Some excoriation also present. NERVOUS SYSTEM: Higher functions as mentioned earlier, moves all 4 limbs, no focal motor deficits. LYMPHATICS: No lymphadenopathy in the neck, groin or axilla. SKIN: As mentioned earlier. Some bluish discoloration of both feet also present. JOINTS: No active deforming arthropathy. LAB INVESTIGATIONS: At this time showed Accu-Cheks 116, 154, 145. INR is 1.8. WBC 12, and creatinine is 1.30. ASSESSMENT: 1. Congestive heart failure acute exacerbation with acute on chronic systolic dysfunction, ejection fraction 40%. 2. Pleural effusion, right more than the left. 3. Ascites. 4. History of thoracocentesis on the right and hydropneumothorax recent. 5. History atrial fibrillation. 6. History of coronary artery disease. 7. History of diabetes mellitus type 2. 8. Hypertension. 9. Hyperlipidemia. 10.Bilateral leg ulcers and venostasis ulcers. 11.Previous infection of Pseudomonas, MSSA and strep group B. 12.Increased WBC. 13.Increased creatinine with chronic kidney disease stage III. RECOMMENDATIONS AND DISCUSSION: I recommend to continue current management and symptomatic treatment. Otherwise I would recommend continue with current medications. Continue with empiric antibiotics. Cardiology consultation. Monitor fluid and electrolytes balance closely. Diuresis. Guarded prognosis because of multiple complex medical issues. Further recommendations to follow. Copy of dictation to Dr. Bartlett who is the primary physician. MMKAROLL / JOHNNYN: [id number] /
--- NOTE | 2017-04-26 09:23 | P.CRDCN ---
History of Present Illness Consult date: 04/26/17 Requesting physician: Juan Aleman Consult reason: congestive heart failure Chief complaint: Fluid retention History of present illness: This is a pleasant 82-year-old gentleman with history of chronic diastolic congestive heart failure, chronic persistent atrial fibrillation, diabetes, hypertension, hyperlipidemia, referral vascular disease, chronic venous stasis, chronic anemia, chronic anasarca, who was at the wound clinic receiving treatment for his chronic venous stasis and ulcers, it was noted that the patient had significant abdominal distention and bilateral lower extremity edema and he was advised to come to the emergency room for further evaluation. Cardiology consultation was requested for congestive cardiac failure. Approximately one month ago, patient states that he did have 8 L of fluid removed from his abdomen at [facility]. KUB of the abdomen performed on admission did not reveal any acute findings, positive pleural effusions. Chest x-ray showed congestive heart failure with pleural effusions, slightly worsened prior chest x-ray. EKG shows atrial fibrillation with a controlled ventricular response. The pressure on arrival here 100/70 with a heart rate in the 90s, 92% on room air. Temperature 90.7. At pressure this morning 114/70, heart rate 118, 92% on 2 L of oxygen. White blood cell count 12.5, hemoglobin 12.1, platelet count 314. INR 1.9, sodium 141, potassium 4.4, BUN 49, creatinine 1.3. BNP level 5170, troponin 0.012. Patient states he slept well through the night last night, around 4:30 was quite short of breath, currently sitting up in the chair at bedside. Past Medical History Past Medical History: Atrial Fibrillation, Coronary Artery Disease (CAD), Heart Failure, Diabetes Mellitus, Hyperlipidemia, Hypertension Additional Past Medical History / Comment(s): Congestion heart failure with diastolic dysfunction chronic lower extremity edema and chronic venous ulcers of the lower extremities bilaterally with previous infections with Pseudomonas, MSSA and strep group B, peripheral vascular disease, recurrent cellulitis and superficial ulceration of the lower extremities bilaterally History of Any Multi-Drug Resistant Organisms: MRSA, Other MDRO Date of last positivie culture/infection: unk MDRO Source:: unk Past Surgical History: Heart Catheterization, Hernia Repair Additional Past Surgical History / Comment(s): COLONOSCOPY 3, right inguinal hernia repair, bilateral cataract removal and lens implants, NASAL FRACTURE Past Anesthesia/Blood Transfusion Reactions: No Reported Reaction Past Psychological History: No Psychological Hx Reported Additional Psychological History / Comment(s): He is and has one stepdaughter 4 grandchildren and multiple great-grandchildren. 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 Smoking Status: Former smoker Past Alcohol Use History: None Reported Additional Past Alcohol Use History / Comment(s): he was a smoker and quit 40 years ago. He denies any medical marijuana, marijuana, street drug or alcohol use. He is currently living with great grandson and has 2 cats in the home. He denies any recent travel. Past Drug Use History: None Reported - Past Family History Mother Family Medical History: Diabetes Mellitus Father Family Medical History: Prostate Disorder Additional Family Medical History / Comment(s): bowel disorder Medications and Allergies Home Medications Medication Instructions Recorded Confirmed Type sitaGLIPtin [Januvia] 100 mg PO DAILY 09/15/15 04/24/17 History Multivitamins, Thera [Multivitamin 1 tab PO DAILY 02/09/17 04/24/17 History (formulary)] Polyethylene Glycol 3350 [Miralax] 17 gm PO DAILY PRN 02/09/17 04/24/17 History Ferrous Gluconate 324 mg PO BID 03/16/17 04/24/17 History Warfarin [Coumadin] 3 mg PO SUTUTHSA 03/16/17 04/24/17 History Acetaminophen Tab [Tylenol] 650 mg PO Q6HR PRN tab 03/25/17 04/24/17 Rx Furosemide [Lasix] 80 mg PO BID@0900,1600 #60 tab 03/25/17 04/24/17 Rx Ipratropium-Albuterol Nebulize 3 ml INHALATION RT-QID #120 03/25/17 04/24/17 Rx [Duoneb 0.5 mg-3 mg/3 ml Soln] ampul.neb Metoprolol Tartrate [Lopressor] 100 mg PO BID #120 tab 03/25/17 04/24/17 Rx Docusate [Colace] 100 mg PO BID PRN 04/24/17 04/24/17 History Warfarin Sodium [Coumadin] 4.5 mg PO DAILY 04/24/17 04/24/17 History Allergies Allergy/AdvReac Type Severity Reaction Status Date / Time ciprofloxacin [From Cipro] Allergy Rash/Hives Verified 04/24/17 21:20 Ejvvbrz-Qjk-Fqd Reductase Allergy Rash/Hives Verified 04/24/17 21:20 Inhibitor Physical Exam Vitals: Vital Signs Temp Pulse Pulse Resp BP Pulse Ox 04/26/17 05:49 112 H 04/26/17 05:41 112 H 04/26/17 04:00 97.2 F L 118 H 24 113/72 92 L 04/26/17 02:08 24 04/26/17 00:00 97.3 F L 90 20 86/58 94 L 04/25/17 21:04 90 04/25/17 20:47 88 04/25/17 20:00 97 F L 101 H 20 98/68 92 L 04/25/17 16:41 90 04/25/17 16:26 90 93 L 04/25/17 16:00 97.1 F L 103 H 16 101/72 97 04/25/17 15:41 16 04/25/17 13:26 96 04/25/17 13:15 96 04/25/17 12:00 96.7 F L 90 90/53 95 04/25/17 11:48 16 Intake and Output 04/25/17 04/26/17 04/26/17 22:59 06:59 14:59 Intake Total 300 360 Balance 300 360 Intake: Oral 300 360 Other: Voiding Method Toilet # Voids 1 3 Weight 105.4 kg PHYSICAL EXAMINATION: HEENT: Head is atraumatic, normocephalic. Pupils equal, round. Neck is supple. There is elevated jugular venous pressure. HEART EXAMINATION: Heart S1 and S2 irregularly irregular a systolic murmur is heard. CHEST EXAMINATION: Lungs reveal scattered coarse rhonchi throughout with diminished air entry to the bases. ABDOMEN: Obese, firm and distended . Bowel sounds are heard. No organomegaly noted. EXTREMITIES: 1+ peripheral pulses with 2+ evidence of peripheral edema , evidence of chronic venous stasis and ulcerations. NEUROLOGIC patient is awake, alert and oriented -3. . Results 04/26/17 06:09 04/26/17 06:09 Coagulation 04/26/17 Range/Units 06:09 PT 17.7 H (9.0-12.0) sec CBC 04/26/17 Range/Units 06:09 WBC 12.5 H (3.8-10.6) k/uL RBC 4.21 L (4.30-5.90) m/uL Hgb 12.1 L (13.0-17.5) gm/dL Hct 40.3 (39.0-53.0) % Plt Count 314 (150-450) k/uL Comprehensive Metabolic Panel 04/26/17 Range/Units 06:09 Sodium 141 (137-145) mmol/L Potassium 4.4 (3.5-5.1) mmol/L Chloride 93 L (98-107) mmol/L Carbon Dioxide 42 H* (22-30) mmol/L BUN 49 H (9-20) mg/dL Creatinine 1.33 H (0.66-1.25) mg/dL Glucose 119 H (74-99) mg/dL Calcium 8.9 (8.4-10.2) mg/dL Current Medications Generic Name Dose Route Start Last Admin Trade Name Freq PRN Reason Stop Dose Admin Acetaminophen 650 mg 04/24/17 18:49 Tylenol Tab PO Q6HR PRN Fever and/ or MILD Pain Albuterol/Ipratropium 3 ml 04/24/17 20:00 04/25/17 20:46 Duoneb 0.5 Mg-3 Mg/3 Ml Soln INHALATION 3 ml RT-QID FAM Administration Albuterol/Ipratropium 3 ml 04/26/17 05:37 04/26/17 05:41 Duoneb 0.5 Mg-3 Mg/3 Ml Soln INHALATION 3 ml RT-Q4H PRN Administration Shortness Of Breath Or Wheezing Aspirin 325 mg 04/25/17 09:00 04/25/17 08:52 Aspirin PO 325 mg DAILY FAM Administration Cefazolin Sodium 2 gm 04/26/17 00:00 04/25/17 23:42 Kefzol IVP 2 gm Q8HR FAM Administration Docusate Sodium 100 mg 04/24/17 18:49 Colace PO BID PRN Constipation Ferrous Sulfate 325 mg 04/24/17 21:00 04/25/17 19:57 Feosol PO 325 mg BID FAM Administration Furosemide 40 mg 04/24/17 03:00 04/26/17 02:15 Lasix IV 40 mg Q8H FAM Administration Sodium Chloride 1,000 mls @ 20 mls/hr 04/24/17 18:15 04/25/17 19:31 Saline 0.9% IV Not Given .Q24H [facility] Insulin Aspart 0 unit 04/25/17 21:00 04/26/17 06:38 Novolog SQ Not Given ACHS [facility] Protocol Linagliptin 5 mg 04/25/17 09:00 04/25/17 08:52 Tradjenta PO 5 mg DAILY FAM Administration Metoprolol Tartrate 100 mg 04/24/17 21:00 04/25/17 19:57 Lopressor PO 100 mg BID FAM Administration Multivitamins 1 each 04/25/17 12:00 04/25/17 08:53 Theragran PO 1 each 1200 [facility] Administration Polyethylene Glycol 17 gm 04/24/17 18:49 Miralax PO DAILY PRN Constipation Warfarin Sodium 3 mg 04/24/17 19:00 04/24/17 20:54 Coumadin PO Not Given [id number] FAM Warfarin Sodium 4.5 mg 04/25/17 18:00 04/25/17 16:17 Coumadin PO 4.5 mg [id number] [facility] Administration Intake and Output 04/25/17 04/26/17 04/26/17 22:59 06:59 14:59 Intake Total 300 360 Balance 300 360 Intake: Oral 300 360 Other: Voiding Method Toilet # Voids 1 3 Weight 105.4 kg 04/26/17 06:09 04/26/17 06:09 EKG Interpretations (text) EKG shows atrial fibrillation with a controlled ventricular response. Assessment and Plan Plan: Assessment and plan #1 diastolic congestive heart failure acute on chronic, patient patient did have an echocardiogram with Doppler study performed in January which revealed an ejection fraction of 40-45%, mild MR and mild to moderate TR. #2 chronic persistent atrial fibrillation #3 hypertension #4 hyperlipidemia #5 severe peripheral vascular disease #6 chronic anasarca #7 chronic anemia Plan We will repeat an echocardiogram with Doppler study. Continue current dose of IV Lasix, decrease aspirin 81 mg daily, continue metoprolol, continue Coumadin to maintain INR of 2-2.5. Contianue Monitoring intake and output along with daily weights. Further recommendations to follow. DNP note has been reviewed, I agree with a documented findings and plan of care. Patient was seen and examined.
[2017-04-26] MEDS: IPRATROPIUM-ALBUTEROL 3 ML NEB INHALATION SCH ×4 (09:28→21:04)
[2017-04-26] MEDS: FERROUS SULFATE 325 MG TAB PO SCH ×2 (09:35→19:59)
[2017-04-26] MEDS: MULTIVITAMINS, THERA 1 EACH TAB PO SCH (09:36)
[2017-04-26] MEDS: METOPROLOL TARTRATE 50 MG TAB PO SCH ×2 (09:36→19:59)
[2017-04-26] MEDS: LINAGLIPTIN 5 MG TABLET PO SCH (09:36)
[2017-04-26] MEDS: POLYETHYLENE GLYCOL 3350 17 GM POWD.PACK PO PRN (11:19)
[2017-04-26 11:20] LABS: Glucose,Whole Blood 157 mg/dL (75-99)
--- NOTE | 2017-04-26 11:25 | P.CNPUL ---
History of Present Illness Consult date: 04/26/17 Reason for consult: dyspnea, pleural effusion History of present illness: Pleasant 82-year-old male patient who was sent over to the hospital from the primary care physician due to increased shortness of breath and signs of fluid overload. The patient is known to me not taking care of him in the past. In fact we haven't drained this patient's right lung so a thoracentesis and the fluid was a transudate consistent with CHF. He is known to have CHF with diastolic dysfunction, chronic atrial fibrillation, chronic lower extremities edema and venous stasis in lower extremities bilaterally in addition to hypertension, hyperlipidemia and peripheral vascular disease. The patient also suffers from chronic renal failure and his current creatinine is around 1.3. The patient is or the be started on diuretics. He is on IV Lasix for now. Is producing adequate amount of urine output. No chest pain. No angina. No cough or sputum production. No pleurisy. Chest x-ray findings are essentially the same compared to the previous chest x-ray that was done approximately a month ago. There is a moderate-sized right-sided pleural effusion and a small left-sided pleural effusion along with that there is increased pulmonary vascular markings. The patient has a normal troponin. ProBNP level is slightly elevated at 5170. Review of Systems Constitutional: Reports fatigue, Reports weakness, Reports weight gain Eyes: denies blurred vision, denies bulging eye, denies decreased vision Ears: deny: decreased hearing, ear discharge, earache Ears, nose, mouth and throat: Denies headache, Denies sore throat Cardiovascular: Reports decreased exercise tolerance, Reports dyspnea on exertion, Reports edema, Reports irregular heart beat, Reports rapid heart beat , Reports shortness of breath Respiratory: Reports dyspnea along with previous history of pleural effusion Gastrointestinal: Reports as per HPI Genitourinary: Reports as per HPI Musculoskeletal: Reports limitation of motion Musculoskeletal: bilateral: ankle swelling, absent: ankle pain, ankle stiffness Integumentary: Reports as per HPI (Erythema and ulceration of the skin was essentially superficial below the knee extending between the knees and ankles bilaterally.), Reports foot/leg ulcers Neurological: Reports weakness Psychiatric: Denies anxiety, Denies depression Endocrine: Denies fatigue, Denies weight change Past Medical History Past Medical History: Atrial Fibrillation, Coronary Artery Disease (CAD), Heart Failure, Diabetes Mellitus, Hyperlipidemia, Hypertension Additional Past Medical History / Comment(s): Chronic bilateral pleural effusions, chronic atrial fibrillation, obesity, peripheral vascular disease, hypertension, hyperlipidemia, chronic renal failure, coronary artery disease, chronic anemia, large umbilical hernia, impaired hearing/deafness, Congestion heart failure with diastolic dysfunction chronic lower extremity edema and chronic venous ulcers of the lower extremities bilaterally with previous infections with Pseudomonas, MSSA and strep group B, peripheral vascular disease , recurrent cellulitis and superficial ulceration of the lower extremities bilaterally History of Any Multi-Drug Resistant Organisms: MRSA, Other MDRO Date of last positivie culture/infection: unk MDRO Source:: unk Past Surgical History: Heart Catheterization, Hernia Repair Additional Past Surgical History / Comment(s): COLONOSCOPY 3, right inguinal hernia repair, bilateral cataract removal and lens implants, NASAL FRACTURE Past Anesthesia/Blood Transfusion Reactions: No Reported Reaction Past Psychological History: No Psychological Hx Reported Additional Psychological History / Comment(s): He is and has one stepdaughter 4 grandchildren and multiple great-grandchildren. 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 Smoking Status: Former smoker Past Alcohol Use History: None Reported Additional Past Alcohol Use History / Comment(s): he was a smoker and quit 40 years ago. He denies any medical marijuana, marijuana, street drug or alcohol use. He is currently living with great grandson and has 2 cats in the home. He denies any recent travel. Past Drug Use History: None Reported - Past Family History Mother Family Medical History: Diabetes Mellitus Father Family Medical History: Prostate Disorder Additional Family Medical History / Comment(s): bowel disorder Medications and Allergies Home Medications Medication Instructions Recorded Confirmed Type sitaGLIPtin [Januvia] 100 mg PO DAILY 09/15/15 04/24/17 History Multivitamins, Thera [Multivitamin 1 tab PO DAILY 02/09/17 04/24/17 History (formulary)] Polyethylene Glycol 3350 [Miralax] 17 gm PO DAILY PRN 02/09/17 04/24/17 History Ferrous Gluconate 324 mg PO BID 03/16/17 04/24/17 History Warfarin [Coumadin] 3 mg PO SUTUTHSA 03/16/17 04/24/17 History Acetaminophen Tab [Tylenol] 650 mg PO Q6HR PRN tab 03/25/17 04/24/17 Rx Furosemide [Lasix] 80 mg PO BID@0900,1600 #60 tab 03/25/17 04/24/17 Rx Ipratropium-Albuterol Nebulize 3 ml INHALATION RT-QID #120 03/25/17 04/24/17 Rx [Duoneb 0.5 mg-3 mg/3 ml Soln] ampul.neb Metoprolol Tartrate [Lopressor] 100 mg PO BID #120 tab 03/25/17 04/24/17 Rx Docusate [Colace] 100 mg PO BID PRN 04/24/17 04/24/17 History Warfarin Sodium [Coumadin] 4.5 mg PO DAILY 04/24/17 04/24/17 History Allergies Allergy/AdvReac Type Severity Reaction Status Date / Time ciprofloxacin [From Cipro] Allergy Rash/Hives Verified 04/24/17 21:20 Tsttmax-Hdm-Rxu Reductase Allergy Rash/Hives Verified 04/24/17 21:20 Inhibitor Physical Exam Vitals: Vital Signs Temp Pulse Pulse Resp BP Pulse Ox 04/26/17 09:38 106 H 04/26/17 09:32 92 L 04/26/17 09:28 102 H 04/26/17 05:49 112 H 04/26/17 05:41 112 H 04/26/17 04:00 97.2 F L 118 H 24 113/72 92 L 04/26/17 02:08 24 04/26/17 00:00 97.3 F L 90 20 86/58 94 L 04/25/17 21:04 90 04/25/17 20:47 88 04/25/17 20:00 97 F L 101 H 20 98/68 92 L 04/25/17 16:41 90 04/25/17 16:26 90 93 L 04/25/17 16:00 97.1 F L 103 H 16 101/72 97 04/25/17 15:41 16 04/25/17 13:26 96 04/25/17 13:15 96 04/25/17 12:00 96.7 F L 90 90/53 95 04/25/17 11:48 16 Intake and Output 04/25/17 04/26/17 04/26/17 22:59 06:59 14:59 Intake Total 300 360 Balance 300 360 Intake: Oral 300 360 Other: Voiding Method Toilet # Voids 1 3 Weight 105.4 kg GENERAL EXAM: Alert, active, comfortable in no apparent distress. The patient on acute ST or distress. He is awake and alert. HEAD: Normocephalic. EYES: Normal reaction of pupils, equal size. NOSE: Clear with pink turbinates. THROAT: No erythema or exudates. NECK: No masses, there is positive JVDs, and there is also significant crowding of the posterior oropharynx. CHEST: No chest wall deformity. LUNGS: Equal air entry with no wheeze, rhonchi or dullness. There is faint crackles in the posterior bases. CVS: S1 and S2 normal with no audible murmurs, irregular rhythm. ABDOMEN: No hepatosplenomegaly, normal bowel sounds, no guarding or rigidity. Extremities: There is discoloration of lower extremity secondary to chronic venous stasis ulceration throughout the lower extremities bilaterally extending between the ankles and the knees.. Dressings are clean and dry. There remains one to 2+ peripheral edema. No clubbing, no cyanosis. Peripheral pulses are intact. Neurologically the patient is awake and alert and moving all flex images without any limitation. His OA 3. Results - Laboratory Findings CBC and BMP: 04/26/17 06:09 04/26/17 06:09 PT/INR, D-dimer PT 17.7 sec (9.0-12.0) H 04/26/17 06:09 INR 1.9 (<1.2) H 04/26/17 06:09 Abnormal lab findings: Abnormal Labs 04/24/17 04/24/17 04/24/17 16:51 16:51 16:51 WBC 12.0 H RBC 4.16 L Hgb 12.3 L MCHC 30.8 L RDW 17.4 H Neutrophils # 10.4 H Lymphocytes # 0.4 L PT 16.7 H INR 1.8 H Chloride 94 L Carbon Dioxide 38 H BUN 53 H Creatinine 1.30 H Glucose 140 H POC Glucose (mg/dL) Albumin 3.2 L Urine Protein 04/24/17 04/24/17 04/25/17 17:00 21:27 05:32 WBC RBC Hgb MCHC RDW Neutrophils # Lymphocytes # PT 16.7 H INR 1.8 H Chloride Carbon Dioxide BUN Creatinine Glucose POC Glucose (mg/dL) 151 H Albumin Urine Protein Trace H 04/25/17 04/25/17 04/25/17 06:23 11:43 16:42 WBC RBC Hgb MCHC RDW Neutrophils # Lymphocytes # PT INR Chloride Carbon Dioxide BUN Creatinine Glucose POC Glucose (mg/dL) 116 H 154 H 145 H Albumin Urine Protein 04/25/17 04/26/17 04/26/17 20:56 06:09 06:09 WBC 12.5 H RBC 4.21 L Hgb 12.1 L MCHC 30.1 L RDW 17.4 H Neutrophils # 11.0 H Lymphocytes # 0.4 L PT 17.7 H INR 1.9 H Chloride Carbon Dioxide BUN Creatinine Glucose POC Glucose (mg/dL) 182 H Albumin Urine Protein 04/26/17 06:09 WBC RBC Hgb MCHC RDW Neutrophils # Lymphocytes # PT INR Chloride 93 L Carbon Dioxide 42 H* BUN 49 H Creatinine 1.33 H Glucose 119 H POC Glucose (mg/dL) Albumin Urine Protein - Diagnostic Findings Chest x-ray: image reviewed Assessment and Plan Plan: Assessment 1 CHF exacerbation with development of bilateral pleural effusion right more than left and secondary shortness of breath. The patient had a thoracentesis of the right lung in February 2017 and a total of 1 L of pleural fluid was aspirated and the fluid was transudate with LDH and protein consistent with CHF. Furthermore, the fluid cytology was negative for malignancy. 2 chronic lower extremity edema and chronic venous ulceration, superficial ulceration with recurrent cellulitis involving the lower extremities. Previous cultures have shown pseudomonas aeruginosa, Enterococcus faecalis and MSSA 3 chronic atrial fibrillation with a subtherapeutic PT/INR maintained on long- term anticoagulation 4 obesity 5 peripheral vascular disease 6 diabetes mellitus 7 hypertension 8 hyperlipidemia 9 chronic renal failure, creatinine stable at 1.3 10 coronary artery disease 11 chronic hypotension 12 chronic anemia 13 history of ascites status post drainage of 6 L of abdominal fluid in February 2017 14 large umbilical hernia, patient to medical this point 15 impaired hearing 16 chronic anasarca Plan No need for thoracentesis as long as the pleural effusion is stable compared to the previous chest x-rays and the patient denies having any worsening shortness of breath. We'll resort to medical treatment. Continued IV Lasix. Continue together ventilation with warfarin to achieve an INR between 2 and 3. We'll suggest repeating the echocardiogram. Cardiology consultation. We'll continue to follow.
[2017-04-26] MEDS: ceFAZolin IN SWFI 2 GM/20 ML SYRINGE IVP SCH ×3 (12:18→23:50)
--- NOTE | 2017-04-26 13:12 | ECHOF ---
Referral Reason:chf MEASUREMENTS -------- HEIGHT: 177.8 cm WEIGHT: 105.2 kg BP: 113/72 RVIDd: 3.2 cm (< 3.3) IVSd: 1.2 cm (0.6 - 1.1) LVIDd: 3.4 cm (3.9 - 5.3) LVPWd: 1.2 cm (0.6 - 1.1) IVSs: 1.5 cm LVIDs: 2.6 cm LVPWs: 1.5 cm LA Diam: 5.1 cm (2.7 - 3.8) LAESV Index (A-L): 37.64 ml/m Ao Diam: 3.0 cm (2.0 - 3.7) MV EXCURSION: 17.007 mm (> 18.000) MV EF SLOPE: 147 mm/s (70 - 150) EPSS: 0.7 cm RAP: 5.00 mmHg RVSP: 26.95 mmHg FINDINGS -------- Atrial fibrillation. This was a technically difficult study with suboptimal views. The left ventricular size is normal. There is borderline concentric left ventricular hypertrophy. Overall left ventricular systolic function is low-normal with, an EF between 50 - 55 %. The right ventricle is normal in size. LA is moderately dilated 34-39 ml/m2 The right atrium is normal in size. 1.5mg of Definity was utilized for enhancement of images There is mild aortic valve sclerosis. The mitral valve leaflets are mildly thickened. Mild mitral annular calcification present. Mild m itral regurgitation is present. Mild tricuspid regurgitation present. Right ventricular systolic pressure is normal at < 35 mmHg. There is no pulmonic regurgitation present. CONCLUSIONS -------- 1. Atrial fibrillation. 2. This was a technically difficult study with suboptimal views. 3. The left ventricular size is normal. 4. There is borderline concentric left ventricular hypertrophy. 5. Overall left ventricular systolic function is low-normal with, an EF between 50 - 55 %. 6. The right ventricle is normal in size. 7. LA is moderately dilated 34-39 ml/m2 8. The right atrium is normal in size. 9. 1.5mg of Definity was utilized for enhancement of images 10. There is mild aortic valve sclerosis. 11. The mitral valve leaflets are mildly thickened. 12. Mild mitral annular calcification present. 13. Mild mitral regurgitation is present. 14. Mild tricuspid regurgitation present. 15. Right ventricular systolic pressure is normal at < 35 mmHg. 16. There is no pulmonic regurgitation present. LINK KNITTING MACHINE OPERATOR: Mayte Stanley RDCS
[2017-04-26 16:08] LABS: Hemoglobin A1C 6.8 % (4.0-6.0)
[2017-04-26 17:01] LABS: Glucose,Whole Blood 124 mg/dL (75-99)
[2017-04-26] MEDS: WARFARIN 3 MG TAB PO SCH (17:11)
[2017-04-26] MEDS: ASPIRIN 325 MG TAB PO SCH (20:03)
[2017-04-26] MEDS: SODIUM CHLORIDE 0.9% 1,000 ML IV SCH (20:03)
[2017-04-26 21:37] LABS: Glucose,Whole Blood 162 mg/dL (75-99)
--- NOTE | 2017-04-26 21:37 | PN ---
PROGRESS NOTE DATE OF SERVICE: 04/26/2017 This 82-year-old gentleman admitted with shortness of breath, possibly congestive heart failure acute exacerbation. Patient also had pleural effusion on the right and after thoracocentesis last time, the patient had right hydropneumothorax. Patient also had ascites previously. Now the patient also had bilateral leg cellulitis and significant oozing and discharge and other multiple medical problems also. The patient is being closely monitored at this time. According to Dr. Bartlett, the patient had very poor social support and the patient came to Dr. Bartlett's office on multiple occasions. At this time has been consulted. The patient is on broad-spectrum IV antibiotics. PAST MEDICAL HISTORY: Reviewed. REVIEW OF SYSTEMS: Cardiovascular: No angina or palpitations. Respirations: As mentioned earlier. GI as mentioned earlier. no dysuria. Central nervous system: No numbness or weakness. CURRENT MEDICATIONS ARE: Reviewed and include: 1. Tylenol 650 q.6 p.r.n. 2. DuoNeb q.i.d. and p.r.n. 3. Aspirin 81 mg. 4. Kefzol 2 g IV q.8h. 5. Colace 100 mg daily. 6. Lasix. 7. NovoLog. 8. Tradjenta 5 mg. 9. Lopressor 100 mg p.o. b.i.d. 10.Multivitamins. 11.MiraLAX. 12.Coumadin 3 mg p.o. Tuesday, Tuesday, and Tuesday and 4.5 mg other days. PHYSICAL EXAM: Patient is alert, oriented x3. Pulse is 102. Blood pressure 126/62, respiration 16, temperature is normal. Pulse ox 98% on 3 L. HEENT is conjunctivae normal. Oral mucosa moist. Neck is no jugular venous distention. No carotid bruit. No lymph nodes enlargement. Cardiovascular system: S1, S2, no S3, no S4. RESPIRATORY: Breath sounds diminished in the bases. A few scattered rhonchi and crackles. ABDOMEN: Soft, obese, nontender, ascites present. LEGS: Bilateral leg edema and erythema and cellulitis also present. NERVOUS SYSTEM: Higher functions as mentioned earlier. Moves all four extremities. No focal deficits. Lymphatics: No lymph nodes palpable in the neck, axillae or groin. SKIN: No ulcer, rash or bleeding. LAB: WBC 12.1, hgb 11.1, INR is 1.9, sodium 140, potassium 4.2, creatinine 1.33. UA noted. ASSESSMENT: 1. Congestive heart failure acute exacerbation with acute on chronic systolic dysfunction, ejection fraction 40%. 2. Pleural effusion, right more than the left. 3. Ascites. 4. History of thoracocentesis on the right and hydropneumothorax recently. 5. History of atrial fibrillation. 6. History of coronary artery disease. 7. History of diabetes type 2. 8. Hypertension. 9. Hyperlipidemia. 10.Bilateral leg ulcers and venous stasis ulcers. 11.Previous infection with Pseudomonas emesis and group strep Group B. 12.Increased WBC. 13.Increased creatinine with chronic kidney disease stage 3. RECOMMENDATIONS AND DISCUSSION: Recommend to continue current medications, continue with monitoring and symptomatic treatment. Otherwise, at this time, we will monitor the patient closely. I would recommend continue with the current medications. Continue symptomatic treatment. Discussed with Dr. Bartlett at length as mentioned earlier. Also recommend PT/OT evaluation and ECF rehab also. Monitor creatinine closely. The prognosis is guarded because of multiple complex medical issues and further recommendations to follow. See orders for details. Discussed with the patient who understands and agrees. MMODL / IJN: [id number] / LIU
[2017-04-26] MEDS: ACETAMINOPHEN TAB 325 MG TAB PO PRN (22:15)
[2017-04-27] MEDS: FUROSEMIDE 10 MG/ML 4 ML VIAL IV SCH ×3 (03:15→21:54)
[2017-04-27 06:28] LABS: Anisocytosis Slight; Basophils # (A) 0.1 k/uL (0-0.2); Basophils % (A) 1 %; Eosinophils # (A) 0.2 k/uL (0-0.7); Eosinophils % (A) 2 %; HCT 36.5 % (39.0-53.0); HGB 11.4 gm/dL (13.0-17.5); Hypochromasia Slight; Lymphocytes # (A) 0.5 k/uL (1.0-4.8); Lymphocytes % (A) 5 %; MCH 29.8 pg (25.0-35.0); MCHC 31.1 g/dL (31.0-37.0); MCV 95.5 fL (80.0-100.0); Mean Platelet Volume 6.7; Monocytes # (A) 0.7 k/uL (0-1.0); Monocytes % (A) 7 %; Neutrophils # (A) 8.3 k/uL (1.3-7.7); Neutrophils % (A) 84 %; Platelet Count 300 k/uL (150-450); RBC 3.82 m/uL (4.30-5.90); RDW 16.2 % (11.5-15.5); WBC 9.9 k/uL (3.8-10.6)
[2017-04-27 06:32] LABS: INR 2.1 (<1.2)
[2017-04-27] MEDS: INSULIN ASPART 100 UNIT/ML 1 ML 10 ML VIAL SQ SCH ×3 (06:44→16:25)
[2017-04-27 06:52] LABS: Glucose,Whole Blood 104 mg/dL (75-99)
[2017-04-27 06:52] LABS: Anion Gap 9 mmol/L; Blood Urea Nitrogen 49 mg/dL (9-20); Calcium 8.5 mg/dL (8.4-10.2); Carbon Dioxide 35 mmol/L (22-30); Chloride 95 mmol/L (98-107); Glucose 105 mg/dL (74-99); Potassium 3.8 mmol/L (3.5-5.1); Sodium 139 mmol/L (137-145)
--- NOTE | 2017-04-27 07:07 | CONS ---
CONSULTATION DATE OF SERVICE: 04/26/2017 REASON FOR FOLLOWUP: Bilateral lower extremity venous stasis ulcer and cellulitis. HISTORY OF PRESENT ILLNESS: The patient is an 82-year-old, male, well known to my service from previous admission to this facility. The patient has been brought into the ER at [facility] on March with chief complaints of increasing shortness of breath and abdominal distention. The patient's symptoms have been getting worse for the last 2 days prior to presentation to hospital. The patient denies having any cough or sputum production. No fever, no chills. He did have bilateral lower extremity venous stasis ulcer, more marked on the right leg than the left leg area with weeping edema, has currently been treated at the wound care center, however, the patient sure about the exact type of dressing except the Bill wraps. The patient denies having any nausea, vomiting, or any diarrhea. The patient has been admitted to the hospital and has been treated for the underlying condition. ID was consulted for recommendations regarding lower extremity wound and cellulitis. Patient has been complaining of mild pain In both the legs for the last few days intensity about 3-4/10 no radiation with associated swelling and drainage but no fever REVIEW OF SYSTEMS: CONSTITUTIONAL: Positive for weakness. No fever. EYES: No complaint. ENT: No complaint. RESPIRATORY: As per HPI. CARDIOVASCULAR: As per HPI. GENITOURINARY: No complaint. GASTROINTESTINAL: per HPI. MUSCULOSKELETAL: No complaint. INTEGUMENTARY: As per HPI. PSYCHOLOGICAL: No complaint. ENDOCRINE: No complaint. NEUROLOGIC: No complaint. PAST MEDICAL HISTORY: His past medical history is significant for atrial fibrillation, coronary artery disease, heart failure, diabetes mellitus, hypertension, hyperlipidemia, chronic lower extremity venous stasis ulcer and lower extremity cellulitis. PAST SURGICAL HISTORY: Colonoscopy, heart catheterization, right inguinal hernia repair, bilateral cataract surgery and implants. SOCIAL HISTORY: Remote history of smoking. No drinking or any drug use. FAMILY HISTORY: Mother with history of diabetes. Father history of prostate disorder. ALLERGIES: Allergies to CIPROFLOXACIN and STATINS. MEDICATIONS: Medications include the patient is currently on Tylenol, DuoNeb, aspirin, cefazolin, Colace, iron sulfate, Lasix, NovoLog, Tradjenta, Lopressor, Theragran, MiraLAX, Coumadin. PHYSICAL EXAMINATION: On examination, blood pressure is 92/68 with a pulse of 101, temperature of 97. He is 92% on room air. General description is an elderly male up in the chair in no distress. No tachypnea or accessory muscle of respiration use. HEENT examination shows slight pallor. No scleral icterus. Oral mucous membrane is dry. No pharyngeal erythema or thrush NECK: Trachea central, no thyromegaly. LUNGS: Unlabored breathing, decreased breath sounds in the bases. No wheeze or crackle. HEART: S1, S2. Irregular rhythm. No added sounds. ABDOMEN: Soft. No tenderness, slight distention. No guarding or rigidity. Extremities with superficial ulceration with some minimal erythema and clear drainage, no purulence or foul-smelling. NEUROLOGICAL: The patient is awake, alert, oriented x2. Mood and affect normal. LABS: Hemoglobin is 12.1 with white count 5.5. INR is 1.9 with a BUN of 49, creatinine 1.33. His urine has been negative. Chest x-ray with congestive heart failure, effusions slightly worse than last exam. DIAGNOSTIC IMPRESSION AND PLAN: Patient admitted to the hospital with increase in shortness of breath with abdominal distention in a patient who did have a multiple bilateral lower extremity venous stasis ulcer with secondary cellulitis likely streptococcal disease, clinically doubt methicillin-resistant Staphylococcus aureus infection or gram-negative. PLAN: 1. Local wound care to the leg wounds will be with Aquacel Silver should be applied dry followed by an Bill wrap from just above the toe to below the knee. 2. Cefazolin 2 grams q.8 hours. 3. We will follow up on his clinical condition as well as culture to further adjust medication if needed. Thank you for this consultation. Will follow this patient along with you. MMODL / IJN: [id number] / LIU
[2017-04-27] MEDS: FERROUS SULFATE 325 MG TAB PO SCH ×2 (08:12→21:54)
[2017-04-27] MEDS: ASPIRIN 81 MG PO SCH (08:12)
[2017-04-27] MEDS: ceFAZolin IN SWFI 2 GM/20 ML SYRINGE IVP SCH ×2 (08:12→16:12)
[2017-04-27] MEDS: METOPROLOL TARTRATE 50 MG TAB PO SCH ×2 (08:13→21:54)
[2017-04-27] MEDS: MULTIVITAMINS, THERA 1 EACH TAB PO SCH (08:13)
[2017-04-27] MEDS: IPRATROPIUM-ALBUTEROL 3 ML NEB INHALATION SCH ×4 (08:31→19:15)
--- NOTE | 2017-04-27 09:47 | US ---
EXAMINATION TYPE: US abdomen limited DATE OF EXAM: 04/26/2017 COMPARISON: Prior limited abdominal ultrasound March 23, 2017 CLINICAL HISTORY: ascites. Swelling Moderate ascites noted 9 images saved show moderate amount of recurrent ascites in bilateral upper and lower quadrants. IMPRESSION: As above
[2017-04-27 11:27] LABS: Glucose,Whole Blood 127 mg/dL (75-99)
[2017-04-27] MEDS: LINAGLIPTIN 5 MG TABLET PO SCH ×2 (12:00→16:27)
--- NOTE | 2017-04-27 13:51 | P.PN ---
Subjective Progress Note Date: 04/27/17 Principal diagnosis: CHF This is a pleasant 82-year-old gentleman with history of chronic diastolic congestive heart failure, chronic persistent atrial fibrillation, diabetes, hypertension, hyperlipidemia, referral vascular disease, chronic venous stasis, chronic anemia, chronic anasarca, who was at the wound clinic receiving treatment for his chronic venous stasis and ulcers, it was noted that the patient had significant abdominal distention and bilateral lower extremity edema and he was advised to come to the emergency room for further evaluation. Cardiology consultation was requested for congestive cardiac failure. Approximately one month ago, patient states that he did have 8 L of fluid removed from his abdomen at [facility]. KUB of the abdomen performed on admission did not reveal any acute findings, positive pleural effusions. Chest x-ray showed congestive heart failure with pleural effusions, slightly worsened prior chest x-ray. EKG shows atrial fibrillation with a controlled ventricular response. The pressure on arrival here 100/70 with a heart rate in the 90s, 92% on room air. Temperature 90.7. At pressure this morning 114/70, heart rate 118, 92% on 2 L of oxygen. White blood cell count 12.5, hemoglobin 12.1, platelet count 314. INR 1.9, sodium 141, potassium 4.4, BUN 49, creatinine 1.3. BNP level 5170, troponin 0.012. Patient states he slept well through the night last night, around 4:30 was quite short of breath, currently sitting up in the chair at bedside. 04/27/2017 Patient was seen and examined this morning, continues to be on IV Lasix. Weight is unchanged today. Sodium 139, potassium 3.8, BUN 49, creatinine 1.3. In are today is 2.1. Echocardiogram with Doppler study was performed which revealed an ejection fraction of 50-55%. Continues to be on IV Lasix. He is somewhat improved today. Ultrasound of the abdomen was performed which revealed moderate ascites in bilateral upper and lower quadrants. Objective - Vital Signs Vital signs: Vital Signs Temp 96.6 F L 04/27/17 08:00 Pulse 86 04/27/17 13:34 Resp 16 04/27/17 08:00 BP 93/65 04/27/17 08:00 Pulse Ox 100 04/27/17 08:00 Intake & Output 04/26/17 04/27/17 04/27/17 18:59 06:59 18:59 Intake Total 956 480 240 Output Total 800 Balance 156 480 240 Weight 105.4 kg 105.9 kg Intake: Oral 956 480 240 Output: Urine 800 Other: Voiding Method Toilet Toilet # Voids 4 - Exam PHYSICAL EXAMINATION: HEENT: Head is atraumatic, normocephalic. Pupils equal, round. Neck is supple. There is elevated jugular venous pressure. HEART EXAMINATION: Heart S1 and S2 irregularly irregular a systolic murmur is heard. CHEST EXAMINATION: Lungs reveal scattered coarse rhonchi throughout with diminished air entry to the bases. ABDOMEN: Obese, firm and distended . Bowel sounds are heard. No organomegaly noted. EXTREMITIES: 1+ peripheral pulses with 2+ evidence of peripheral edema , evidence of chronic venous stasis and ulcerations. NEUROLOGIC patient is awake, alert and oriented -3. . - Labs CBC & Chem 7: 04/27/17 05:49 04/27/17 05:49 Labs: Abnormal Lab Results - Last 24 Hours (Table) 04/26/17 04/26/17 04/26/17 Range/Units 06:09 17:00 21:12 RBC (4.30-5.90) m/uL Hgb (13.0-17.5) gm/dL Hct (39.0-53.0) % RDW (11.5-15.5) % Neutrophils # (1.3-7.7) k/uL Lymphocytes # (1.0-4.8) k/uL PT (9.0-12.0) sec INR (<1.2) Chloride (98-107) mmol/L Carbon Dioxide (22-30) mmol/L BUN (9-20) mg/dL Creatinine (0.66-1.25) mg/dL Glucose (74-99) mg/dL POC Glucose (mg/dL) 124 H 162 H (75-99) mg/dL Hemoglobin A1c 6.8 H (4.0-6.0) % 04/27/17 04/27/17 04/27/17 Range/Units 05:49 05:49 05:49 RBC 3.82 L (4.30-5.90) m/uL Hgb 11.4 L (13.0-17.5) gm/dL Hct 36.5 L (39.0-53.0) % RDW 16.2 H (11.5-15.5) % Neutrophils # 8.3 H (1.3-7.7) k/uL Lymphocytes # 0.5 L (1.0-4.8) k/uL PT 19.0 H (9.0-12.0) sec INR 2.1 H (<1.2) Chloride 95 L (98-107) mmol/L Carbon Dioxide 35 H (22-30) mmol/L BUN 49 H (9-20) mg/dL Creatinine 1.30 H (0.66-1.25) mg/dL Glucose 105 H (74-99) mg/dL POC Glucose (mg/dL) (75-99) mg/dL Hemoglobin A1c (4.0-6.0) % 04/27/17 04/27/17 Range/Units 06:38 11:25 RBC (4.30-5.90) m/uL Hgb (13.0-17.5) gm/dL Hct (39.0-53.0) % RDW (11.5-15.5) % Neutrophils # (1.3-7.7) k/uL Lymphocytes # (1.0-4.8) k/uL PT (9.0-12.0) sec INR (<1.2) Chloride (98-107) mmol/L Carbon Dioxide (22-30) mmol/L BUN (9-20) mg/dL Creatinine (0.66-1.25) mg/dL Glucose (74-99) mg/dL POC Glucose (mg/dL) 104 H 127 H (75-99) mg/dL Hemoglobin A1c (4.0-6.0) % Assessment and Plan Plan: Assessment and plan #1 diastolic congestive heart failure acute on chronic, patient patient did have an echocardiogram with Doppler study performed in January which revealed an ejection fraction of 40-45%, mild MR and mild to moderate TR. #2 chronic persistent atrial fibrillation #3 hypertension #4 hyperlipidemia #5 severe peripheral vascular disease #6 chronic anasarca #7 chronic anemia Plan Echocardiogram with Doppler study was repeated which revealed an ejection fraction of 50-55%. Contine current dose of IV Lasix for 24 hours. Check lytes BUN and creatinine in the morning. We will also repeat a chest x-ray in the morning. DNP note has been reviewed, I agree with a documented findings and plan of care. Patient was seen and examined.
--- NOTE | 2017-04-27 16:03 | P.PN ---
<Keila Quezada M - Last Filed: 04/27/17 15:52> Subjective Progress Note Date: 04/27/17 Principal diagnosis: CHF exacerbation, bilateral pleural effusions, right more than left and secondary shortness of breath. Pleasant 82-year-old male patient who was sent over to the hospital from the primary care physician due to increased shortness of breath and signs of fluid overload. The patient is known to me not taking care of him in the past. In fact we haven't drained this patient's right lung so a thoracentesis and the fluid was a transudate consistent with CHF. He is known to have CHF with diastolic dysfunction, chronic atrial fibrillation, chronic lower extremities edema and venous stasis in lower extremities bilaterally in addition to hypertension, hyperlipidemia and peripheral vascular disease. The patient also suffers from chronic renal failure and his current creatinine is around 1.3. The patient is or the be started on diuretics. He is on IV Lasix for now. Is producing adequate amount of urine output. No chest pain. No angina. No cough or sputum production. No pleurisy. Chest x-ray findings are essentially the same compared to the previous chest x-ray that was done approximately a month ago. There is a moderate-sized right-sided pleural effusion and a small left-sided pleural effusion along with that there is increased pulmonary vascular markings. The patient has a normal troponin. ProBNP level is slightly elevated at 5170. On 04/27/2017 patient seen in follow-up on selective care floor. He reports modest improvements in his respiratory status, states his breathing is not much improved since admission. Still becomes very dyspneic on exertion. No acute distress at rest, remains on 3 L per nasal cannula at 90-94 and 100%. He is afebrile, hemodynamically stable, lung sounds are diminished, more so over right lower base. No rhonchi, no rales, wheezes auscultated. He's being diuresed on IV Lasix 40 mg every 8 hours. Fluid status is hard to estimate, patient is voiding on the toilet. Bilateral lower extremities cellulitis persists, bilateral lower extremities remained red and swollen and weepy, local wound care with wrapping is being done. Objective - Vital Signs Vital signs: Vital Signs Temp 96.6 F L 04/27/17 08:00 Pulse 86 04/27/17 13:34 Resp 16 04/27/17 12:00 BP 93/65 04/27/17 08:00 Pulse Ox 100 04/27/17 08:00 Intake & Output 04/26/17 04/27/17 04/27/17 18:59 06:59 18:59 Intake Total 956 480 480 Output Total 800 Balance 156 480 480 Weight 105.4 kg 105.9 kg Intake: Oral 956 480 480 Output: Urine 800 Other: Voiding Method Toilet Toilet # Voids 4 2 - Exam GENERAL EXAM: Alert, active, comfortable in no apparent distress. The patient on acute ST or distress. He is awake and alert. HEAD: Normocephalic. EYES: Normal reaction of pupils, equal size. NOSE: Clear with pink turbinates. THROAT: No erythema or exudates. NECK: No masses, there is positive JVDs, and there is also significant crowding of the posterior oropharynx. CHEST: No chest wall deformity. LUNGS: Lung sounds are generally diminished, equal air entry with no wheeze, rhonchi, dullness to percussion at the bases. CVS: S1 and S2 normal with no audible murmurs, irregular rhythm. ABDOMEN: No hepatosplenomegaly, normal bowel sounds, no guarding or rigidity. Extremities: There is discoloration of lower extremity secondary to chronic venous stasis ulceration throughout the lower extremities bilaterally extending between the ankles and the knees.. Dressings are clean and dry. There remains one to 2+ peripheral edema. No clubbing, no cyanosis. Peripheral pulses are intact. Neurologically the patient is awake and alert and moving all flex images without any limitation. His OA 3 - Labs CBC & Chem 7: 04/27/17 05:49 04/27/17 05:49 Labs: Abnormal Lab Results - Last 24 Hours (Table) 04/26/17 04/26/17 04/26/17 Range/Units 06:09 17:00 21:12 RBC (4.30-5.90) m/uL Hgb (13.0-17.5) gm/dL Hct (39.0-53.0) % RDW (11.5-15.5) % Neutrophils # (1.3-7.7) k/uL Lymphocytes # (1.0-4.8) k/uL PT (9.0-12.0) sec INR (<1.2) Chloride (98-107) mmol/L Carbon Dioxide (22-30) mmol/L BUN (9-20) mg/dL Creatinine (0.66-1.25) mg/dL Glucose (74-99) mg/dL POC Glucose (mg/dL) 124 H 162 H (75-99) mg/dL Hemoglobin A1c 6.8 H (4.0-6.0) % 04/27/17 04/27/17 04/27/17 Range/Units 05:49 05:49 05:49 RBC 3.82 L (4.30-5.90) m/uL Hgb 11.4 L (13.0-17.5) gm/dL Hct 36.5 L (39.0-53.0) % RDW 16.2 H (11.5-15.5) % Neutrophils # 8.3 H (1.3-7.7) k/uL Lymphocytes # 0.5 L (1.0-4.8) k/uL PT 19.0 H (9.0-12.0) sec INR 2.1 H (<1.2) Chloride 95 L (98-107) mmol/L Carbon Dioxide 35 H (22-30) mmol/L BUN 49 H (9-20) mg/dL Creatinine 1.30 H (0.66-1.25) mg/dL Glucose 105 H (74-99) mg/dL POC Glucose (mg/dL) (75-99) mg/dL Hemoglobin A1c (4.0-6.0) % 04/27/17 04/27/17 Range/Units 06:38 11:25 RBC (4.30-5.90) m/uL Hgb (13.0-17.5) gm/dL Hct (39.0-53.0) % RDW (11.5-15.5) % Neutrophils # (1.3-7.7) k/uL Lymphocytes # (1.0-4.8) k/uL PT (9.0-12.0) sec INR (<1.2) Chloride (98-107) mmol/L Carbon Dioxide (22-30) mmol/L BUN (9-20) mg/dL Creatinine (0.66-1.25) mg/dL Glucose (74-99) mg/dL POC Glucose (mg/dL) 104 H 127 H (75-99) mg/dL Hemoglobin A1c (4.0-6.0) % Assessment and Plan Plan: Assessment 1 CHF exacerbation with development of bilateral pleural effusion right more than left and secondary shortness of breath. The patient had a thoracentesis of the right lung in February 2017 and a total of 1 L of pleural fluid was aspirated and the fluid was transudate with LDH and protein consistent with CHF. Furthermore, the fluid cytology was negative for malignancy. 2 chronic lower extremity edema and chronic venous ulceration, superficial ulceration with recurrent cellulitis involving the lower extremities. Previous cultures have shown pseudomonas aeruginosa, Enterococcus faecalis and MSSA 3 chronic atrial fibrillation with a subtherapeutic PT/INR maintained on long- term anticoagulation 4 obesity 5 peripheral vascular disease 6 diabetes mellitus 7 hypertension 8 hyperlipidemia 9 chronic renal failure, creatinine stable at 1.3 10 coronary artery disease 11 chronic hypotension 12 chronic anemia 13 history of ascites status post drainage of 6 L of abdominal fluid in February 2017 14 large umbilical hernia, patient to medical this point 15 impaired hearing 16 chronic anasarca Plan Continue medical treatment, continue diuresis. No need for thoracentesis as long as the pleural effusion is stable compared to the previous chest x-rays and the patient denies having any worsening shortness of breath. Continue together ventilation with warfarin to achieve an INR between 2 and 3. Echocardiogram From 04/26/2016 has been reviewed, shows EF of 50-55%. Local wound care to bilateral lower leg cellulitis, continue Kefzol. I performed a history & physical examination of the patient and discussed their management with my nurse practitioner, Keila Quezada. I reviewed the nurse practitioner's note and agree with the documented findings and plan of care. Lung sounds are diminished. The findings and the impression was discussed with the patient. I attest to the documentation by the nurse practitioner. Time with Patient: Less than 30 <Tammy Lyman - Last Filed: 04/27/17 16:14> Objective - Vital Signs Vital signs: Vital Signs Temp 96.6 F L 04/27/17 08:00 Pulse 86 04/27/17 13:34 Resp 16 04/27/17 12:00 BP 93/65 04/27/17 08:00 Pulse Ox 100 04/27/17 08:00 Intake & Output 01/06/1204/27/17 04/27/17 18:59 06:59 18:59 Intake Total 956 480 480 Output Total 800 Balance 156 480 480 Weight 105.4 kg 105.9 kg Intake: Oral 956 480 480 Output: Urine 800 Other: Voiding Method Toilet Toilet # Voids 4 2 - Labs CBC & Chem 7: 04/27/17 05:49 04/27/17 05:49 Labs: Abnormal Lab Results - Last 24 Hours (Table) 04/26/17 04/26/17 04/26/17 Range/Units 06:09 17:00 21:12 RBC (4.30-5.90) m/uL Hgb (13.0-17.5) gm/dL Hct (39.0-53.0) % RDW (11.5-15.5) % Neutrophils # (1.3-7.7) k/uL Lymphocytes # (1.0-4.8) k/uL PT (9.0-12.0) sec INR (<1.2) Chloride (98-107) mmol/L Carbon Dioxide (22-30) mmol/L BUN (9-20) mg/dL Creatinine (0.66-1.25) mg/dL Glucose (74-99) mg/dL POC Glucose (mg/dL) 124 H 162 H (75-99) mg/dL Hemoglobin A1c 6.8 H (4.0-6.0) % 04/27/17 04/27/17 04/27/17 Range/Units 05:49 05:49 05:49 RBC 3.82 L (4.30-5.90) m/uL Hgb 11.4 L (13.0-17.5) gm/dL Hct 36.5 L (39.0-53.0) % RDW 16.2 H (11.5-15.5) % Neutrophils # 8.3 H (1.3-7.7) k/uL Lymphocytes # 0.5 L (1.0-4.8) k/uL PT 19.0 H (9.0-12.0) sec INR 2.1 H (<1.2) Chloride 95 L (98-107) mmol/L Carbon Dioxide 35 H (22-30) mmol/L BUN 49 H (9-20) mg/dL Creatinine 1.30 H (0.66-1.25) mg/dL Glucose 105 H (74-99) mg/dL POC Glucose (mg/dL) (75-99) mg/dL Hemoglobin A1c (4.0-6.0) % 04/27/17 04/27/17 Range/Units 06:38 11:25 RBC (4.30-5.90) m/uL Hgb (13.0-17.5) gm/dL Hct (39.0-53.0) % RDW (11.5-15.5) % Neutrophils # (1.3-7.7) k/uL Lymphocytes # (1.0-4.8) k/uL PT (9.0-12.0) sec INR (<1.2) Chloride (98-107) mmol/L Carbon Dioxide (22-30) mmol/L BUN (9-20) mg/dL Creatinine (0.66-1.25) mg/dL Glucose (74-99) mg/dL POC Glucose (mg/dL) 104 H 127 H (75-99) mg/dL Hemoglobin A1c (4.0-6.0) % Assessment and Plan Plan: This is a joint evaluation that was done along with a nurse practitioner. The patient is being diuresis with IV Lasix. The patient is doing well. He was also seen by a infectious disease regarding his lower extremity wounds. Local wound care is being done. The patient has no specific complaints. Function remains stable with a creatinine of 1.3. We'll continue to follow. I attest to the above-mentioned information.
[2017-04-27] MEDS: WARFARIN 3 MG TAB PO SCH (16:12)
[2017-04-27] MEDS: POLYETHYLENE GLYCOL 3350 17 GM POWD.PACK PO PRN (16:19)
[2017-04-27 16:27] LABS: Glucose,Whole Blood 180 mg/dL (75-99)
--- NOTE | 2017-04-27 16:47 | P.PN ---
Subjective Progress Note Date: 04/27/17 Progress note being dictated for Dr. Irvin. Interval history: This 82-year-old gentleman admitted with acute CHF exacerbation, pleural effusions, ascites and multiple other medical issues. Diuresing on Lasix IV push, improving. Reports exertional dyspnea. EF 50-55% abdominal ultrasound reporting moderate amount recurrent ascites. Anticoagulated on Coumadin with current INR 2.1. Maintained on Kefzol as per ID. Denies chest pain, palpitations. Objective - Vital Signs Vital signs: Vital Signs Temp 96.6 F L 04/27/17 08:00 Pulse 86 04/27/17 13:34 Resp 16 04/27/17 12:00 BP 93/65 04/27/17 08:00 Pulse Ox 100 04/27/17 08:00 Intake & Output 04/26/17 04/27/17 04/27/17 18:59 06:59 18:59 Intake Total 956 480 480 Output Total 800 Balance 156 480 480 Weight 105.4 kg 105.9 kg Intake: Oral 956 480 480 Output: Urine 800 Other: Voiding Method Toilet Toilet # Voids 4 2 - Exam PHYSICAL EXAM: VITAL SIGNS: As above GENERAL: Sitting up in bed, no acute distress HEENT: Conjunctivae normal. eyes normal. Oral mucosa moist NECK: No JVD. No thyroid enlargement. No LNs CARDIOVASCULAR: S1, S2 muffled. Irregular, systolic murmur RESPIRATION: Breath sounds diminished in the bases. No rhonchi, no crackles. No wheezing. No bronchial breathing. ABDOMEN: Soft, nontender . No guarding. no masses palpable. Positive ascites, Bowel sounds heard. No rigidity LEGS: Bilateral leg edema, erythema, celllulitis present. Discoloration secondary to chronic venous stasis ulceration. Dressings clean dry and intact PSYCHIATRY: Alert and oriented -3, mood and affect normal. NERVOUS SYSTEM: Cranial N 2-12 grossly normal. Moves all 4 limbs. Diffuse weakness No focal deficits. No sensory deficit. Lymphatic system. No LN neck axilla or groin. - Labs CBC & Chem 7: 04/27/17 05:49 04/27/17 05:49 Labs: Abnormal Lab Results - Last 24 Hours (Table) 04/26/17 04/26/17 04/26/17 Range/Units 06:09 17:00 21:12 RBC (4.30-5.90) m/uL Hgb (13.0-17.5) gm/dL Hct (39.0-53.0) % RDW (11.5-15.5) % Neutrophils # (1.3-7.7) k/uL Lymphocytes # (1.0-4.8) k/uL PT (9.0-12.0) sec INR (<1.2) Chloride (98-107) mmol/L Carbon Dioxide (22-30) mmol/L BUN (9-20) mg/dL Creatinine (0.66-1.25) mg/dL Glucose (74-99) mg/dL POC Glucose (mg/dL) 124 H 162 H (75-99) mg/dL Hemoglobin A1c 6.8 H (4.0-6.0) % 04/27/17 04/27/17 04/27/17 Range/Units 05:49 05:49 05:49 RBC 3.82 L (4.30-5.90) m/uL Hgb 11.4 L (13.0-17.5) gm/dL Hct 36.5 L (39.0-53.0) % RDW 16.2 H (11.5-15.5) % Neutrophils # 8.3 H (1.3-7.7) k/uL Lymphocytes # 0.5 L (1.0-4.8) k/uL PT 19.0 H (9.0-12.0) sec INR 2.1 H (<1.2) Chloride 95 L (98-107) mmol/L Carbon Dioxide 35 H (22-30) mmol/L BUN 49 H (9-20) mg/dL Creatinine 1.30 H (0.66-1.25) mg/dL Glucose 105 H (74-99) mg/dL POC Glucose (mg/dL) (75-99) mg/dL Hemoglobin A1c (4.0-6.0) % 04/27/17 04/27/17 Range/Units 06:38 11:25 RBC (4.30-5.90) m/uL Hgb (13.0-17.5) gm/dL Hct (39.0-53.0) % RDW (11.5-15.5) % Neutrophils # (1.3-7.7) k/uL Lymphocytes # (1.0-4.8) k/uL PT (9.0-12.0) sec INR (<1.2) Chloride (98-107) mmol/L Carbon Dioxide (22-30) mmol/L BUN (9-20) mg/dL Creatinine (0.66-1.25) mg/dL Glucose (74-99) mg/dL POC Glucose (mg/dL) 104 H 127 H (75-99) mg/dL Hemoglobin A1c (4.0-6.0) % Assessment and Plan Assessment: 1. Acute on chronic congestive heart failure exacerbation, systolic dysfunction , EF 40% 2. Pleural effusion, right greater than left 3. Ascites, last paracentesis February 2017, 6 L 4. Recent right-sided thoracentesis and hydropneumothorax 5. CAD 6. Chronic persistent atrial fibrillation 7. Severe peripheral vascular disease with Bilateral leg venous stasis ulcers 8. Previous infection with Pseudomonas/group strep B 9. Acute on chronic renal failure, stage III Plan: Continue on current medication regime , kefzol, Coumadin, monitoring and symptomatic treatment. Maintain IV Lasix for another 24 hours as per cardiology. No thoracentesis at this time as per pulmonary. Evaluated by PT with home care recommended at discharge. The impression and plan of care has been dictated as directed. : I performed a history and examination of this patient, discussed the same with the dictator. I agree with the dictator's note ,documented as a scribe. Any additional findings or plans will be noted.
--- NOTE | 2017-04-27 21:02 | XR ---
EXAMINATION TYPE: XR chest 2V DATE OF EXAM: 04/27/2017 COMPARISON: 04/24/2017 HISTORY: Heart failure. Short of breath TECHNIQUE: Frontal and lateral views of the chest are obtained. FINDINGS: There is pulmonary vascular congestion. There are bilateral moderate pleural effusions. He art is probably enlarged. Bony thorax is intact. There are chest leads. IMPRESSION: Congestive heart failure with pleural effusions. Pleural fluid is increased compared to last exam.
[2017-04-27 21:27] LABS: Glucose,Whole Blood 168 mg/dL (75-99)
[2017-04-27] MEDS: SODIUM CHLORIDE 0.9% 1,000 ML IV SCH (21:54)
--- NOTE | 2017-04-27 22:47 | PN ---
PROGRESS NOTE DATE OF SERVICE: 04/27/2017 REASON FOR FOLLOWUP: Mild left lower extremity venostasis ulcer and cellulitis. INTERVAL HISTORY: The patient is afebrile, breathing comfortably. Denies significant chest pain. Some abdominal distention. Denies any pain in the leg. No nausea, vomiting or diarrhea. PHYSICAL EXAMINATION: Blood pressure 99/69 with a pulse of 84, temperature of 98. He is 98% on 2 L nasal cannula. General description is an elderly male up in the chair in no distress. RESPIRATORY SYSTEM: Unlabored breathing. Decreased because of the base HEART: S1, S2. Regular rate and rhythm. LEGS: Currently wrapped up in the Bill wrap and dressing with some drainage of the dressing DIAGNOSTIC IMPRESSION AND PLAN: Patient with lower extremity venostasis ulcer with cellulitis of the legs are currently wrapped to keep the swelling down. Antibiotics in the form of cefazolin. Continue with supportive care. MMODL / IJN: [id number] / MTDD
[2017-04-27 23:06] VITALS: BMI 33.3
[2017-04-28] MEDS: ceFAZolin IN SWFI 2 GM/20 ML SYRINGE IVP SCH ×4 (00:11→20:49)
[2017-04-28] MEDS: INSULIN ASPART 100 UNIT/ML 1 ML 10 ML VIAL SQ SCH ×5 (00:11→21:00)
[2017-04-28] MEDS: FUROSEMIDE 10 MG/ML 4 ML VIAL IV SCH ×3 (05:00→20:48)
[2017-04-28 07:09] LABS: Anisocytosis Slight; Basophils # (A) 0.1 k/uL (0-0.2); Basophils % (A) 1 %; Eosinophils # (A) 0.2 k/uL (0-0.7); Eosinophils % (A) 2 %; HCT 37.8 % (39.0-53.0); HGB 11.5 gm/dL (13.0-17.5); Hypochromasia Slight; Lymphocytes # (A) 0.5 k/uL (1.0-4.8); Lymphocytes % (A) 4 %; MCH 29.2 pg (25.0-35.0); MCHC 30.3 g/dL (31.0-37.0); MCV 96.3 fL (80.0-100.0); Mean Platelet Volume 7.2; Monocytes # (A) 0.7 k/uL (0-1.0); Monocytes % (A) 7 %; Neutrophils % (A) 85 %; Platelet Count 311 k/uL (150-450); RBC 3.93 m/uL (4.30-5.90); RDW 16.2 % (11.5-15.5); WBC 10.6 k/uL (3.8-10.6)
[2017-04-28 07:12] LABS: Glucose,Whole Blood 109 mg/dL (75-99)
[2017-04-28 07:18] LABS: Prothrombin Time 18.3 sec (9.0-12.0)
[2017-04-28 07:22] LABS: Blood Urea Nitrogen 49 mg/dL (9-20); Calcium 8.8 mg/dL (8.4-10.2); Chloride 93 mmol/L (98-107); Glucose 119 mg/dL (74-99); Potassium 4.1 mmol/L (3.5-5.1); Sodium 141 mmol/L (137-145)
[2017-04-28 07:28] LABS: Anion Gap 6 mmol/L
[2017-04-28 07:34] LABS: Carbon Dioxide 42 mmol/L (22-30)
[2017-04-28] MEDS: IPRATROPIUM-ALBUTEROL 3 ML NEB INHALATION SCH ×4 (08:09→21:13)
[2017-04-28] MEDS: METOPROLOL TARTRATE 50 MG TAB PO SCH ×2 (11:14→20:49)
[2017-04-28] MEDS: LINAGLIPTIN 5 MG TABLET PO SCH (11:14)
[2017-04-28] MEDS: MULTIVITAMINS, THERA 1 EACH TAB PO SCH (11:15)
[2017-04-28] MEDS: FERROUS SULFATE 325 MG TAB PO SCH ×2 (11:15→20:49)
[2017-04-28] MEDS: ASPIRIN 81 MG PO SCH (11:15)
[2017-04-28 11:46] LABS: Glucose,Whole Blood 150 mg/dL (75-99)
--- NOTE | 2017-04-28 12:49 | P.PN ---
Subjective Progress Note Date: 04/28/17 Principal diagnosis: CHF This is a pleasant 82-year-old gentleman with history of chronic diastolic congestive heart failure, chronic persistent atrial fibrillation, diabetes, hypertension, hyperlipidemia, referral vascular disease, chronic venous stasis, chronic anemia, chronic anasarca, who was at the wound clinic receiving treatment for his chronic venous stasis and ulcers, it was noted that the patient had significant abdominal distention and bilateral lower extremity edema and he was advised to come to the emergency room for further evaluation. Cardiology consultation was requested for congestive cardiac failure. Approximately one month ago, patient states that he did have 8 L of fluid removed from his abdomen at [facility]. KUB of the abdomen performed on admission did not reveal any acute findings, positive pleural effusions. Chest x-ray showed congestive heart failure with pleural effusions, slightly worsened prior chest x-ray. EKG shows atrial fibrillation with a controlled ventricular response. The pressure on arrival here 100/70 with a heart rate in the 90s, 92% on room air. Temperature 90.7. At pressure this morning 114/70, heart rate 118, 92% on 2 L of oxygen. White blood cell count 12.5, hemoglobin 12.1, platelet count 314. INR 1.9, sodium 141, potassium 4.4, BUN 49, creatinine 1.3. BNP level 5170, troponin 0.012. Patient states he slept well through the night last night, around 4:30 was quite short of breath, currently sitting up in the chair at bedside. 04/27/2017 Patient was seen and examined this morning, continues to be on IV Lasix. Weight is unchanged today. Sodium 139, potassium 3.8, BUN 49, creatinine 1.3. In are today is 2.1. Echocardiogram with Doppler study was performed which revealed an ejection fraction of 50-55%. Continues to be on IV Lasix. He is somewhat improved today. Ultrasound of the abdomen was performed which revealed moderate ascites in bilateral upper and lower quadrants. 04/28/2017 Patient seen and examined this morning, sitting up in the chair, feeling better today. Continues to cough up small amounts of yellow sputum. Blood pressure 92 /56, heart rate in the 90s to low 100s, 96% on 2 L of oxygen. Hemoglobin 11.5, INR 2.0, potassium 4.1, BUN 49, creatinine 1.2. Continues to be on IV Lasix. Objective - Vital Signs Vital signs: Vital Signs Temp 97.8 F 04/28/17 08:00 Pulse 84 04/28/17 11:53 Resp 18 04/28/17 08:00 BP 92/56 04/28/17 08:00 Pulse Ox 96 04/28/17 08:00 Intake & Output 04/27/17 04/28/17 04/28/17 18:59 06:59 18:59 Intake Total 720 760 Balance 720 760 Weight 107 kg Intake: Oral 720 760 Other: Voiding Method Toilet Toilet # Voids 2 0 2 - Exam PHYSICAL EXAMINATION: HEENT: Head is atraumatic, normocephalic. Pupils equal, round. Neck is supple. There is elevated jugular venous pressure. HEART EXAMINATION: Heart S1 and S2 irregularly irregular a systolic murmur is heard. CHEST EXAMINATION: Lungs reveal scattered coarse rhonchi throughout with diminished air entry to the bases. ABDOMEN: Obese, firm and distended . Bowel sounds are heard. No organomegaly noted. EXTREMITIES: 1+ peripheral pulses with 2+ evidence of peripheral edema , evidence of chronic venous stasis and ulcerations. NEUROLOGIC patient is awake, alert and oriented -3. . - Labs CBC & Chem 7: 04/28/17 06:44 04/28/17 06:44 Labs: Abnormal Lab Results - Last 24 Hours (Table) 04/27/17 04/27/17 04/28/17 Range/Units 16:23 21:05 06:44 RBC 3.93 L (4.30-5.90) m/uL Hgb 11.5 L (13.0-17.5) gm/dL Hct 37.8 L (39.0-53.0) % MCHC 30.3 L (31.0-37.0) g/dL RDW 16.2 H (11.5-15.5) % Neutrophils # 9.0 H (1.3-7.7) k/uL Lymphocytes # 0.5 L (1.0-4.8) k/uL PT (9.0-12.0) sec INR (<1.2) Chloride (98-107) mmol/L Carbon Dioxide (22-30) mmol/L BUN (9-20) mg/dL Creatinine (0.66-1.25) mg/dL Glucose (74-99) mg/dL POC Glucose (mg/dL) 180 H 168 H (75-99) mg/dL 04/28/17 04/28/17 04/28/17 Range/Units 06:44 06:44 06:53 RBC (4.30-5.90) m/uL Hgb (13.0-17.5) gm/dL Hct (39.0-53.0) % MCHC (31.0-37.0) g/dL RDW (11.5-15.5) % Neutrophils # (1.3-7.7) k/uL Lymphocytes # (1.0-4.8) k/uL PT 18.3 H (9.0-12.0) sec INR 2.0 H (<1.2) Chloride 93 L (98-107) mmol/L Carbon Dioxide 42 H* (22-30) mmol/L BUN 49 H (9-20) mg/dL Creatinine 1.29 H (0.66-1.25) mg/dL Glucose 119 H (74-99) mg/dL POC Glucose (mg/dL) 109 H (75-99) mg/dL 04/28/17 Range/Units 11:30 RBC (4.30-5.90) m/uL Hgb (13.0-17.5) gm/dL Hct (39.0-53.0) % MCHC (31.0-37.0) g/dL RDW (11.5-15.5) % Neutrophils # (1.3-7.7) k/uL Lymphocytes # (1.0-4.8) k/uL PT (9.0-12.0) sec INR (<1.2) Chloride (98-107) mmol/L Carbon Dioxide (22-30) mmol/L BUN (9-20) mg/dL Creatinine (0.66-1.25) mg/dL Glucose (74-99) mg/dL POC Glucose (mg/dL) 150 H (75-99) mg/dL Microbiology - Last 24 Hours (Table) 04/27/17 19:07 Gram Stain - Preliminary Leg - Left Wound Culture - Preliminary Assessment and Plan Plan: Assessment and plan #1 diastolic congestive heart failure acute on chronic, patient patient did have an echocardiogram with Doppler study performed in January which revealed an ejection fraction of 40-45%, mild MR and mild to moderate TR. #2 chronic persistent atrial fibrillation #3 hypertension #4 hyperlipidemia #5 severe peripheral vascular disease #6 chronic anasarca #7 chronic anemia Plan Echocardiogram with Doppler study was repeated which revealed an ejection fraction of 50-55%. Contine current dose of IV Lasix for 24 hours. Check lytes BUN and creatinine in the morning. Repeat chest x-ray did show congestive heart failure with pleural effusions. Pleural fluid increased as compared with last exam. DNP note has been reviewed, I agree with a documented findings and plan of care. Patient was seen and examined.
--- NOTE | 2017-04-28 14:02 | P.PN ---
<Keila Quezada M - Last Filed: 04/28/17 13:54> Subjective Progress Note Date: 04/28/17 Principal diagnosis: CHF exacerbation, bilateral pleural effusions, right more than left and secondary shortness of breath. Pleasant 82-year-old male patient who was sent over to the hospital from the primary care physician due to increased shortness of breath and signs of fluid overload. The patient is known to me not taking care of him in the past. In fact we haven't drained this patient's right lung so a thoracentesis and the fluid was a transudate consistent with CHF. He is known to have CHF with diastolic dysfunction, chronic atrial fibrillation, chronic lower extremities edema and venous stasis in lower extremities bilaterally in addition to hypertension, hyperlipidemia and peripheral vascular disease. The patient also suffers from chronic renal failure and his current creatinine is around 1.3. The patient is or the be started on diuretics. He is on IV Lasix for now. Is producing adequate amount of urine output. No chest pain. No angina. No cough or sputum production. No pleurisy. Chest x-ray findings are essentially the same compared to the previous chest x-ray that was done approximately a month ago. There is a moderate-sized right-sided pleural effusion and a small left-sided pleural effusion along with that there is increased pulmonary vascular markings. The patient has a normal troponin. ProBNP level is slightly elevated at 5170. On 04/27/2017 patient seen in follow-up on selective care floor. He reports modest improvements in his respiratory status, states his breathing is not much improved since admission. Still becomes very dyspneic on exertion. No acute distress at rest, remains on 3 L per nasal cannula at 90-94 and 100%. He is afebrile, hemodynamically stable, lung sounds are diminished, more so over right lower base. No rhonchi, no rales, wheezes auscultated. He's being diuresed on IV Lasix 40 mg every 8 hours. Fluid status is hard to estimate, patient is voiding on the toilet. Bilateral lower extremities cellulitis persists, bilateral lower extremities remained red and swollen and weepy, local wound care with wrapping is being done. On 04/28/2017 patient seen in follow-up. Vital signs are stable, patient is afebrile, currently on 2 L per nasal cannula, with O2 sat 96%. Lung sounds are diminished, more so on the right side. No rhonchi, no wheezes auscultated. He continues with diuresis on Lasix 40 mg every 8 hours, his weight is actually up today 1.1 kg, his net fluid balance is hard to estimate, because the patient is voiding on the toilet, and at times misses the toilet. His renal function remains stable, despite the diuresis. He denies any worsening dyspnea. Echocardiogram with Doppler was performed and showed an ejection fraction of 50- 55%. Ultrasound of the abdomen showed moderate ascites in bilateral upper and lower quadrants. Chest x-ray from 04/27/2017 was reviewed and shows congestive heart failure with pleural effusions. Left leg wound Gram stain showed few polymorphonuclear leukocytes, but no organisms were seen, aerobic wound culture is in progress. ID service is following. Patient continues on For the Bilateral Lower Leg Cellulitis. Objective - Vital Signs Vital signs: Vital Signs Temp 97.8 F 04/28/17 08:00 Pulse 84 04/28/17 11:53 Resp 18 04/28/17 08:00 BP 92/56 04/28/17 08:00 Pulse Ox 96 04/28/17 08:00 Intake & Output 04/27/17 04/28/17 04/28/17 18:59 06:59 18:59 Intake Total 720 760 Balance 720 760 Weight 107 kg Intake: Oral 720 760 Other: Voiding Method Toilet Toilet # Voids 2 0 2 - Exam GENERAL EXAM: Alert, active, comfortable in no apparent distress. The patient on acute ST or distress. He is awake and alert. HEAD: Normocephalic. EYES: Normal reaction of pupils, equal size. NOSE: Clear with pink turbinates. THROAT: No erythema or exudates. NECK: No masses, there is positive JVDs, and there is also significant crowding of the posterior oropharynx. CHEST: No chest wall deformity. LUNGS: Lung sounds are generally diminished, equal air entry with no wheeze, rhonchi, dullness to percussion at the bases. CVS: S1 and S2 normal with no audible murmurs, irregular rhythm. ABDOMEN: No hepatosplenomegaly, normal bowel sounds, no guarding or rigidity. Extremities: There is discoloration of lower extremity secondary to chronic venous stasis ulceration throughout the lower extremities bilaterally extending between the ankles and the knees.. Dressings are clean and dry. There remains one to 2+ peripheral edema. No clubbing, no cyanosis. Peripheral pulses are intact. Neurologically the patient is awake and alert and moving all flex images without any limitation. His OA 3 - Labs CBC & Chem 7: 04/28/17 06:44 04/28/17 06:44 Labs: Abnormal Lab Results - Last 24 Hours (Table) 04/27/17 04/27/17 04/28/17 Range/Units 16:23 21:05 06:44 RBC 3.93 L (4.30-5.90) m/uL Hgb 11.5 L (13.0-17.5) gm/dL Hct 37.8 L (39.0-53.0) % MCHC 30.3 L (31.0-37.0) g/dL RDW 16.2 H (11.5-15.5) % Neutrophils # 9.0 H (1.3-7.7) k/uL Lymphocytes # 0.5 L (1.0-4.8) k/uL PT (9.0-12.0) sec INR (<1.2) Chloride (98-107) mmol/L Carbon Dioxide (22-30) mmol/L BUN (9-20) mg/dL Creatinine (0.66-1.25) mg/dL Glucose (74-99) mg/dL POC Glucose (mg/dL) 180 H 168 H (75-99) mg/dL 04/28/17 04/28/17 04/28/17 Range/Units 06:44 06:44 06:53 RBC (4.30-5.90) m/uL Hgb (13.0-17.5) gm/dL Hct (39.0-53.0) % MCHC (31.0-37.0) g/dL RDW (11.5-15.5) % Neutrophils # (1.3-7.7) k/uL Lymphocytes # (1.0-4.8) k/uL PT 18.3 H (9.0-12.0) sec INR 2.0 H (<1.2) Chloride 93 L (98-107) mmol/L Carbon Dioxide 42 H* (22-30) mmol/L BUN 49 H (9-20) mg/dL Creatinine 1.29 H (0.66-1.25) mg/dL Glucose 119 H (74-99) mg/dL POC Glucose (mg/dL) 109 H (75-99) mg/dL 04/28/17 Range/Units 11:30 RBC (4.30-5.90) m/uL Hgb (13.0-17.5) gm/dL Hct (39.0-53.0) % MCHC (31.0-37.0) g/dL RDW (11.5-15.5) % Neutrophils # (1.3-7.7) k/uL Lymphocytes # (1.0-4.8) k/uL PT (9.0-12.0) sec INR (<1.2) Chloride (98-107) mmol/L Carbon Dioxide (22-30) mmol/L BUN (9-20) mg/dL Creatinine (0.66-1.25) mg/dL Glucose (74-99) mg/dL POC Glucose (mg/dL) 150 H (75-99) mg/dL Microbiology - Last 24 Hours (Table) 04/27/17 19:07 Gram Stain - Preliminary Leg - Left Wound Culture - Preliminary Assessment and Plan Plan: Assessment 1 CHF exacerbation with development of bilateral pleural effusion right more than left and secondary shortness of breath. The patient had a thoracentesis of the right lung in February 2017 and a total of 1 L of pleural fluid was aspirated and the fluid was transudate with LDH and protein consistent with CHF. Furthermore, the fluid cytology was negative for malignancy. 2 chronic lower extremity edema and chronic venous ulceration, superficial ulceration with recurrent cellulitis involving the lower extremities. Previous cultures have shown pseudomonas aeruginosa, Enterococcus faecalis and MSSA 3 chronic atrial fibrillation with a subtherapeutic PT/INR maintained on long- term anticoagulation 4 obesity 5 peripheral vascular disease 6 diabetes mellitus 7 hypertension 8 hyperlipidemia 9 chronic renal failure, creatinine stable at 1.3 10 coronary artery disease 11 chronic hypotension 12 chronic anemia 13 history of ascites status post drainage of 6 L of abdominal fluid in February 2017 14 large umbilical hernia, patient to medical this point 15 impaired hearing 16 chronic anasarca Plan Patient denies any worsening shortness of breath, remains on 2 L of oxygen per nasal cannula, with O2 sat at 96%. Lung sounds are clear diminished at the bases, no rales, no rhonchi. Continue diuresis with IV Lasix for another 24 hours. Echocardiogram from 04/26/2016 has been reviewed, shows EF of 50-55%. Local wound care to bilateral lower leg cellulitis, continue Kefzol. I performed a history & physical examination of the patient and discussed their management with my nurse practitioner, Keila Quezada. I reviewed the nurse practitioner's note and agree with the documented findings and plan of care. Lung sounds are diminished. The findings and the impression was discussed with the patient. I attest to the documentation by the nurse practitioner. Time with Patient: Less than 30 <Tammy Lyman - Last Filed: 04/28/17 15:44> Objective - Vital Signs Vital signs: Vital Signs Temp 97.6 F 04/28/17 12:00 Pulse 102 H 04/28/17 12:00 Resp 18 04/28/17 12:00 BP 95/67 04/28/17 12:00 Pulse Ox 96 04/28/17 12:00 Intake & Output 04/27/17 04/28/17 04/28/17 18:59 06:59 18:59 Intake Total 720 1160 Balance 720 1160 Weight 107 kg Intake: Oral 720 1160 Other: Voiding Method Toilet Toilet Toilet # Voids 2 0 2 - Labs CBC & Chem 7: 04/28/17 06:44 04/28/17 06:44 Labs: Abnormal Lab Results - Last 24 Hours (Table) 04/27/17 04/27/17 04/28/17 Range/Units 16:23 21:05 06:44 RBC 3.93 L (4.30-5.90) m/uL Hgb 11.5 L (13.0-17.5) gm/dL Hct 37.8 L (39.0-53.0) % MCHC 30.3 L (31.0-37.0) g/dL RDW 16.2 H (11.5-15.5) % Neutrophils # 9.0 H (1.3-7.7) k/uL Lymphocytes # 0.5 L (1.0-4.8) k/uL PT (9.0-12.0) sec INR (<1.2) Chloride (98-107) mmol/L Carbon Dioxide (22-30) mmol/L BUN (9-20) mg/dL Creatinine (0.66-1.25) mg/dL Glucose (74-99) mg/dL POC Glucose (mg/dL) 180 H 168 H (75-99) mg/dL 04/28/17 04/28/17 04/28/17 Range/Units 06:44 06:44 06:53 RBC (4.30-5.90) m/uL Hgb (13.0-17.5) gm/dL Hct (39.0-53.0) % MCHC (31.0-37.0) g/dL RDW (11.5-15.5) % Neutrophils # (1.3-7.7) k/uL Lymphocytes # (1.0-4.8) k/uL PT 18.3 H (9.0-12.0) sec INR 2.0 H (<1.2) Chloride 93 L (98-107) mmol/L Carbon Dioxide 42 H* (22-30) mmol/L BUN 49 H (9-20) mg/dL Creatinine 1.29 H (0.66-1.25) mg/dL Glucose 119 H (74-99) mg/dL POC Glucose (mg/dL) 109 H (75-99) mg/dL 04/28/17 Range/Units 11:30 RBC (4.30-5.90) m/uL Hgb (13.0-17.5) gm/dL Hct (39.0-53.0) % MCHC (31.0-37.0) g/dL RDW (11.5-15.5) % Neutrophils # (1.3-7.7) k/uL Lymphocytes # (1.0-4.8) k/uL PT (9.0-12.0) sec INR (<1.2) Chloride (98-107) mmol/L Carbon Dioxide (22-30) mmol/L BUN (9-20) mg/dL Creatinine (0.66-1.25) mg/dL Glucose (74-99) mg/dL POC Glucose (mg/dL) 150 H (75-99) mg/dL Microbiology - Last 24 Hours (Table) 04/27/17 19:07 Gram Stain - Preliminary Leg - Left Wound Culture - Preliminary Assessment and Plan Plan: Patient was seen in the joint evaluation along with a nurse practitioner. I tested above-mentioned information. I was present at time of the evaluation. The patient is improving. He'll function is still stable. Continue Lasix 40 mg every 8 hours. Edema in lower extremities still present although it is improving. Continue antibiotics. Wound care. We'll follow.
[2017-04-28 16:25] VITALS: RESP 18
--- NOTE | 2017-04-28 16:36 | CDI ---
Last Revision, March 2017 Documentation Clarification Form Date: 04/28/2017 4:24:00 PM From: Rehana Ambrose Admit Date: 04/24/2017 6:31:00 PM Patient Name: Db Tucker Visit Number: [id number] ATTENTION: The Clinical Documentation Specialists (CDI) and [facility] Coding Staff appreciate your assistance in clarifying documentation. Please respond to the clarification below the line at the bottom and electronically sign. The CDI & [facility] Coding staff will review the response and follow-up if needed. Please note: Queries are made part of the Legal Health Record. If you have any questions, please contact the author of this message via ITS. Dr. Bishnu Irvin and Dora Butt, Conflicting documentation has been found in the medical record. Your progress notes indicate 'acute on chronic chf exacerbation, systolic dysfunction, EF 40%'. Cardiology notes indicate 'diastolic chf acute on chronic'. History/Risk Factors: HTN, HLD, AFib, Acute on Chronic Renal Failure stage 3 Clinical Indicators: Ascites Pleural effusion, right greater than left Echo 04/26/17 shows EF 50-55%, overall left ventricular systolic function is low-normal Treatment: IV Lasix In your opinion what is the most clinically appropriate diagnosis for this patient? Acute on Chronic Systolic CHF Acute on Chronic Diastolic CHF Acute on Chronic Systolic and Diastolic CHF Other explanation of clinical findings Unable to determine (no explanation for clinical findings) Please continue to document in your progress notes and discharge summary in order to capture severity of illness and risk of mortality. Include clinical findings that support your diagnosis. Acute on Chronic Diastolic CHF MTDD
[2017-04-28 16:40] LABS: Glucose,Whole Blood 134 mg/dL (75-99)
--- NOTE | 2017-04-28 17:33 | P.PN ---
Subjective Progress Note Date: 04/28/17 Progress note being dictated for Dr. Irvin. Interval history: This 82-year-old gentleman admitted with acute CHF exacerbation, pleural effusions, ascites and multiple other medical issues. Diuresing on Lasix IV push, improving. Reports exertional dyspnea. EF 50-55% abdominal ultrasound reporting moderate amount recurrent ascites. Anticoagulated on Coumadin with current INR 2.1. Maintained on Kefzol as per ID. Denies chest pain, palpitations. 04/28/17 maintained on IV Lasix. 24 hour I&O reflecting a positive weight gain. Maintaining O2 sats of high 90s on 2 L nasal cannula. Afebrile. Wound culture in progress. Antibiotics as per infectious disease. Denies chest pain, palpitations or increasing shortness of breath. INR 2.0. Objective - Vital Signs Vital signs: Vital Signs Temp 97.6 F 04/28/17 12:00 Pulse 80 04/28/17 16:38 Resp 18 04/28/17 12:00 BP 95/67 04/28/17 12:00 Pulse Ox 96 04/28/17 12:00 Intake & Output 04/27/17 04/28/17 04/28/17 18:59 06:59 18:59 Intake Total 720 1160 Balance 720 1160 Weight 107 kg Intake: Oral 720 1160 Other: Voiding Method Toilet Toilet Toilet # Voids 2 0 2 - Exam PHYSICAL EXAM: VITAL SIGNS: As above GENERAL: Sitting up in chair , no acute distress HEENT: Conjunctivae normal. eyes normal. Oral mucosa moist NECK: positive JVD. No thyroid enlargement. No LNs CARDIOVASCULAR: S1, S2 muffled. Irregular, systolic murmur RESPIRATION: Breath sounds diminished in the bases. No rhonchi, no crackles. No wheezing. No bronchial breathing. ABDOMEN: Soft, nontender . No guarding. no masses palpable. Positive ascites, Bowel sounds heard. No rigidity LEGS: Bilateral leg edema, erythema, celllulitis present. Discoloration secondary to chronic venous stasis ulceration. Dressings clean dry and intact PSYCHIATRY: Alert and oriented -3, mood and affect normal. NERVOUS SYSTEM: Cranial N 2-12 grossly normal. Moves all 4 limbs. Diffuse weakness No focal deficits. No sensory deficit. Lymphatic system. No LN neck axilla or groin. Microbiology 04/27/17 19:07 Leg - Left Gram Stain - Preliminary 04/27/17 19:07 Leg - Left Wound Culture - Preliminary - Labs CBC & Chem 7: 04/28/17 06:44 04/28/17 06:44 Labs: Abnormal Lab Results - Last 24 Hours (Table) 04/27/17 04/28/17 04/28/17 Range/Units 21:05 06:44 06:44 RBC 3.93 L (4.30-5.90) m/uL Hgb 11.5 L (13.0-17.5) gm/dL Hct 37.8 L (39.0-53.0) % MCHC 30.3 L (31.0-37.0) g/dL RDW 16.2 H (11.5-15.5) % Neutrophils # 9.0 H (1.3-7.7) k/uL Lymphocytes # 0.5 L (1.0-4.8) k/uL PT 18.3 H (9.0-12.0) sec INR 2.0 H (<1.2) Chloride (98-107) mmol/L Carbon Dioxide (22-30) mmol/L BUN (9-20) mg/dL Creatinine (0.66-1.25) mg/dL Glucose (74-99) mg/dL POC Glucose (mg/dL) 168 H (75-99) mg/dL 04/28/17 04/28/17 04/28/17 Range/Units 06:44 06:53 11:30 RBC (4.30-5.90) m/uL Hgb (13.0-17.5) gm/dL Hct (39.0-53.0) % MCHC (31.0-37.0) g/dL RDW (11.5-15.5) % Neutrophils # (1.3-7.7) k/uL Lymphocytes # (1.0-4.8) k/uL PT (9.0-12.0) sec INR (<1.2) Chloride 93 L (98-107) mmol/L Carbon Dioxide 42 H* (22-30) mmol/L BUN 49 H (9-20) mg/dL Creatinine 1.29 H (0.66-1.25) mg/dL Glucose 119 H (74-99) mg/dL POC Glucose (mg/dL) 109 H 150 H (75-99) mg/dL 04/28/17 Range/Units 16:36 RBC (4.30-5.90) m/uL Hgb (13.0-17.5) gm/dL Hct (39.0-53.0) % MCHC (31.0-37.0) g/dL RDW (11.5-15.5) % Neutrophils # (1.3-7.7) k/uL Lymphocytes # (1.0-4.8) k/uL PT (9.0-12.0) sec INR (<1.2) Chloride (98-107) mmol/L Carbon Dioxide (22-30) mmol/L BUN (9-20) mg/dL Creatinine (0.66-1.25) mg/dL Glucose (74-99) mg/dL POC Glucose (mg/dL) 134 H (75-99) mg/dL Microbiology - Last 24 Hours (Table) 04/27/17 19:07 Gram Stain - Preliminary Leg - Left Wound Culture - Preliminary Assessment and Plan Assessment: 1. Acute on chronic congestive heart failure exacerbation, diastolic dysfunction, EF 50-55%%( repeated Echo). ( JAN. EF 40-45%) 2. Pleural effusion, right greater than left 3. Ascites, last paracentesis February 2017, 6 L 4. Recent right-sided thoracentesis and hydropneumothorax 5. CAD 6. Chronic persistent atrial fibrillation 7. Severe peripheral vascular disease with Bilateral leg venous stasis ulcers 8. Previous infection with Pseudomonas/group strep B 9. Acute on chronic renal failure, stage III Plan: Continue on current medication regime , kefzol, Coumadin, monitoring and symptomatic treatment. Maintain IV Lasix for another 24 hours. Strict I&O. Kamran ambulation as tolerated. The impression and plan of care has been dictated as directed. : I performed a history and examination of this patient, discussed the same with the dictator. I agree with the dictator's note ,documented as a scribe. Any additional findings or plans will be noted.
[2017-04-28] MEDS: WARFARIN 3 MG TAB PO SCH (18:21)
[2017-04-28] MEDS: SODIUM CHLORIDE 0.9% 1,000 ML IV SCH (18:22)
[2017-04-28] MEDS: POLYETHYLENE GLYCOL 3350 17 GM POWD.PACK PO PRN (20:50)
[2017-04-28 20:57] LABS: Glucose,Whole Blood 203 mg/dL (75-99)
--- NOTE | 2017-04-28 22:18 | PN ---
PROGRESS NOTE DATE OF SERVICE: 04/28/2017. REASON FOR FOLLOWUP: Bilateral extremity venous stasis ulcer and cellulitis. INTERVAL HISTORY: The patient is afebrile. He is breathing slightly comfortably. Denies significant chest pain. Occasional cough. No abdominal pain. Denies any pain in the leg area. EXAMINATION: Blood pressure 96/60 with a pulse of 78, temperature 97.6. He is 96% on 2L nasal cannula. General description is an elderly male up in the chair in no distress. RESPIRATORY SYSTEM: Unlabored breathing. Clear to auscultation anteriorly. HEART: S1, S2. Regular rate and rhythm. ABDOMEN: Soft. No tenderness. Bilateral legs are currently dressed up, some drainage on the right thigh. LABS: Hemoglobin is 11.5, white count 10.6 with a BUN of 14 and creatinine is 1.29. DIAGNOSTIC IMPRESSION AND PLAN: Patient has bilateral lower extremity venous stasis ulcer and cellulitis. The patient at this time will continue with cefazolin, Aquacel Silver dressing. Continue supportive care. MMODL / IJN: [id number] /
[2017-04-29] MEDS: FUROSEMIDE 10 MG/ML 4 ML VIAL IV SCH ×2 (03:25→10:00)
[2017-04-29] MEDS: ceFAZolin IN SWFI 2 GM/20 ML SYRINGE IVP SCH ×2 (03:26→13:39)
[2017-04-29] MEDS: ACETAMINOPHEN TAB 325 MG TAB PO PRN (03:35)
[2017-04-29 06:20] LABS: Glucose,Whole Blood 134 mg/dL (75-99)
[2017-04-29 06:29] LABS: Anisocytosis Slight; Basophils % (A) 0 %; Eosinophils # (A) 0.2 k/uL (0-0.7); Eosinophils % (A) 2 %; HGB 11.3 gm/dL (13.0-17.5); Hypochromasia Moderate; Lymphocytes # (A) 0.4 k/uL (1.0-4.8); Lymphocytes % (A) 3 %; MCH 29.5 pg (25.0-35.0); MCHC 30.6 g/dL (31.0-37.0); MCV 96.6 fL (80.0-100.0); Macrocytosis Slight; Mean Platelet Volume 7.3; Monocytes # (A) 0.6 k/uL (0-1.0); Monocytes % (A) 5 %; Neutrophils # (A) 9.8 k/uL (1.3-7.7); Neutrophils % (A) 89 %; Platelet Count 275 k/uL (150-450); RBC 3.84 m/uL (4.30-5.90); RDW 17.4 % (11.5-15.5); WBC 11.1 k/uL (3.8-10.6)
[2017-04-29 06:42] LABS: Prothrombin Time 18.1 sec (9.0-12.0)
[2017-04-29] MEDS: INSULIN ASPART 100 UNIT/ML 1 ML 10 ML VIAL SQ SCH ×3 (06:42→17:30)
[2017-04-29 06:44] LABS: Anion Gap 8 mmol/L; Blood Urea Nitrogen 55 mg/dL (9-20); Calcium 8.5 mg/dL (8.4-10.2); Carbon Dioxide 35 mmol/L (22-30); Chloride 96 mmol/L (98-107); Glucose 141 mg/dL (74-99); Potassium 3.9 mmol/L (3.5-5.1); Sodium 139 mmol/L (137-145)
[2017-04-29] MEDS: IPRATROPIUM-ALBUTEROL 3 ML NEB INHALATION SCH ×3 (09:20→16:13)
[2017-04-29] MEDS: ASPIRIN 81 MG PO SCH (09:59)
[2017-04-29] MEDS: FERROUS SULFATE 325 MG TAB PO SCH (09:59)
[2017-04-29] MEDS: LINAGLIPTIN 5 MG TABLET PO SCH (09:59)
[2017-04-29] MEDS: POLYETHYLENE GLYCOL 3350 17 GM POWD.PACK PO PRN (09:59)
[2017-04-29] MEDS: METOPROLOL TARTRATE 50 MG TAB PO SCH (09:59)
[2017-04-29 12:08] LABS: Glucose,Whole Blood 166 mg/dL (75-99)
[2017-04-29] MEDS: MULTIVITAMINS, THERA 1 EACH TAB PO SCH (13:39)
--- NOTE | 2017-04-29 14:44 | P.PN ---
Subjective Progress Note Date: 04/29/17 Principal diagnosis: CHF This is a pleasant 82-year-old gentleman with history of chronic diastolic congestive heart failure, chronic persistent atrial fibrillation, diabetes, hypertension, hyperlipidemia, referral vascular disease, chronic venous stasis, chronic anemia, chronic anasarca, who was at the wound clinic receiving treatment for his chronic venous stasis and ulcers, it was noted that the patient had significant abdominal distention and bilateral lower extremity edema and he was advised to come to the emergency room for further evaluation. Cardiology consultation was requested for congestive cardiac failure. Approximately one month ago, patient states that he did have 8 L of fluid removed from his abdomen at [facility]. KUB of the abdomen performed on admission did not reveal any acute findings, positive pleural effusions. Chest x-ray showed congestive heart failure with pleural effusions, slightly worsened prior chest x-ray. EKG shows atrial fibrillation with a controlled ventricular response. The pressure on arrival here 100/70 with a heart rate in the 90s, 92% on room air. Temperature 90.7. At pressure this morning 114/70, heart rate 118, 92% on 2 L of oxygen. White blood cell count 12.5, hemoglobin 12.1, platelet count 314. INR 1.9, sodium 141, potassium 4.4, BUN 49, creatinine 1.3. BNP level 5170, troponin 0.012. Patient states he slept well through the night last night, around 4:30 was quite short of breath, currently sitting up in the chair at bedside. 04/27/2017 Patient was seen and examined this morning, continues to be on IV Lasix. Weight is unchanged today. Sodium 139, potassium 3.8, BUN 49, creatinine 1.3. In are today is 2.1. Echocardiogram with Doppler study was performed which revealed an ejection fraction of 50-55%. Continues to be on IV Lasix. He is somewhat improved today. Ultrasound of the abdomen was performed which revealed moderate ascites in bilateral upper and lower quadrants. 04/28/2017 Patient seen and examined this morning, sitting up in the chair, feeling better today. Continues to cough up small amounts of yellow sputum. Blood pressure 92 /56, heart rate in the 90s to low 100s, 96% on 2 L of oxygen. Hemoglobin 11.5, INR 2.0, potassium 4.1, BUN 49, creatinine 1.2. Continues to be on IV Lasix. 04/29/2017 Patient seen and examined this morning, weight down again today. Breathing is overall stable. IV Lasix was discontinued and patient was changed over to oral diuretics. Will be discharged home today. We will make him a follow-up appointment in the office post discharge. Objective - Vital Signs Vital signs: Vital Signs Temp 96.1 F L 04/29/17 08:00 Pulse 80 04/29/17 11:02 Resp 18 04/29/17 08:00 BP 94/58 04/29/17 08:00 Pulse Ox 98 04/29/17 08:00 Intake & Output 04/28/17 04/29/17 04/29/17 18:59 06:59 18:59 Intake Total 1706 20 220 Output Total 450 Balance 1706 -430 220 Weight 99.3 kg Intake: IV 10 20 Sodium Chloride 0.9% 1, 10 20 000 ml @ 20 mls/hr IV . Q24H [facility] Rx#:[id number] Oral 1696 220 Output: Urine 450 Other: Voiding Method Toilet Toilet # Voids 2 1 # Bowel Movements 1 - Exam PHYSICAL EXAMINATION: HEENT: Head is atraumatic, normocephalic. Pupils equal, round. Neck is supple. There is elevated jugular venous pressure. HEART EXAMINATION: Heart S1 and S2 irregularly irregular a systolic murmur is heard. CHEST EXAMINATION: Lungs reveal scattered coarse rhonchi throughout with diminished air entry to the bases. ABDOMEN: Obese, firm and distended . Bowel sounds are heard. No organomegaly noted. EXTREMITIES: 1+ peripheral pulses with 2+ evidence of peripheral edema , evidence of chronic venous stasis and ulcerations. NEUROLOGIC patient is awake, alert and oriented -3. . - Labs CBC & Chem 7: 04/29/17 06:18 04/29/17 06:18 Labs: Abnormal Lab Results - Last 24 Hours (Table) 04/28/17 04/28/17 04/29/17 Range/Units 16:36 20:55 06:18 WBC 11.1 H (3.8-10.6) k/uL RBC 3.84 L (4.30-5.90) m/uL Hgb 11.3 L (13.0-17.5) gm/dL Hct 37.0 L (39.0-53.0) % MCHC 30.6 L (31.0-37.0) g/dL RDW 17.4 H (11.5-15.5) % Neutrophils # 9.8 H (1.3-7.7) k/uL Lymphocytes # 0.4 L (1.0-4.8) k/uL PT (9.0-12.0) sec INR (<1.2) Chloride (98-107) mmol/L Carbon Dioxide (22-30) mmol/L BUN (9-20) mg/dL Creatinine (0.66-1.25) mg/dL Glucose (74-99) mg/dL POC Glucose (mg/dL) 134 H 203 H (75-99) mg/dL 04/29/17 04/29/17 04/29/17 Range/Units 06:18 06:18 06:18 WBC (3.8-10.6) k/uL RBC (4.30-5.90) m/uL Hgb (13.0-17.5) gm/dL Hct (39.0-53.0) % MCHC (31.0-37.0) g/dL RDW (11.5-15.5) % Neutrophils # (1.3-7.7) k/uL Lymphocytes # (1.0-4.8) k/uL PT 18.1 H (9.0-12.0) sec INR 2.0 H (<1.2) Chloride 96 L (98-107) mmol/L Carbon Dioxide 35 H (22-30) mmol/L BUN 55 H (9-20) mg/dL Creatinine 1.36 H (0.66-1.25) mg/dL Glucose 141 H (74-99) mg/dL POC Glucose (mg/dL) 134 H (75-99) mg/dL 04/29/17 Range/Units 11:56 WBC (3.8-10.6) k/uL RBC (4.30-5.90) m/uL Hgb (13.0-17.5) gm/dL Hct (39.0-53.0) % MCHC (31.0-37.0) g/dL RDW (11.5-15.5) % Neutrophils # (1.3-7.7) k/uL Lymphocytes # (1.0-4.8) k/uL PT (9.0-12.0) sec INR (<1.2) Chloride (98-107) mmol/L Carbon Dioxide (22-30) mmol/L BUN (9-20) mg/dL Creatinine (0.66-1.25) mg/dL Glucose (74-99) mg/dL POC Glucose (mg/dL) 166 H (75-99) mg/dL Microbiology - Last 24 Hours (Table) 04/27/17 19:07 Gram Stain - Preliminary Leg - Left Wound Culture - Preliminary Presumptive Staph aureus Assessment and Plan Plan: Assessment and plan #1 diastolic congestive heart failure acute on chronic, patient patient did have an echocardiogram with Doppler study performed in January which revealed an ejection fraction of 40-45%, mild MR and mild to moderate TR. #2 chronic persistent atrial fibrillation #3 hypertension #4 hyperlipidemia #5 severe peripheral vascular disease #6 chronic anasarca #7 chronic anemia Plan Echocardiogram with Doppler study was repeated which revealed an ejection fraction of 50-55%. We will discontinue the IV Lasix and start the patient on Lasix 60 mg by mouth twice a day. Cardiology's perspective he may be able to be discharged home today, follow-up appointment will be made in the office post discharge. DNP note has been reviewed, I agree with a documented findings and plan of care. Patient was seen and examined.
[2017-04-29 15:39] VITALS: TEMP 96.9
[2017-04-29] MEDS ORDERED: FUROSEMIDE 20 MG TAB PO SCH (16:00)
--- NOTE | 2017-04-29 16:40 | P.PN ---
<Keial Quezada M - Last Filed: 04/29/17 16:32> Subjective Progress Note Date: 04/29/17 Principal diagnosis: CHF exacerbation, bilateral pleural effusions, right more than left and secondary shortness of breath. Pleasant 82-year-old male patient who was sent over to the hospital from the primary care physician due to increased shortness of breath and signs of fluid overload. The patient is known to me not taking care of him in the past. In fact we haven't drained this patient's right lung so a thoracentesis and the fluid was a transudate consistent with CHF. He is known to have CHF with diastolic dysfunction, chronic atrial fibrillation, chronic lower extremities edema and venous stasis in lower extremities bilaterally in addition to hypertension, hyperlipidemia and peripheral vascular disease. The patient also suffers from chronic renal failure and his current creatinine is around 1.3. The patient is or the be started on diuretics. He is on IV Lasix for now. Is producing adequate amount of urine output. No chest pain. No angina. No cough or sputum production. No pleurisy. Chest x-ray findings are essentially the same compared to the previous chest x-ray that was done approximately a month ago. There is a moderate-sized right-sided pleural effusion and a small left-sided pleural effusion along with that there is increased pulmonary vascular markings. The patient has a normal troponin. ProBNP level is slightly elevated at 5170. On 04/27/2017 patient seen in follow-up on selective care floor. He reports modest improvements in his respiratory status, states his breathing is not much improved since admission. Still becomes very dyspneic on exertion. No acute distress at rest, remains on 3 L per nasal cannula at 90-94 and 100%. He is afebrile, hemodynamically stable, lung sounds are diminished, more so over right lower base. No rhonchi, no rales, wheezes auscultated. He's being diuresed on IV Lasix 40 mg every 8 hours. Fluid status is hard to estimate, patient is voiding on the toilet. Bilateral lower extremities cellulitis persists, bilateral lower extremities remained red and swollen and weepy, local wound care with wrapping is being done. On 04/28/2017 patient seen in follow-up. Vital signs are stable, patient is afebrile, currently on 2 L per nasal cannula, with O2 sat 96%. Lung sounds are diminished, more so on the right side. No rhonchi, no wheezes auscultated. He continues with diuresis on Lasix 40 mg every 8 hours, his weight is actually up today 1.1 kg, his net fluid balance is hard to estimate, because the patient is voiding on the toilet, and at times misses the toilet. His renal function remains stable, despite the diuresis. He denies any worsening dyspnea. Echocardiogram with Doppler was performed and showed an ejection fraction of 50- 55%. Ultrasound of the abdomen showed moderate ascites in bilateral upper and lower quadrants. Chest x-ray from 04/27/2017 was reviewed and shows congestive heart failure with pleural effusions. Left leg wound Gram stain showed few polymorphonuclear leukocytes, but no organisms were seen, aerobic wound culture is in progress. ID service is following. Patient continues on For the Bilateral Lower Leg Cellulitis. On 04/29/2017 patient seen in follow-up. He reports improvement in terms of his dyspnea, has been ambulating with a walker within the room and the messer, tolerating activity well. Lung sounds are diminished, no rhonchi, no wheezes auscultated. Remains on 2 L per nasal cannula with O2 sat at 96%. Remains afebrile. His renal profile is slightly worse today, B1 is up to 55, and creatinine is 1.36. His weight is down to 99.3 kg today. Bilateral lower extremity edema has improved, his lower legs Bill wrapped, there is some residual 1+ edema and cellulitis. Patient's IV Lasix was switched to oral Lasix per cardiology today. Otherwise patient denies any specific complaints. Objective - Vital Signs Vital signs: Vital Signs Temp 96.9 F L 04/29/17 12:00 Pulse 98 04/29/17 16:26 Resp 18 04/29/17 12:00 BP 92/65 04/29/17 12:00 Pulse Ox 96 04/29/17 16:14 Intake & Output 04/28/17 04/29/17 04/29/17 18:59 06:59 18:59 Intake Total 1706 20 620 Output Total 450 1050 Balance 1706 -430 -430 Weight 99.3 kg Intake: IV 10 20 Sodium Chloride 0.9% 1, 10 20 000 ml @ 20 mls/hr IV . Q24H [facility] Rx#:[id number] Oral [id number] 534 Output: Urine 450 1050 Other: Voiding Method Toilet Toilet # Voids 2 1 # Bowel Movements 1 - Exam GENERAL EXAM: Alert, active, comfortable in no apparent distress. The patient on acute ST or distress. He is awake and alert. HEAD: Normocephalic. EYES: Normal reaction of pupils, equal size. NOSE: Clear with pink turbinates. THROAT: No erythema or exudates. NECK: No masses, there is positive JVDs, and there is also significant crowding of the posterior oropharynx. CHEST: No chest wall deformity. LUNGS: Lung sounds are generally diminished, equal air entry with no wheeze, rhonchi, dullness to percussion at the bases. CVS: S1 and S2 normal with no audible murmurs, irregular rhythm. ABDOMEN: No hepatosplenomegaly, normal bowel sounds, no guarding or rigidity. Extremities: There is discoloration of lower extremity secondary to chronic venous stasis ulceration throughout the lower extremities bilaterally extending between the ankles and the knees.. Dressings are clean and dry. There remains one to 2+ peripheral edema. No clubbing, no cyanosis. Peripheral pulses are intact. Neurologically the patient is awake and alert and moving all flex images without any limitation. His OA 3 - Labs CBC & Chem 7: 04/29/17 06:18 04/29/17 06:18 Labs: Abnormal Lab Results - Last 24 Hours (Table) 04/28/17 04/28/17 04/29/17 Range/Units 16:36 20:55 06:18 WBC 11.1 H (3.8-10.6) k/uL RBC 3.84 L (4.30-5.90) m/uL Hgb 11.3 L (13.0-17.5) gm/dL Hct 37.0 L (39.0-53.0) % MCHC 30.6 L (31.0-37.0) g/dL RDW 17.4 H (11.5-15.5) % Neutrophils # 9.8 H (1.3-7.7) k/uL Lymphocytes # 0.4 L (1.0-4.8) k/uL PT (9.0-12.0) sec INR (<1.2) Chloride (98-107) mmol/L Carbon Dioxide (22-30) mmol/L BUN (9-20) mg/dL Creatinine (0.66-1.25) mg/dL Glucose (74-99) mg/dL POC Glucose (mg/dL) 134 H 203 H (75-99) mg/dL 04/29/17 04/29/17 04/29/17 Range/Units 06:18 06:18 06:18 WBC (3.8-10.6) k/uL RBC (4.30-5.90) m/uL Hgb (13.0-17.5) gm/dL Hct (39.0-53.0) % MCHC (31.0-37.0) g/dL RDW (11.5-15.5) % Neutrophils # (1.3-7.7) k/uL Lymphocytes # (1.0-4.8) k/uL PT 18.1 H (9.0-12.0) sec INR 2.0 H (<1.2) Chloride 96 L (98-107) mmol/L Carbon Dioxide 35 H (22-30) mmol/L BUN 55 H (9-20) mg/dL Creatinine 1.36 H (0.66-1.25) mg/dL Glucose 141 H (74-99) mg/dL POC Glucose (mg/dL) 134 H (75-99) mg/dL 04/29/17 Range/Units 11:56 WBC (3.8-10.6) k/uL RBC (4.30-5.90) m/uL Hgb (13.0-17.5) gm/dL Hct (39.0-53.0) % MCHC (31.0-37.0) g/dL RDW (11.5-15.5) % Neutrophils # (1.3-7.7) k/uL Lymphocytes # (1.0-4.8) k/uL PT (9.0-12.0) sec INR (<1.2) Chloride (98-107) mmol/L Carbon Dioxide (22-30) mmol/L BUN (9-20) mg/dL Creatinine (0.66-1.25) mg/dL Glucose (74-99) mg/dL POC Glucose (mg/dL) 166 H (75-99) mg/dL Microbiology - Last 24 Hours (Table) 04/27/17 19:07 Gram Stain - Preliminary Leg - Left Wound Culture - Preliminary Presumptive Staph aureus Assessment and Plan Plan: Assessment 1 CHF exacerbation with development of bilateral pleural effusion right more than left and secondary shortness of breath. The patient had a thoracentesis of the right lung in February 2017 and a total of 1 L of pleural fluid was aspirated and the fluid was transudate with LDH and protein consistent with CHF. Furthermore, the fluid cytology was negative for malignancy. Patient's CHF exacerbation was treated medically, patient has been diuresing on IV Lasix with improvement 2 chronic lower extremity edema and chronic venous ulceration, superficial ulceration with recurrent cellulitis involving the lower extremities. Previous cultures have shown pseudomonas aeruginosa, Enterococcus faecalis and MSSA 3 chronic atrial fibrillation with a subtherapeutic PT/INR maintained on long- term anticoagulation 4 obesity 5 peripheral vascular disease 6 diabetes mellitus 7 hypertension 8 hyperlipidemia 9 chronic renal failure, creatinine stable at 1.3 10 coronary artery disease 11 chronic hypotension 12 chronic anemia 13 history of ascites status post drainage of 6 L of abdominal fluid in February 2017 14 large umbilical hernia, patient to medical this point 15 impaired hearing 16 chronic anasarca Plan Patient denies any worsening shortness of breath, remains on 2 L of oxygen per nasal cannula, with O2 sat at 96%. Lung sounds are clear diminished at the bases, no rales, no rhonchi. Renal profile is slightly worse, IV Lasix was switched to oral Lasix per cardiology. Local wound care to bilateral lower leg cellulitis, continue Kefzol. Patient has improved, responded well to diuresis. Discharge home in the next 24 hours. I performed a history & physical examination of the patient and discussed their management with my nurse practitioner, Keila Quezada. I reviewed the nurse practitioner's note and agree with the documented findings and plan of care. Lung sounds are diminished. The findings and the impression was discussed with the patient. I attest to the documentation by the nurse practitioner. Time with Patient: Less than 30 <Tammy Lyman - Last Filed: 04/29/17 16:58> Objective - Vital Signs Vital signs: Vital Signs Temp 96.9 F L 04/29/17 12:00 Pulse 98 04/29/17 16:26 Resp 18 04/29/17 12:00 BP 92/65 04/29/17 12:00 Pulse Ox 96 04/29/17 16:14 Intake & Output 04/28/17 04/29/17 04/29/17 18:59 06:59 18:59 Intake Total 1706 20 620 Output Total 450 1050 Balance 1706 -430 -430 Weight 99.3 kg Intake: IV 10 20 Sodium Chloride 0.9% 1, 10 20 000 ml @ 20 mls/hr IV . Q24H [facility] Rx#:[id number] Oral 1696 620 Output: Urine 450 1050 Other: Voiding Method Toilet Toilet # Voids 2 1 # Bowel Movements 1 - Labs CBC & Chem 7: 04/29/17 06:18 04/29/17 06:18 Labs: Abnormal Lab Results - Last 24 Hours (Table) 04/28/17 04/29/17 04/29/17 Range/Units 20:55 06:18 06:18 WBC 11.1 H (3.8-10.6) k/uL RBC 3.84 L (4.30-5.90) m/uL Hgb 11.3 L (13.0-17.5) gm/dL Hct 37.0 L (39.0-53.0) % MCHC 30.6 L (31.0-37.0) g/dL RDW 17.4 H (11.5-15.5) % Neutrophils # 9.8 H (1.3-7.7) k/uL Lymphocytes # 0.4 L (1.0-4.8) k/uL PT 18.1 H (9.0-12.0) sec INR 2.0 H (<1.2) Chloride (98-107) mmol/L Carbon Dioxide (22-30) mmol/L BUN (9-20) mg/dL Creatinine (0.66-1.25) mg/dL Glucose (74-99) mg/dL POC Glucose (mg/dL) 203 H (75-99) mg/dL 04/29/17 04/29/17 04/29/17 Range/Units 06:18 06:18 11:56 WBC (3.8-10.6) k/uL RBC (4.30-5.90) m/uL Hgb (13.0-17.5) gm/dL Hct (39.0-53.0) % MCHC (31.0-37.0) g/dL RDW (11.5-15.5) % Neutrophils # (1.3-7.7) k/uL Lymphocytes # (1.0-4.8) k/uL PT (9.0-12.0) sec INR (<1.2) Chloride 96 L (98-107) mmol/L Carbon Dioxide 35 H (22-30) mmol/L BUN 55 H (9-20) mg/dL Creatinine 1.36 H (0.66-1.25) mg/dL Glucose 141 H (74-99) mg/dL POC Glucose (mg/dL) 134 H 166 H (75-99) mg/dL Microbiology - Last 24 Hours (Table) 04/27/17 19:07 Gram Stain - Preliminary Leg - Left Wound Culture - Preliminary Presumptive Staph aureus Assessment and Plan Plan: This is a joint evaluation that was done along with a nurse practitioner. I tested above-mentioned information. The patient improved with diuresis. The patient will likely get discharged home within next 24 hours. Pulmonary and critical care services we'll sign off the case.
--- NOTE | 2017-04-29 16:55 | PN ---
PROGRESS NOTE DATE OF SERVICE: 04/29/2017. REASON FOR FOLLOW UP: Bilateral lower extremity venous stasis ulcer and cellulitis. INTERVAL HISTORY: The patient is afebrile, has been breathing comfortably. Denies significant chest pain. No cough. No abdominal pain. No pain in leg area. The patient is insistent and wants to go home. EXAMINATION: Blood pressure 92/65 with a pulse of 96, temperature 96.9. He is 95% on room air. General description is an elderly male up in the chair in no distress. Respiratory system: Unlabored breathing, clear to auscultation anteriorly. HEART: S1, S2. Regular. ABDOMEN: Soft. Nontender. Legs are currently wrapped up. However no drainage on the dressing. LABS: Hemoglobin 11.8, white count 11.1 with BUN 55, creatinine is 1.36. DIAGNOSTIC IMPRESSION AND PLAN: Patient with bilateral lower extremity venous stasis ulcer with some secondary cellulitis. Overall improvement on cefazolin and Aquacel silver dressing that will be continued. Antibiotic with short course of oral Keflex. Continue local wound care as ordered and follow up [facility] next week. MMODL / IJN: [id number] /
[2017-04-29] MEDS: WARFARIN 3 MG TAB PO SCH (17:29)
[2017-04-29 17:37] LABS: Glucose,Whole Blood 132 mg/dL (75-99)
[2017-04-29 17:45] VITALS: BP 96/54; PULSE 96
[2017-04-29] MEDS: SODIUM CHLORIDE 0.9% 1,000 ML IV SCH (19:39)
--- NOTE | 2017-04-30 09:38 | DS ---
DISCHARGE SUMMARY DATE OF SERVICE: 04/29/2017. FINAL DIAGNOSES: 1. Congestive heart failure acute exacerbation acute on chronic systolic and acute on chronic diastolic dysfunction, ejection fraction 50 to 55% on repeat echo. 2. Pleural effusion, right more than left. 3. Ascites. Last paracentesis was 2006 6 L. 4. Recent right-sided thoracocentesis and hydropneumothorax. 5. Coronary artery disease. 6. Chronic persistent atrial fibrillation. 7. History of chronic obstructive pulmonary disease. 8. Peripheral vascular disease. 9. Bilateral leg venostasis ulcers. 10.Previous infection with Pseudomonas group Strep B. 11.Acute on chronic renal failure stage 3. DISCHARGE DISPOSITION: Patient is discharged in a stable condition with guarded prognosis. Total time taken is 35 minutes. HISTORY OF PRESENT ILLNESS: This 82-year-old gentleman who presented with multiple medical problems being followed by Dr. Bartlett in the outpatient setting admitted with CHF acute exacerbation, cellulitis and multiple other medical problems. Patient treated symptomatically. The patient had significant improvement; however ECF rehab was recommended by myself and as well as Dr. Bartlett but however the patient would like to go home at this time. Please refer to the staff notes and Sound Assistant note for further details. On exam, vitals are stable. Cardiovascular: S1, S2. Respiratory: A few scattered rhonchi. Abdomen: Soft. Nervous System: No focal deficits. DISCHARGE DISPOSITION: 1. Diet is cardiac. 2. Activity is limited until followup. 3. Follow with Dr. Bartlett 2-3 days. 4. Home care is being arranged. 5. Follow with Dr. Lyman as advised. 6. Follow with cardiology as advised. MEDICATIONS: 1. Tylenol 650 q.6 p.r.n. 2. Keflex 500 mg p.o. t.i.d. for 7 days. 3. Colace 100 mg p.o. b.i.d. 4. Iron gluconate 320 mg p.o. b.i.d. 5. Lasix 60 mg p.o. b.i.d. 6. Albuterol and Atrovent q.i.d. and p.r.n. 7. Lopressor 100 mg p.o. b.i.d. 8. Multivitamins 1 p.o. daily. 9. MiraLAX 17 g daily. 10.Januvia 100 mg p.o. daily. 11.Coumadin 3 mg Tuesday, Tuesday, , Tuesday and 4.5 mg Tuesday, Tuesday and Tuesday. 12.Followup labs with Dr. Bartlett, CBC, BMP, PT, INR. Once again, the patient is being discharged in stable condition with guarded prognosis. Total time taken 35 minutes. TANESHA / TBOY: [id number] /
== END 2017-04-29 19:36 | disposition home health service (06) | DRG 291 ==
LOC: EC 15:18 → 6SEL 18:31
PROVIDERS: ADMIT Internal Medicine; ATTEND Internal Medicine
DX: I13.0 Hypertensive heart and chronic kidney disease with heart failure and stage 1 through stage 4 chronic kidney disease, or unspecified chronic kidney disease (principal); I50.43 Acute on chronic combined systolic (congestive) and diastolic (congestive) heart failure; N17.9 Acute kidney failure, unspecified; I48.1 Persistent atrial fibrillation; E11.22 Type 2 diabetes mellitus with diabetic chronic kidney disease; E11.51 Type 2 diabetes mellitus with diabetic peripheral angiopathy without gangrene; R18.8 Other ascites; I95.89 Other hypotension; N18.3 Chronic kidney disease, stage 3 (moderate); I08.1 Rheumatic disorders of both mitral and tricuspid valves; L03.115 Cellulitis of right lower limb; L03.116 Cellulitis of left lower limb; D64.9 Anemia, unspecified; E66.9 Obesity, unspecified; E78.5 Hyperlipidemia, unspecified; H91.90 Unspecified hearing loss, unspecified ear; I25.10 Atherosclerotic heart disease of native coronary artery without angina pectoris; I48.2 Chronic atrial fibrillation; J44.9 Chronic obstructive pulmonary disease, unspecified; K42.9 Umbilical hernia without obstruction or gangrene; I87.2 Venous insufficiency (chronic) (peripheral); R09.02 Hypoxemia; B95.5 Unspecified streptococcus as the cause of diseases classified elsewhere; Z79.01 Long term (current) use of anticoagulants; Z79.84 Long term (current) use of oral hypoglycemic drugs; Z79.899 Other long term (current) drug therapy; Z87.891 Personal history of nicotine dependence; Z88.1 Allergy status to other antibiotic agents; Z88.8 Allergy status to other drugs, medicaments and biological substances; Z86.14 Personal history of Methicillin resistant Staphylococcus aureus infection; Z68.31 Body mass index [BMI] 31.0-31.9, adult
CPT/HCPCS: 36415; 71020; 71046; 74000; 76705; 80048; 80053; 81003; 82150; 83036; 83605; 83690; 83880; 84484; 85025; 85610; 85730; 87070; 87077; 87186; 87205; 93005; 93306; 94640; 94760; 96361; 96374; 99285

== ENCOUNTER 2017-05-02 10:48 | Inpatient (IN) | payer MEDICARE ==
[2017-05-02] MEDS ORDERED: IPRATROPIUM-ALBUTEROL 3 ML NEB INHALATION STA (11:03)
--- NOTE | 2017-05-02 11:07 | ED ---
General Adult HPI - General Chief complaint: Shortness of Breath Stated complaint: SOB Time Seen by Provider: 05/02/17 10:56 Source: patient, RN notes reviewed Mode of arrival: wheelchair Limitations: no limitations - History of Present Illness Initial comments: Patient is a pleasant 82-year-old male presenting to the emergency Department with difficulty breathing. Patient believes he was discharged from the hospital not long ago. Patient states dyspnea has increased over the past couple of days. Symptoms are somewhat to previous congestive heart failure. Patient states his leg wounds are chronic. Patient states he used to go the wound center for this. Patient does complain of swelling. Patient states sometimes his toes do have purplish discoloration. No fevers. Patient does have a cough that is been dry. - Related Data Home Medications Medication Instructions Recorded Confirmed sitaGLIPtin [Januvia] 100 mg PO DAILY 09/15/15 05/02/17 Multivitamins, Thera [Multivitamin 1 tab PO DAILY 02/09/17 05/02/17 (formulary)] Polyethylene Glycol 3350 [Miralax] 17 gm PO DAILY PRN 02/09/17 05/02/17 Ferrous Gluconate 324 mg PO BID 03/16/17 05/02/17 Warfarin [Coumadin] 3 mg PO SUTUTHSA 03/16/17 05/02/17 Docusate [Colace] 100 mg PO BID PRN 04/24/17 05/02/17 Warfarin Sodium [Coumadin] 4.5 mg PO DAILY 04/24/17 05/02/17 Previous Rx's Medication Instructions Recorded Acetaminophen Tab [Tylenol] 650 mg PO Q6HR PRN tab 03/25/17 Ipratropium-Albuterol Nebulize 3 ml INHALATION RT-QID #120 03/25/17 [Duoneb 0.5 mg-3 mg/3 ml Soln] ampul.neb Metoprolol Tartrate [Lopressor] 100 mg PO BID #120 tab 03/25/17 Cephalexin [Keflex] 500 mg PO TID #21 cap 04/29/17 Furosemide [Lasix] 60 mg PO BID@0900,1600 #180 tab 04/29/17 Allergies Allergy/AdvReac Type Severity Reaction Status Date / Time ciprofloxacin [From Cipro] Allergy Rash/Hives Verified 05/02/17 11:22 Vqxmmno-Yyn-Qar Reductase Allergy Rash/Hives Verified 05/02/17 11:22 Inhibitor Review of Systems ROS Statement: Those systems with pertinent positive or pertinent negative responses have been documented in the HPI. ROS Other: All systems not noted in ROS Statement are negative. Constitutional: Denies: fever Eyes: Denies: eye pain ENT: Denies: ear pain Respiratory: Reports: cough, dyspnea Cardiovascular: Denies: chest pain Endocrine: Reports: fatigue Gastrointestinal: Denies: abdominal pain Genitourinary: Denies: dysuria Musculoskeletal: Denies: back pain Skin: Denies: lesions Neurological: Denies: headache Past Medical History Past Medical History: Atrial Fibrillation, Coronary Artery Disease (CAD), Heart Failure, Diabetes Mellitus, Hyperlipidemia, Hypertension Additional Past Medical History / Comment(s): Chronic bilateral pleural effusions, chronic atrial fibrillation, obesity, peripheral vascular disease, hypertension, hyperlipidemia, chronic renal failure, coronary artery disease, chronic anemia, large umbilical hernia, impaired hearing/deafness, Congestion heart failure with diastolic dysfunction chronic lower extremity edema and chronic venous ulcers of the lower extremities bilaterally with previous infections with Pseudomonas, MSSA and strep group B, peripheral vascular disease , recurrent cellulitis and superficial ulceration of the lower extremities bilaterally History of Any Multi-Drug Resistant Organisms: MRSA Date of last positivie culture/infection: Unknonw per patient- possibly cultures at [facility] MDRO Source:: Unknonw Past Surgical History: Heart Catheterization, Hernia Repair Additional Past Surgical History / Comment(s): COLONOSCOPY 3, right inguinal hernia repair, bilateral cataract removal and lens implants, NASAL FRACTURE Past Anesthesia/Blood Transfusion Reactions: No Reported Reaction Past Psychological History: No Psychological Hx Reported Smoking Status: Former smoker Past Alcohol Use History: None Reported Past Drug Use History: None Reported - Past Family History Mother Family Medical History: Diabetes Mellitus Father Family Medical History: Prostate Disorder Additional Family Medical History / Comment(s): bowel disorder General Exam Limitations: no limitations General appearance: alert, other (Mild respiratory distress) Head exam: Present: atraumatic Eye exam: Present: normal appearance ENT exam: Present: normal oropharynx Neck exam: Present: other (JVD present) Respiratory exam: Present: respiratory distress, wheezes Cardiovascular Exam: Present: regular rate, irregular rhythm GI/Abdominal exam: Present: soft, distended. Absent: tenderness, guarding, rebound, rigid Extremities exam: Present: pedal edema Neurological exam: Present: alert Psychiatric exam: Present: normal affect, normal mood Skin exam: Present: cyanosis (Cyanosis of the ears and fingers and toes.), other (Multiple bilateral lower extremity leg wounds, stage II to 3.) Course Vital Signs 05/02/17 05/02/17 05/02/17 10:51 11:30 11:44 Temperature 97.8 F Pulse Rate 93 98 86 Respiratory 24 Rate Blood Pressure 114/64 O2 Sat by Pulse 84 L Oximetry 05/02/17 05/02/17 11:59 13:01 Temperature Pulse Rate 93 Respiratory 20 20 Rate Blood Pressure 99/64 O2 Sat by Pulse 100 Oximetry - Reevaluation(s) Reevaluation #1: 05/02/17 13:14 Patient has questionable pneumonia and will be covered with antibiotics. Abnormal vital signs are felt to be secondary to congestive heart failure. Patient does not meet sepsis criteria at this time. EKG Findings - EKG Comments: EKG Findings:: A. fib with a rate of 96. QRS 84. QT 364. QTC 459. Normal axis. Poor R-wave progression. No acute ST change. Medical Decision Making - Medical Decision Making Case was discussed in detail with practitioner Daquan, who will admit for Dr. Irvin, who covers for Dr. Bartlett. Patient reevaluated. Patient and family updated. Patient was slightly improved. - Lab Data Result diagrams: 05/02/17 11:16 05/02/17 11:16 Lab Results 05/02/17 05/02/17 05/02/17 Range/Units 11:16 11:16 11:16 WBC 13.5 H (3.8-10.6) k/uL RBC 4.27 L (4.30-5.90) m/uL Hgb 12.5 L (13.0-17.5) gm/dL Hct 41.7 (39.0-53.0) % MCV 97.6 (80.0-100.0) fL MCH 29.2 (25.0-35.0) pg MCHC 29.9 L (31.0-37.0) g/dL RDW 17.4 H (11.5-15.5) % Plt Count 280 (150-450) k/uL Neutrophils % 90 % Lymphocytes % 2 % Monocytes % 5 % Eosinophils % 1 % Basophils % 0 % Neutrophils # 12.2 H (1.3-7.7) k/uL Lymphocytes # 0.3 L (1.0-4.8) k/uL Monocytes # 0.7 (0-1.0) k/uL Eosinophils # 0.1 (0-0.7) k/uL Basophils # 0.1 (0-0.2) k/uL Hypochromasia Marked Anisocytosis Slight Macrocytosis Slight PT (9.0-12.0) sec INR (<1.2) APTT (22.0-30.0) sec Sodium 138 (137-145) mmol/L Potassium 5.4 H (3.5-5.1) mmol/L Chloride 92 L (98-107) mmol/L Carbon Dioxide 35 H (22-30) mmol/L Anion Gap 11 mmol/L BUN 67 H (9-20) mg/dL Creatinine 1.22 (0.66-1.25) mg/dL Est GFR (MDRD) Af Amer >60 (>60 ml/min/1.73 sqM) Est GFR (MDRD) Non-Af 57 (>60 ml/min/1.73 sqM) Glucose 154 H (74-99) mg/dL Calcium 9.0 (8.4-10.2) mg/dL Magnesium 2.2 (1.6-2.3) mg/dL Total Bilirubin 0.7 (0.2-1.3) mg/dL AST 48 (17-59) U/L ALT 20 L (21-72) U/L Alkaline Phosphatase 93 (38-126) U/L Total Creatine Kinase 36 L (55-170) U/L CK-MB (CK-2) 2.2 (0.0-2.4) ng/mL CK-MB (CK-2) Rel Index 6.1 Troponin I <0.012 (0.000-0.034) ng/mL Total Protein 7.2 (6.3-8.2) g/dL Albumin 3.5 (3.5-5.0) g/dL 05/02/17 Range/Units 11:16 WBC (3.8-10.6) k/uL RBC (4.30-5.90) m/uL Hgb (13.0-17.5) gm/dL Hct (39.0-53.0) % MCV (80.0-100.0) fL MCH (25.0-35.0) pg MCHC (31.0-37.0) g/dL RDW (11.5-15.5) % Plt Count (150-450) k/uL Neutrophils % % Lymphocytes % % Monocytes % % Eosinophils % % Basophils % % Neutrophils # (1.3-7.7) k/uL Lymphocytes # (1.0-4.8) k/uL Monocytes # (0-1.0) k/uL Eosinophils # (0-0.7) k/uL Basophils # (0-0.2) k/uL Hypochromasia Anisocytosis Macrocytosis PT 17.5 H (9.0-12.0) sec INR 1.9 H (<1.2) APTT 28.6 (22.0-30.0) sec Sodium (137-145) mmol/L Potassium (3.5-5.1) mmol/L Chloride (98-107) mmol/L Carbon Dioxide (22-30) mmol/L Anion Gap mmol/L BUN (9-20) mg/dL Creatinine (0.66-1.25) mg/dL Est GFR (MDRD) Af Amer (>60 ml/min/1.73 sqM) Est GFR (MDRD) Non-Af (>60 ml/min/1.73 sqM) Glucose (74-99) mg/dL Calcium (8.4-10.2) mg/dL Magnesium (1.6-2.3) mg/dL Total Bilirubin (0.2-1.3) mg/dL AST (17-59) U/L ALT (21-72) U/L Alkaline Phosphatase (38-126) U/L Total Creatine Kinase (55-170) U/L CK-MB (CK-2) (0.0-2.4) ng/mL CK-MB (CK-2) Rel Index Troponin I (0.000-0.034) ng/mL Total Protein (6.3-8.2) g/dL Albumin (3.5-5.0) g/dL - Radiology Data Radiology results: image reviewed (Chest x-ray shows bilateral infiltrates and confusion. Correlate for CHF first pneumonia. Calcification pneumopericardium. Previous chest x-ray reviewed dated 04/27/2017.) Disposition Clinical Impression: Systolic CHF, acute on chronic, Chronic wound of extremity, Hypoxia Disposition: ADMITTED IP TO THIS HOSP Condition: Serious Referrals: Sana Bartlett MD [Primary Care Provider] - 1-2 days Decision Time: 13:16
[2017-05-02 12:09] LABS: Anisocytosis Slight; Basophils # (A) 0.1 k/uL (0-0.2); Basophils % (A) 0 %; Eosinophils # (A) 0.1 k/uL (0-0.7); Eosinophils % (A) 1 %; HCT 41.7 % (39.0-53.0); HGB 12.5 gm/dL (13.0-17.5); Hypochromasia Marked; Lymphocytes # (A) 0.3 k/uL (1.0-4.8); Lymphocytes % (A) 2 %; MCH 29.2 pg (25.0-35.0); MCHC 29.9 g/dL (31.0-37.0); MCV 97.6 fL (80.0-100.0); Macrocytosis Slight; Mean Platelet Volume 7.7; Monocytes # (A) 0.7 k/uL (0-1.0); Monocytes % (A) 5 %; Neutrophils # (A) 12.2 k/uL (1.3-7.7); Neutrophils % (A) 90 %; Platelet Count 280 k/uL (150-450); RBC 4.27 m/uL (4.30-5.90); RDW 17.4 % (11.5-15.5); WBC 13.5 k/uL (3.8-10.6)
[2017-05-02 12:13] LABS: INR 1.9 (<1.2); Partial Thromboplastin Time 28.6 sec (22.0-30.0); Prothrombin Time 17.5 sec (9.0-12.0)
[2017-05-02 12:16] LABS: ALT 20 U/L (21-72); AST 48 U/L (17-59); Albumin 3.5 g/dL (3.5-5.0); Alkaline Phosphatase 93 U/L (38-126); Anion Gap 11 mmol/L; Blood Urea Nitrogen 67 mg/dL (9-20); Carbon Dioxide 35 mmol/L (22-30); Chloride 92 mmol/L (98-107); Glucose 154 mg/dL (74-99); Magnesium 2.2 mg/dL (1.6-2.3); Potassium 5.4 mmol/L (3.5-5.1); Sodium 138 mmol/L (137-145); Total Bilirubin 0.7 mg/dL (0.2-1.3); Total Protein 7.2 g/dL (6.3-8.2)
[2017-05-02 12:25] LABS: Creatine Kinase 36 U/L (55-170)
[2017-05-02 12:36] LABS: Creatine Kinase MB 2.2 ng/mL (0.0-2.4); Troponin I <0.012 ng/mL (0.000-0.034)
--- NOTE | 2017-05-02 12:38 | XR ---
EXAMINATION TYPE: XR chest 2V DATE OF EXAM: 05/02/2017 COMPARISON: 04/27/2017 HISTORY: Shortness of breath FINDINGS: There are bilateral pleural effusions with cardiomegaly and bibasilar infiltrate. There is a diffuse interstitial pattern. Diffuse osteopenia noted. Arthropathy of the shoulders. Hypertrophic and degen erative change of the spine. IMPRESSION: 1. Bilateral infiltrate and pleural effusion. Correlate for CHF versus pneumonia. 2. Calcification is seen which may be along the pericardium. Correlate for calcific pericarditis.
--- NOTE | 2017-05-02 12:39 | XR ---
EXAMINATION TYPE: XR abdomen 1V DATE OF EXAM: 05/02/2017 COMPARISON: 04/24/2017 HISTORY: Pain TECHNIQUE: One view abdominal series FINDINGS: The osseous structures are intact. The bowel gas pattern is nonspecific. Bilateral pleural effusions and infiltrate seen. Hypertrophic and degenerative change of the spine. Calcification along the lisa cardium. Arthropathy of the hips. Calcifications in the pelvis appear vascular. Arthropathy of the SI joints. IMPRESSION: 1. Nonspecific abdomen. 2. Bilateral infiltrate and pleural effusion.
[2017-05-02] MEDS ORDERED: PNEUMONIA PROTOCOL UTILIZED 1 EACH MISC PO PRN (13:17)
[2017-05-02] MEDS ORDERED: ASPIRIN 325 MG TAB PO STA (13:17)
[2017-05-02] MEDS ORDERED: AZITHROMYCIN 500 MG in SODIUM CHLORIDE 0.9% 250 ML IVPB STA (13:20)
[2017-05-02] MEDS ORDERED: cefTRIAXone IN SWFI 1,000 MG/10 ML SYRINGE IVP STA (13:21)
[2017-05-02] MEDS: FUROSEMIDE 10 MG/ML 4 ML VIAL IV SCH (17:11)
[2017-05-02] MEDS: NITROGLYCERIN OINT 1 INCH/GM PACKET TOPICAL SCH (18:49)
[2017-05-03] MEDS ORDERED: WARFARIN 1.5 MG TAB PO SCH (01:00)
[2017-05-03] MEDS: FUROSEMIDE 10 MG/ML 4 ML VIAL IV SCH ×3 (01:14→12:56)
[2017-05-03] MEDS ORDERED: WARFARIN 2 MG TAB PO SCH ×2 (01:15→18:00)
[2017-05-03] MEDS ORDERED: WARFARIN 2.5 MG TAB PO SCH (01:15)
[2017-05-03] MEDS: IPRATROPIUM-ALBUTEROL 3 ML NEB INHALATION PRN ×3 (01:17→12:06)
[2017-05-03] MEDS: NITROGLYCERIN OINT 1 INCH/GM PACKET TOPICAL SCH ×2 (04:14→08:56)
[2017-05-03 06:07] LABS: Glucose,Whole Blood 143 mg/dL (75-99)
[2017-05-03 07:00] LABS: INR 1.9 (<1.2); Prothrombin Time 17.1 sec (9.0-12.0)
[2017-05-03 08:17] LABS: Albumin 3.3 g/dL (3.5-5.0); Calcium 9.1 mg/dL (8.4-10.2); Potassium 4.6 mmol/L (3.5-5.1); Total Bilirubin 0.4 mg/dL (0.2-1.3); Total Protein 6.8 g/dL (6.3-8.2)
[2017-05-03] MEDS: METOPROLOL TARTRATE 50 MG TAB PO SCH ×2 (08:55→21:13)
[2017-05-03] MEDS ORDERED: ASPIRIN 325 MG TAB PO SCH (09:00)
[2017-05-03] MEDS ORDERED: AZITHROMYCIN 500 MG TAB PO SCH (09:00)
--- NOTE | 2017-05-03 09:41 | HP ---
HISTORY AND PHYSICAL DATE OF SERVICE: 05/02/2017 CHIEF COMPLAINT: Shortness of breath. HISTORY OF PRESENT ILLNESS: This is an 82-year-old gentleman with a past medical history of multiple medical problems including history of atrial fibrillation, CAD, CHF, diabetes, hypertension, hyperlipidemia, chronic bilateral pleural effusion, is being followed by [facility] in the outpatient setting. He was recently admitted to [facility] with significant bilateral leg cellulitis and cellulitis and as well as CHF acute exacerbation with acute on chronic diastolic dysfunction. During that admission, the patient was recommended ECF rehab, which the patient declined. According to Dr. Bartlett, the patient has been on multiple occasions repeatedly in the office. Patient has very poor support at home. Currently, the patient is complaining of increasing shortness of breath for the last couple of days and also the cellulitis of the legs have also worsened. Apparently, the patient did not have any social support and patient does knocking on the neighbor's for help. The toes are also having appropriate discoloration. There is no history of fever, rigors at this time. PAST MEDICAL HISTORY: History of atrial fibrillation, CAD, CHF, diabetes, hypertension, hyperlipidemia. MEDICATIONS: Prior to admission, home medications are: 1. Coumadin 3 mg p.o. Tuesday, Tuesday, , Tuesday. 2. Coumadin 4.5 mg p.o. daily. 3. MiraLAX 17 g daily. 4. Colace 100 mg b.i.d. p.r.n. 5. Tylenol 650 q.6 p.r.n. 6. Januvia 100 mg p.o. daily. 7. Multivitamins 1 p.o. daily. 8. Lopressor 100 mg b.i.d. 9. DuoNeb q.i.d. and p.r.n. 10.Lasix 60 mg b.i.d. 11.Ferrous gluconate 320 mg p.o. b.i.d. 12.Keflex 500 mg p.o. t.i.d. ALLERGIES: CIPRO, STATINS. FAMILY HISTORY: History of diabetes mellitus and bowel disorder in the family. SOCIAL HISTORY: Previous smoking, no history of alcohol intake. REVIEW OF SYSTEMS: ENT: No diminished vision. CARDIOVASCULAR: As mentioned earlier. RESPIRATIONS: As mentioned earlier. GI: No nausea. : No dysuria. NERVOUS SYSTEM: No numbness or weakness. ALLERGY/IMMUNOLOGY: No asthma or hayfever. MUSCULOSKELETAL: As mentioned earlier. HEMATOLOGY/ONCOLOGY: No history of anemia. ENDOCRINE: No history of diabetes mellitus. CONSTITUTIONAL: As mentioned earlier. DERMATOLOGY: As mentioned earlier. RHEUMATOLOGY: As mentioned earlier. PSYCHIATRY: As mentioned earlier. PHYSICAL EXAMINATION: Alert and oriented x3. Pulse is 65, blood pressure 103/65, respiration 18, temp 97.8, pulse ox 100% on 2 L/ HEENT: Conjunctivae normal. Oral mucosa moist. Neck is no jugular venous distension. CARDIOVASCULAR: S1, S2 present. No S3, no S4. RESPIRATORY: Breath sounds diminished at bases. A few scattered rhonchi, no crackles. ABDOMEN: Soft, obese, nontender. No mass palpable. LEGS: Bilateral leg edema. Erythema and as well as a denuded skin which is leaking at this time with some toe areas present. NERVOUS SYSTEM: Higher functions as mentioned earlier, diffusely weak. LYMPHATICS: No lymph node enlargement in neck or axillae. SKIN: No ulcers, bleeding or rashes. LABS: WBC is 13.2, hemoglobin is 12.5, INR 1.9, sodium 130, potassium 5.4 and BUN 67. Please also note the patient also developed abdominal distention. Chest x-ray showed bilateral infiltration and possible CHF. ASSESSMENT: 1. Congestive heart failure acute exacerbation with acute on chronic systolic and acute on chronic diastolic dysfunction, ejection fraction 50% to 55%. I will repeat echo. 2. Bilateral pleural effusion. 3. Bilateral leg cellulitis, worsening. 4. History of noncompliance and poor social support. 5. History of ascites last status of paracentesis and 6 L of fluid taken. 6. Coronary artery disease. 7. Chronic persistent atrial fibrillation. 8. History of chronic obstructive pulmonary disease. 9. Peripheral vascular disease. 10.Bilateral leg venostasis ulcers. 11.Acute on chronic kidney disease stage III. 12.Hyperkalemia. 13.Increased WBC. RECOMMENDATION: In this 82-year-old gentleman who presented with multiple complex medical issues, will monitor the patient closely. Continue with the current management and symptomatic treatment. Otherwise at this time, I recommend continue with broad-spectrum IV antibiotics and I would recommend a Cardiology and Infectious Disease evaluation. Other than that, monitor fluid and electrolytes closely. I would also recommend a PT/OT evaluation and Social Work consultation also to evaluate the home situation with a very poor social support Local treatment and antibiotics will be initiated. Cultures will be obtained. Guarded prognosis because of multiple complex medical issues and discussed with the patient. who understands. Further recommendations to follow. MMODL / IJN: [id number] /
[2017-05-03] MEDS: cefTRIAXone IN SWFI 1,000 MG/10 ML SYRINGE IVP SCH (10:09)
--- NOTE | 2017-05-03 11:23 | P.CRDCN ---
History of Present Illness Consult date: 05/03/17 Requesting physician: Bishnu Irvin Consult reason: congestive heart failure Chief complaint: Shortness of breath History of present illness: This is an 82-year-old gentleman with history of chronic diastolic congestive heart failure, chronic persistent atrial fibrillation, diabetes, hypertension, hyperlipidemia, peripheral vascular disease, chronic venous stasis with significant lower extremity ulcerations, chronic anemia, chronic anasarca, patient also had approximately 8 L of fluid removed from his abdomen at [facility] approximately who was just recently in the hospital with a CHF exacerbation. He was discharged home on Tuesday and according to him and his family member he felt well, had a good day on Tuesday , and apparently on Tuesday became quite short of breath again. For this reason he presented back to the hospital for further evaluation. Chest x-ray on arrival here showed bilateral infiltrates and pleural effusion, correlate for CHF versus pneumonia. Abdominal x-ray was nonspecific. EKG shows atrial fibrillation with a controlled ventricular response. At pressure 157/80 with a heart rate in the low 100s to 120 range, 98% on 4 L. White blood cell count 13.5, hemoglobin 12.5, platelet count 280. INR 1.9. BUN 67 and creatinine 1.2 yesterday 71 and 1.4 this morning. Potassium 5. Admission, 4.6 This Morning. Troponin Negative. At the time of my examination this morning, patient still appears quite short of breath while speaking, he has significant open ulcerated areas on his bilateral lower extremities for which dressings are being applied. Past Medical History Past Medical History: Atrial Fibrillation, Coronary Artery Disease (CAD), Heart Failure, Diabetes Mellitus, Hyperlipidemia, Hypertension Additional Past Medical History / Comment(s): Chronic bilateral pleural effusions, chronic atrial fibrillation, obesity, peripheral vascular disease, hypertension, hyperlipidemia, chronic renal failure, coronary artery disease, chronic anemia, large umbilical hernia, impaired hearing/deafness, Congestion heart failure with diastolic dysfunction chronic lower extremity edema and chronic venous ulcers of the lower extremities bilaterally with previous infections with Pseudomonas, MSSA and strep group B, peripheral vascular disease , recurrent cellulitis and superficial ulceration of the lower extremities bilaterally History of Any Multi-Drug Resistant Organisms: None Reported Date of last positivie culture/infection: None MDRO Source:: None Past Surgical History: Heart Catheterization, Hernia Repair Additional Past Surgical History / Comment(s): COLONOSCOPY 3, right inguinal hernia repair, bilateral cataract removal and lens implants, NASAL FRACTURE Past Anesthesia/Blood Transfusion Reactions: No Reported Reaction Smoking Status: Former smoker - Past Family History Mother Family Medical History: Diabetes Mellitus Father Family Medical History: Prostate Disorder Additional Family Medical History / Comment(s): bowel disorder Medications and Allergies Home Medications Medication Instructions Recorded Confirmed Type sitaGLIPtin [Januvia] 100 mg PO DAILY 09/15/15 05/02/17 History Multivitamins, Thera [Multivitamin 1 tab PO DAILY 02/09/17 05/02/17 History (formulary)] Polyethylene Glycol 3350 [Miralax] 17 gm PO DAILY PRN 02/09/17 05/02/17 History Ferrous Gluconate 324 mg PO BID 03/16/17 05/02/17 History Warfarin [Coumadin] 3 mg PO SUTUTHSA 03/16/17 05/02/17 History Acetaminophen Tab [Tylenol] 650 mg PO Q6HR PRN tab 03/25/17 05/02/17 Rx Ipratropium-Albuterol Nebulize 3 ml INHALATION RT-QID #120 03/25/17 05/02/17 Rx [Duoneb 0.5 mg-3 mg/3 ml Soln] ampul.neb Metoprolol Tartrate [Lopressor] 100 mg PO BID #120 tab 03/25/17 05/02/17 Rx Docusate [Colace] 100 mg PO BID PRN 04/24/17 05/02/17 History Warfarin Sodium [Coumadin] 4.5 mg PO DAILY 04/24/17 05/02/17 History Cephalexin [Keflex] 500 mg PO TID #21 cap 04/29/17 05/02/17 Rx Furosemide [Lasix] 60 mg PO BID@0900,1600 #180 tab 04/29/17 05/02/17 Rx Allergies Allergy/AdvReac Type Severity Reaction Status Date / Time ciprofloxacin [From Cipro] Allergy Rash/Hives Verified 05/02/17 11:22 Fmadevn-[id number]-Aex Reductase Allergy Rash/Hives Verified 05/02/17 11:22 Inhibitor Physical Exam Vitals: Vital Signs Temp Pulse Pulse Resp BP BP Pulse Ox 05/03/17 08:49 120 H 05/03/17 08:37 112 H 05/03/17 08:00 96.8 F L 106 H 22 157/84 98 05/03/17 04:37 96.8 F L 106 H 19 111/77 99 05/03/17 03:00 100 20 95/55 97 05/03/17 01:55 98 20 100/60 97 05/03/17 01:33 110 H 22 105/55 99 05/03/17 01:26 112 H 05/03/17 01:17 101 H 05/03/17 00:30 67 26 H 110/70 96 05/02/17 23:33 58 L 25 H 116/67 98 05/02/17 22:19 65 18 103/64 99 05/02/17 20:27 97.8 F 69 18 106/68 100 05/02/17 18:47 98.0 F 72 24 109/77 100 05/02/17 17:22 78 24 107/70 99 05/02/17 17:17 98.7 F 85 20 106/73 100 05/02/17 15:00 81 26 H 118/68 100 05/02/17 13:56 87 24 107/70 98 05/02/17 13:01 93 20 99/64 100 05/02/17 11:59 20 05/02/17 11:44 86 05/02/17 11:30 98 Intake and Output 05/02/17 05/03/17 05/03/17 22:59 06:59 14:59 Intake Total 360 Output Total 300 420 Balance -300 -420 360 Intake: Oral 360 Output: Urine 300 420 Other: Voiding Method Urinal Urinal # Voids 1 Weight 104.326 kg PHYSICAL EXAMINATION: HEENT: Head is atraumatic, normocephalic. Pupils equal, round. Neck is supple. There is no elevated jugular venous pressure. HEART EXAMINATION: Heart S1 and S2 irregularly irregular a systolic murmur is heard CHEST EXAMINATION: Lungs reveal scattered coarse rhonchi and mild wheezing with diminished air entry to the bases. ABDOMEN: Soft, nontender. Bowel sounds are heard. No organomegaly noted. EXTREMITIES:[ 1+ peripheral pulses with 2+ evidence of peripheral edema , evidence of chronic venous system and multiple open ulcerated areas on bilateral lower extremities NEUROLOGIC patient is awake, alert and oriented -3. . Results 05/02/17 11:16 05/03/17 06:37 Cardiac Enzymes 05/02/17 05/02/17 05/03/17 Range/Units 11:16 11:16 06:37 AST 48 29 (17-59) U/L CK-MB (CK-2) 2.2 (0.0-2.4) ng/mL Troponin I <0.012 (0.000-0.034) ng/mL Coagulation 18 05/03/17 Range/Units 11:16 06:37 PT 17.5 H 17.1 H (9.0-12.0) sec APTT 28.6 (22.0-30.0) sec CBC 05/02/17 Range/Units 11:16 WBC 13.5 H (3.8-10.6) k/uL RBC 4.27 L (4.30-5.90) m/uL Hgb 12.5 L (13.0-17.5) gm/dL Hct 41.7 (39.0-53.0) % Plt Count 280 (150-450) k/uL Comprehensive Metabolic Panel 05/02/17 05/03/17 Range/Units 11:16 06:37 Sodium 138 141 (137-145) mmol/L Potassium 5.4 H 4.6 (3.5-5.1) mmol/L Chloride 92 L 93 L (98-107) mmol/L Carbon Dioxide 35 H 37 H (22-30) mmol/L BUN 67 H 71 H (9-20) mg/dL Creatinine 1.22 1.46 H (0.66-1.25) mg/dL Glucose 154 H 147 H (74-99) mg/dL Calcium 9.0 9.1 (8.4-10.2) mg/dL AST 48 29 (17-59) U/L ALT 20 L 26 (21-72) U/L Alkaline Phosphatase 93 97 (38-126) U/L Total Protein 7.2 6.8 (6.3-8.2) g/dL Albumin 3.5 3.3 L (3.5-5.0) g/dL Current Medications Generic Name Dose Route Start Last Admin Trade Name Freq PRN Reason Stop Dose Admin Albuterol/Ipratropium 3 ml 05/03/17 00:59 05/03/17 08:37 Duoneb 0.5 Mg-3 Mg/3 Ml Soln INHALATION 3 ml RT-QID PRN Administration Shortness Of Breath Or Wheezing Aspirin 325 mg 05/03/17 09:00 05/03/17 08:55 Aspirin PO 325 mg DAILY FAM Administration Azithromycin 500 mg 05/03/17 09:00 05/03/17 08:55 Zithromax PO 500 mg DAILY FAM Administration Ceftriaxone Sodium 1,000 mg 05/03/17 09:00 05/03/17 10:09 Rocephin IVP 05/06/17 09:01 1,000 mg Q24HR FAM Administration Furosemide 40 mg 05/02/17 14:00 05/03/17 05:59 Lasix IV 40 mg Q8H FAM Administration Metoprolol Tartrate 100 mg 05/03/17 09:00 05/03/17 08:55 Lopressor PO 100 mg BID FAM Administration Miscellaneous Information 1 each 05/02/17 13:17 Pneumonia Protocol Utilized PO ONCE PRN Per Protocol Nitroglycerin 1 inch 05/02/17 18:00 05/03/17 08:56 Nitro-Bid Oint TOPICAL 1 inch QID FAM Administration Warfarin Sodium 2.5 mg 05/03/17 01:15 05/03/17 01:12 Coumadin PO 2.5 mg MoWeFr@1800 FAM Administration Warfarin Sodium 2 mg 05/03/17 01:15 05/03/17 01:13 Coumadin PO 2 mg MoWeFr@1800 FAM Administration Intake and Output 05/02/17 05/03/17 05/03/17 22:59 06:59 14:59 Intake Total 360 Output Total 300 420 Balance -300 -420 360 Intake: Oral 360 Output: Urine 300 420 Other: Voiding Method Urinal Urinal # Voids 1 Weight 104.326 kg 05/02/17 11:16 05/03/17 06:37 EKG Interpretations (text) EKG shows atrial fibrillation with a controlled ventricular response Assessment and Plan Plan: Assessment and plan #1 diastolic congestive heart failure acute on chronic. Cardiogram with Doppler study performed on the second of this month revealed an ejection fraction of 50-55%. #2 chronic persistent atrial fibrillation, on Coumadin for anticoagulation, subtherapeutic INR #3 hypertension #4 hyperlipidemia #5 severe peripheral vascular disease with significant bilateral lower extremity ulcerations #6 chronic anasarca #7 chronic anemia #8 mild renal insufficiency #9 diabetes Plan We'll continue current dose of IV Lasix. Decrease aspirin to 81 mg daily, continue metoprolol, discontinue Nitropaste. Patient is currently not on a statin because of ALLERGY to statins. In addition of SWATHI inhibitor. Continue to monitor intake with daily weights and daily lytes BUN and creatinine. Further recommendations to follow. DNP note has been reviewed, I agree with a documented findings and plan of care. Patient was seen and examined.
[2017-05-03 12:29] LABS: Glucose,Whole Blood 208 mg/dL (75-99)
[2017-05-03 13:22] VITALS: BMI 33.0
[2017-05-03] MEDS ORDERED: DOCUSATE 100 MG CAP PO PRN (14:38)
[2017-05-03] MEDS ORDERED: POLYETHYLENE GLYCOL 3350 17 GM POWD.PACK PO PRN (14:38)
--- NOTE | 2017-05-03 15:18 | XR ---
EXAMINATION TYPE: XR chest 2V DATE OF EXAM: 05/03/2017 COMPARISON: 05/02/2017 INDICATION: Previous abnormal chest, pneumonia TECHNIQUE: Frontal and lateral views of the chest are obtained. FINDINGS: The heart size is mildly prominent. The pulmonary vasculature is prominent. There is a small to moderate right pleural effusion. Small left pleural effusion is present.. IMPRESSION: 1. Moderate right and small left pleural effusion. 2. Exam is stable from comparison.
[2017-05-03] MEDS: IPRATROPIUM-ALBUTEROL 3 ML NEB INHALATION SCH ×2 (15:32→19:36)
--- NOTE | 2017-05-03 16:08 | PN ---
PROGRESS NOTE DATE OF SERVICE: 05/03/2017 This 82-year-old gentleman who was admitted with significant shortness of breath also had bilateral pleural effusion, also bilateral leg cellulitis also. The patient had very poor support necessitating almost daily visits or call to the primary care doctor's office. The patient was recommended ECF rehab. Last time was the patient refused. Currently psychotherapist social worker is working towards the patient. Patient is extremely weak and shortness of breath at this time. PAST MEDICAL HISTORY: Reviewed. REVIEW OF SYSTEMS: Cardiovascular as mentioned. Respiratory as mentioned. GI no nausea or vomiting. : No dysuria. Central nervous system: No numbness, weakness. CURRENT MEDICATIONS ARE: Reviewed and include: 1. DuoNeb q.i.d. and p.r.n. 2. Zithromax 500 mg p.o. daily. 3. Rocephin 1 g daily. 4. Lasix 40 mg IV q.8h. 5. Tradjenta 5 mg b.i.d. 6. Lopressor 100 mg p.o. b.i.d. 7. Coumadin 2.5 mg Tuesday, Tuesday and Tuesday and 2 mg Tuesday, Tuesday and Tuesday. PHYSICAL EXAM: Patient is alert, oriented x3. Pulse is 94, blood pressure 150/60, respiratory 22, temperature 97 degrees, pulse ox 94% on 4 L. HEENT is conjunctivae normal. Neck is no jugular venous distention. No carotid bruit. Cardiovascular: S1, S2 muffled. Respirations: Breath sounds diminished in the bases. Scattered rhonchi and crackles. ABDOMEN: Soft, obese, nontender. Legs bilateral leg cellulitis and erythema, weeping and as well as significant cellulitis also present. Nervous system: Diffusely weak. LABS: Creatinine 1.46 and sodium is 135. ASSESSMENT: 1. Congestive heart failure acute exacerbation with acute on chronic systolic dysfunction, ejection fraction 50-55%. 2. Bilateral pleural effusion. 3. Bilateral leg cellulitis, worsening. 4. History of noncompliance and poor social support. 5. History of ascites on the last paracentesis about 6 L fluid taken. 6. History of coronary artery disease. 7. Chronic persistent atrial fibrillation. 8. Chronic obstructive pulmonary disease. 9. Peripheral vascular disease. 10.Bilateral leg venous stasis ulcers. 11.Acute on chronic kidney disease stage 3. 12.Hyperkalemia. 13.Increased WBC. RECOMMENDATIONS AND DISCUSSION: Recommend to continue current medications, management and symptomatic treatment. Otherwise, at this time, I would cut down the dose of Lasix and continue the rest of the medications. Continue with antibiotics. Infectious Disease and cardiology evaluation, PT/OT evaluation. Discussed with ed case manager and I would recommend possible ECF rehab. Guarded prognosis because of multiple complex medical issues. Further recommendations to follow. See orders for further details. MMODL / IJN: [id number] /
[2017-05-03 16:49] LABS: Glucose,Whole Blood 166 mg/dL (75-99)
[2017-05-03] MEDS: INSULIN ASPART 100 UNIT/ML 1 ML 10 ML VIAL SQ SCH ×2 (17:14→21:13)
[2017-05-03] MEDS ORDERED: WARFARIN 3 MG TAB PO SCH (18:00)
[2017-05-03 20:47] LABS: Glucose,Whole Blood 145 mg/dL (75-99)
[2017-05-03 22:11] LABS: Hemoglobin A1C 6.9 % (4.0-6.0)
[2017-05-04 05:54] LABS: Glucose,Whole Blood 134 mg/dL (75-99)
[2017-05-04] MEDS: INSULIN ASPART 100 UNIT/ML 1 ML 10 ML VIAL SQ SCH ×4 (05:54→21:33)
[2017-05-04 06:00] LABS: Anisocytosis Slight; Basophils % (A) 0 %; Eosinophils # (A) 0.2 k/uL (0-0.7); Eosinophils % (A) 2 %; HCT 38.9 % (39.0-53.0); HGB 11.4 gm/dL (13.0-17.5); Hypochromasia Marked; Lymphocytes # (A) 0.3 k/uL (1.0-4.8); Lymphocytes % (A) 3 %; MCH 29.2 pg (25.0-35.0); MCHC 29.2 g/dL (31.0-37.0); MCV 100.1 fL (80.0-100.0); Macrocytosis Slight; Mean Platelet Volume 7.4; Monocytes # (A) 0.7 k/uL (0-1.0); Monocytes % (A) 6 %; Neutrophils # (A) 9.7 k/uL (1.3-7.7); Neutrophils % (A) 87 %; Platelet Count 256 k/uL (150-450); RBC 3.88 m/uL (4.30-5.90); RDW 17.8 % (11.5-15.5); WBC 11.1 k/uL (3.8-10.6)
[2017-05-04 06:06] LABS: INR 2.2 (<1.2); Prothrombin Time 20.2 sec (9.0-12.0)
[2017-05-04 06:08] LABS: Albumin 3.2 g/dL (3.5-5.0); Calcium 8.9 mg/dL (8.4-10.2); Potassium 4.9 mmol/L (3.5-5.1); Total Bilirubin 0.4 mg/dL (0.2-1.3); Total Protein 6.7 g/dL (6.3-8.2)
[2017-05-04] MEDS: LINAGLIPTIN 5 MG TABLET PO SCH (08:13)
[2017-05-04] MEDS: MULTIVITAMINS, THERA 1 EACH TAB PO SCH (08:13)
[2017-05-04] MEDS: FERROUS SULFATE 325 MG TAB PO SCH (08:13)
[2017-05-04] MEDS: cefTRIAXone IN SWFI 1,000 MG/10 ML SYRINGE IVP SCH (08:13)
[2017-05-04] MEDS: METOPROLOL TARTRATE 50 MG TAB PO SCH ×2 (08:13→21:35)
--- NOTE | 2017-05-04 08:15 | CONS ---
CONSULTATION DATE OF SERVICE: 05/03/2017 REASON FOR CONSULTATION: Bilateral extremity venostasis ulcer and cellulitis. HISTORY OF PRESENT ILLNESS: The patient is 82-year-old, male, who did have a recurrent admission to this facility for increasing shortness of breath. Patient did have a bilateral lower extremity venostasis ulcer and secondary cellulitis which was recently treated at this facility with Aquacel Silver dressing, antibiotic in the form of cefazolin and was discharged on oral Keflex. Cultures at that time grew MSSA. Patient presents to the ER yesterday with the chief complaints of increasing shortness of breath and difficulty with breathing for the last 2 days. Patient denies any significant chest pain. He did have some mild cough, but not bringing up any sputum. No abdominal pain. No nausea, no vomiting. No diarrhea. Denies any worsening pain in the bilateral lower extremity. The patient has been evaluated by the ER physician. On arrival to the ER, the patient did have a chest x-ray showing bilateral infiltrate and pleural effusion correlated for atelectasis versus pneumonia. Patient with no fever. His white count was slightly elevated at 13.5. Patient has been started on Rocephin and Zithromax, admitted to hospital for possible pneumonia as well as lower extremity cellulitis. ID was consulted for further recommendation regarding antibiotic therapy as well as care of the wound in the legs. REVIEW OF SYSTEMS: CONSTITUTIONAL: Positive for weakness, no high-grade fever. EYES: No complaint. ENT: No complaint. RESPIRATORY: As per HPI. CARDIOVASCULAR: As per HPI. GENITOURINARY: No complaint. GASTROINTESTINAL: No complaint. MUSCULOSKELETAL: No complaint. INTEGUMENTARY: As per HPI. PSYCHOLOGICAL: No complaint. ENDOCRINE: No complaint. NEUROLOGICAL: No complaint. PAST MEDICAL HISTORY: Significant for atrial fibrillation, coronary artery disease, heart failure, diabetes mellitus, hypertension, hyperlipidemia, chronic lower extremity stasis ulcer and cellulitis. PAST SURGICAL HISTORY: Right inguinal hernia repair, bilateral cataract surgery with implants, heart catheterization, colonoscopy. SOCIAL HISTORY: Remote history of smoking. No drinking or drug use. FAMILY HISTORY: Father history of prostate cancer. Mother history of diabetes. ALLERGIES: CIPROFLOXACIN and STATINS. MEDICATIONS: Currently include the patient is on Tylenol, DuoNeb, Zithromax Rocephin, Colace , iron sulfate, Lasix, NovoLog, Tradjenta, Lopressor, Theragran, MiraLAX, Coumadin. PHYSICAL EXAMINATION: Blood pressure is 112/65 with a pulse of 105, temperature of 97. He is 95% on 4 L nasal cannula. Gemeral description is an elderly male up in the chair, in no distress. No tachypnea or accessory muscle for respiration use. HEENT EXAMINATION: Shows slight pallor. No scleral icterus. Oral mucosa is dry and no thrush, neck trachea central no thyromegaly. Lungs unlabored breathing, decreased breath sounds in the bases no wheeze heart S1, S2. Regular rate and rhythm. ABDOMEN: Soft, no tenderness. Slight distention. No guarding. No rigidity. Bilateral lower extremity with some superficial ulceration. No definite cellulitis was noticed. Some maceration from the fluid. NEUROLOGICAL: Patient is awake, alert, oriented x3. Mood and affect normal. LABS: Hemoglobin is 12.5 with a white count of 13.5. BUN of 31, creatinine 1.460, INR is 1.9. Chest report as mentioned above. DIAGNOSTIC IMPRESSION: Patient with bilateral lower extremity venostasis ulcer with no significant cellulitis noticed on clinical examination. Patient's main symptoms has been increasing shortness of breath, more likely from fluid overload rather than from pneumonia as the patient did not have significant cough or sputum production and no fever. He did have some superficial cultures obtained from the leg wound which are currently showing a gram- negative diagnostic importance of these cultured are very clear patient with bilateral lower extremities venous stasis ulcer with minimal to no cellulitis number recommend predominantly local wound care along with diuretic therapy to confirm all of the excessive fluid. PLAN: 1. We will apply Aquacel Silver dressing to the open area should be applied dry followed by an Bill wrap lightly. 2. Continue short course of IV Rocephin 1 g daily. 3. Discontinue Zithromax. 4. Depending upon his clinical response, will adjust his medications further if needed. Thank you for this consultation. Will follow this patient along with you. MMODL / IJN: [id number] / MTDD
[2017-05-04] MEDS ORDERED: FUROSEMIDE 10 MG/ML 4 ML VIAL IV SCH (09:00)
[2017-05-04] MEDS ORDERED: ASPIRIN 81 MG PO SCH (09:00)
[2017-05-04] MEDS: IPRATROPIUM-ALBUTEROL 3 ML NEB INHALATION SCH ×4 (09:10→19:53)
[2017-05-04 11:40] LABS: Glucose,Whole Blood 179 mg/dL (75-99)
--- NOTE | 2017-05-04 15:13 | P.PN ---
Subjective Progress Note Date: 05/04/17 Principal diagnosis: Shortness of breath This is an 82-year-old gentleman with history of chronic diastolic congestive heart failure, chronic persistent atrial fibrillation, diabetes, hypertension, hyperlipidemia, peripheral vascular disease, chronic venous stasis with significant lower extremity ulcerations, chronic anemia, chronic anasarca, patient also had approximately 8 L of fluid removed from his abdomen at [facility] approximately who was just recently in the hospital with a CHF exacerbation. He was discharged home on Tuesday and according to him and his family member he felt well, had a good day on Tuesday , and apparently on Tuesday became quite short of breath again. For this reason he presented back to the hospital for further evaluation. Chest x-ray on arrival here showed bilateral infiltrates and pleural effusion, correlate for CHF versus pneumonia. Abdominal x-ray was nonspecific. EKG shows atrial fibrillation with a controlled ventricular response. At pressure 157/80 with a heart rate in the low 100s to 120 range, 98% on 4 L. White blood cell count 13.5, hemoglobin 12.5, platelet count 280. INR 1.9. BUN 67 and creatinine 1.2 yesterday 71 and 1.4 this morning. Potassium 5. Admission, 4.6 This Morning. Troponin Negative. At the time of my examination this morning, patient still appears quite short of breath while speaking, he has significant open ulcerated areas on his bilateral lower extremities for which dressings are being applied. 05/04/2017 Patient was seen and examined this morning, quite short of breath, even while sitting up in chair. States that he feels significantly worse this morning. His weight is documented to be up this morning. WBC 11.1, hemoglobin 11.4, platelet count 256. INR 2.2, BUN 73, creatinine 1.4. We will discontinue the IV push Lasix, start the patient on Lasix drip along with dobutamine, monitor intake and output along with daily weights closely. Patient has been encouraged to consider transfer to rehab following this hospital stay, prognosis overall guarded. Objective - Vital Signs Vital signs: Vital Signs Temp 97.4 F L 05/04/17 08:27 Pulse 108 H 05/04/17 13:09 Resp 24 05/04/17 12:00 BP 111/79 05/04/17 12:00 Pulse Ox 100 05/04/17 12:00 Intake & Output 05/03/17 05/04/17 05/04/17 18:59 06:59 18:59 Intake Total 857 360 Output Total 440 250 Balance 857 -440 110 Weight 104.326 kg 107.3 kg Intake: IV 20 saline flush 20 Oral 837 360 Output: Urine 440 250 Other: Voiding Method Urinal Urinal Urinal # Voids 1 1 - Exam PHYSICAL EXAMINATION: HEENT: Head is atraumatic, normocephalic. Pupils equal, round. Neck is supple. There is no elevated jugular venous pressure. HEART EXAMINATION: Heart S1 and S2 irregularly irregular a systolic murmur is heard CHEST EXAMINATION: Lungs reveal scattered coarse rhonchi and mild wheezing with diminished air entry to the bases. ABDOMEN: Soft, nontender. Bowel sounds are heard. No organomegaly noted. EXTREMITIES:[ 1+ peripheral pulses with 2+ evidence of peripheral edema , evidence of chronic venous system and multiple open ulcerated areas on bilateral lower extremities NEUROLOGIC patient is awake, alert and oriented -3. . - Labs CBC & Chem 7: 05/04/17 05:30 05/04/17 05:30 Labs: Abnormal Lab Results - Last 24 Hours (Table) 05/03/17 05/03/17 05/03/17 Range/Units 06:37 16:47 20:46 WBC (3.8-10.6) k/uL RBC (4.30-5.90) m/uL Hgb (13.0-17.5) gm/dL Hct (39.0-53.0) % MCV (80.0-100.0) fL MCHC (31.0-37.0) g/dL RDW (11.5-15.5) % Neutrophils # (1.3-7.7) k/uL Lymphocytes # (1.0-4.8) k/uL PT (9.0-12.0) sec INR (<1.2) Chloride (98-107) mmol/L Carbon Dioxide (22-30) mmol/L BUN (9-20) mg/dL Creatinine (0.66-1.25) mg/dL Glucose (74-99) mg/dL POC Glucose (mg/dL) 166 H 145 H (75-99) mg/dL Hemoglobin A1c 6.9 H (4.0-6.0) % Albumin (3.5-5.0) g/dL 05/04/17 05/04/17 05/04/17 Range/Units 05:30 05:30 05:30 WBC 11.1 H (3.8-10.6) k/uL RBC 3.88 L (4.30-5.90) m/uL Hgb 11.4 L (13.0-17.5) gm/dL Hct 38.9 L (39.0-53.0) % MCV 100.1 H (80.0-100.0) fL MCHC 29.2 L (31.0-37.0) g/dL RDW 17.8 H (11.5-15.5) % Neutrophils # 9.7 H (1.3-7.7) k/uL Lymphocytes # 0.3 L (1.0-4.8) k/uL PT 20.2 H (9.0-12.0) sec INR 2.2 H (<1.2) Chloride 93 L (98-107) mmol/L Carbon Dioxide 39 H (22-30) mmol/L BUN 73 H (9-20) mg/dL Creatinine 1.41 H (0.66-1.25) mg/dL Glucose 142 H (74-99) mg/dL POC Glucose (mg/dL) (75-99) mg/dL Hemoglobin A1c (4.0-6.0) % Albumin 3.2 L (3.5-5.0) g/dL 05/04/17 05/04/17 Range/Units 05:52 11:39 WBC (3.8-10.6) k/uL RBC (4.30-5.90) m/uL Hgb (13.0-17.5) gm/dL Hct (39.0-53.0) % MCV (80.0-100.0) fL MCHC (31.0-37.0) g/dL RDW (11.5-15.5) % Neutrophils # (1.3-7.7) k/uL Lymphocytes # (1.0-4.8) k/uL PT (9.0-12.0) sec INR (<1.2) Chloride (98-107) mmol/L Carbon Dioxide (22-30) mmol/L BUN (9-20) mg/dL Creatinine (0.66-1.25) mg/dL Glucose (74-99) mg/dL POC Glucose (mg/dL) 134 H 179 H (75-99) mg/dL Hemoglobin A1c (4.0-6.0) % Albumin (3.5-5.0) g/dL Microbiology - Last 24 Hours (Table) 05/02/17 11:16 Blood Culture - Preliminary Blood No Growth after 48 hours 05/02/17 11:00 Gram Stain - Final Leg - Right Wound Culture - Final Pseudomonas aeruginosa 05/03/17 16:45 Urine Culture - Preliminary Urine,Clean Catch Assessment and Plan Plan: Assessment and plan #1 diastolic congestive heart failure acute on chronic. Cardiogram with Doppler study performed on the second of this month revealed an ejection fraction of 50-55%. #2 chronic persistent atrial fibrillation, on Coumadin for anticoagulation, subtherapeutic INR #3 hypertension #4 hyperlipidemia #5 severe peripheral vascular disease with significant bilateral lower extremity ulcerations #6 chronic anasarca #7 chronic anemia #8 mild renal insufficiency #9 diabetes Plan We will discontinue the IV push Lasix and start the patient on Lasix drip 10 mg per hour, we will also add dobutamine to his medication regime.. Continue to monitor intake with daily weights and daily lytes BUN and creatinine. Further recommendations to follow. DNP note has been reviewed, I agree with a documented findings and plan of care. Patient was seen and examined.
[2017-05-04] MEDS: DOBUTamine DRIP 500 MG in DEXTROSE/WATER 1 250ML.BAG IV SCH (16:06)
[2017-05-04] MEDS: FUROSEMIDE 250 MG in SODIUM CHLORIDE 0.9% 225 ML IVP SCH (16:07)
[2017-05-04 16:22] LABS: Glucose,Whole Blood 146 mg/dL (75-99)
[2017-05-04] MEDS: WARFARIN 2 MG TAB PO SCH (17:13)
--- NOTE | 2017-05-04 17:53 | P.PN ---
Subjective Patient was admitted for can start failure chronic diastolic dysfunction with acute exacerbation and patient is quite worked up today quite short of breath patient was started on IV Lasix drip and dopamine drip by cardiology patient appears to have significant pulmonary edema with elevated JVD appears to be in severe heart failure exacerbation is comparing of severe shortness of breath patient was unable to provide me any other review of systems because of his clinical condition patient doesn't look well at all Objective - Vital Signs Vital signs: Vital Signs Temp 97.6 F 05/04/17 16:00 Pulse 98 05/04/17 16:09 Resp 24 05/04/17 16:00 BP 112/75 05/04/17 16:00 Pulse Ox 98 05/04/17 16:00 Intake & Output 05/03/17 05/04/17 05/04/17 18:59 06:59 18:59 Intake Total 857 720 Output Total 440 250 Balance 857 -440 470 Weight 104.326 kg 107.3 kg Intake: IV 20 saline flush 20 Oral 837 720 Output: Urine 440 250 Other: Voiding Method Urinal Urinal Urinal # Voids 1 1 - Exam PHYSICAL EXAMINATION: GENERAL: The patient is alert and oriented x3, is in significant respiratory distress HEENT: Pupils are round and equally reacting to light. EOMI. No scleral icterus. No conjunctival pallor. Normocephalic, atraumatic. No pharyngeal erythema. No thyromegaly. CARDIOVASCULAR: S1 and S2 present. Does have elevated JVD and probably a systolic murmur in aortic area PULMONARY: Chest is clear to auscultation, significant wheezing was appreciated appears to have cardiac asthma course rhonchi. ABDOMEN: Soft, nontender, nondistended, normoactive bowel sounds. No palpable organomegaly. MUSCULOSKELETAL: No joint swelling or deformity. EXTREMITIES: No cyanosis, clubbing, or pedal edema. NEUROLOGICAL: Gross neurological examination did not reveal any focal deficits. SKIN: No rashes. - Labs CBC & Chem 7: 05/04/17 05:30 05/04/17 05:30 Labs: Abnormal Lab Results - Last 24 Hours (Table) 05/03/17 05/03/17 05/04/17 Range/Units 06:37 20:46 05:30 WBC 11.1 H (3.8-10.6) k/uL RBC 3.88 L (4.30-5.90) m/uL Hgb 11.4 L (13.0-17.5) gm/dL Hct 38.9 L (39.0-53.0) % MCV 100.1 H (80.0-100.0) fL MCHC 29.2 L (31.0-37.0) g/dL RDW 17.8 H (11.5-15.5) % Neutrophils # 9.7 H (1.3-7.7) k/uL Lymphocytes # 0.3 L (1.0-4.8) k/uL PT (9.0-12.0) sec INR (<1.2) Chloride (98-107) mmol/L Carbon Dioxide (22-30) mmol/L BUN (9-20) mg/dL Creatinine (0.66-1.25) mg/dL Glucose (74-99) mg/dL POC Glucose (mg/dL) 145 H (75-99) mg/dL Hemoglobin A1c 6.9 H (4.0-6.0) % Albumin (3.5-5.0) g/dL 05/04/17 05/04/17 05/04/17 Range/Units 05:30 05:30 05:52 WBC (3.8-10.6) k/uL RBC (4.30-5.90) m/uL Hgb (13.0-17.5) gm/dL Hct (39.0-53.0) % MCV (80.0-100.0) fL MCHC (31.0-37.0) g/dL RDW (11.5-15.5) % Neutrophils # (1.3-7.7) k/uL Lymphocytes # (1.0-4.8) k/uL PT 20.2 H (9.0-12.0) sec INR 2.2 H (<1.2) Chloride 93 L (98-107) mmol/L Carbon Dioxide 39 H (22-30) mmol/L BUN 73 H (9-20) mg/dL Creatinine 1.41 H (0.66-1.25) mg/dL Glucose 142 H (74-99) mg/dL POC Glucose (mg/dL) 134 H (75-99) mg/dL Hemoglobin A1c (4.0-6.0) % Albumin 3.2 L (3.5-5.0) g/dL 05/04/17 05/04/17 Range/Units 11:39 16:19 WBC (3.8-10.6) k/uL RBC (4.30-5.90) m/uL Hgb (13.0-17.5) gm/dL Hct (39.0-53.0) % MCV (80.0-100.0) fL MCHC (31.0-37.0) g/dL RDW (11.5-15.5) % Neutrophils # (1.3-7.7) k/uL Lymphocytes # (1.0-4.8) k/uL PT (9.0-12.0) sec INR (<1.2) Chloride (98-107) mmol/L Carbon Dioxide (22-30) mmol/L BUN (9-20) mg/dL Creatinine (0.66-1.25) mg/dL Glucose (74-99) mg/dL POC Glucose (mg/dL) 179 H 146 H (75-99) mg/dL Hemoglobin A1c (4.0-6.0) % Albumin (3.5-5.0) g/dL Microbiology - Last 24 Hours (Table) 05/02/17 11:16 Blood Culture - Preliminary Blood No Growth after 48 hours 05/02/17 11:00 Gram Stain - Final Leg - Right Wound Culture - Final Pseudomonas aeruginosa 05/03/17 16:45 Urine Culture - Preliminary Urine,Clean Catch Assessment and Plan Plan: #1 diastolic congestive heart failure acute on chronic. Cardiogram with Doppler study performed on the second of this month revealed an ejection fraction of 50-55%. Patient was started on dobutamine drip and IV Lasix drip close kidney function monitoring #2 chronic persistent atrial fibrillation, on Coumadin for anticoagulation, patient's INR is therapeutic today patient will be resumed on 2 mg of Coumadin daily with repeat INR tomorrow #3 hypertension #4 hyperlipidemia #5 severe peripheral vascular disease with significant bilateral lower extremity ulcerations, infectious disease evaluated the patient and patient is being treated with broad-spectrum antibiotics for cellulitis and infected ulcers of the bilateral lower extremities. Patient's wound cultures are positive for Pseudomonas aeruginosa #6 chronic anasarca #7 chronic anemia #8 mild renal insufficiency #9 diabetes
[2017-05-04 20:57] LABS: Glucose,Whole Blood 180 mg/dL (75-99)
[2017-05-04] MEDS: ACETAMINOPHEN TAB 325 MG TAB PO PRN (21:34)
--- NOTE | 2017-05-04 21:54 | PN ---
PROGRESS NOTE DATE OF SERVICE: 05/04/2017 REASON FOR FOLLOWUP: Bilateral severe venous stasis ulcer and cellulitis. INTERVAL HISTORY: The patient is afebrile. He breathing is slightly improved compared to yesterday. Denies having any chest pain. He did have some cough, not bringing up any sputum. No abdominal pain or any pain in the lower extremity. EXAMINATION: Blood pressure is 112/75 with a pulse of 94, temperature of 97.6. He is 98% on 4L nasal cannula. General description is an elderly male up in the bed in no distress. RESPIRATORY SYSTEM: Unlabored breathing. Some coarse breath sounds at the base. No wheeze. HEART: S1, S2. Regular rate and rhythm. ABDOMEN: Soft. No tenderness. LEGS: Currently dressed up. No drainage on the dressing. LABS: Hemoglobin is 11.4, white count of 11.1 with a BUN of 473, creatinine 1.41. Wound culture with Pseudomonas aeruginosa. DIAGNOSTIC IMPRESSION AND PLAN: Patient with bilateral lower extremity venous stasis ulcer with cellulitis. Culture positive for Pseudomonas. Antibiotic has been adjusted to Fortaz. That will be continued. Rocephin will be discontinued. Local wound care with Aquacel Silver dressing followed by Bill wrap for compression. Continue supportive care. MMODL / IJN: [id number] /
[2017-05-05 05:53] LABS: Glucose,Whole Blood 130 mg/dL (75-99)
[2017-05-05] MEDS: INSULIN ASPART 100 UNIT/ML 1 ML 10 ML VIAL SQ SCH ×4 (05:56→21:03)
[2017-05-05 06:49] LABS: Anisocytosis Slight; Basophils % (A) 0 %; Eosinophils # (A) 0.1 k/uL (0-0.7); Eosinophils % (A) 2 %; HCT 34.3 % (39.0-53.0); HGB 10.5 gm/dL (13.0-17.5); Hypochromasia Marked; Lymphocytes # (A) 0.3 k/uL (1.0-4.8); Lymphocytes % (A) 4 %; MCH 29.5 pg (25.0-35.0); MCHC 30.5 g/dL (31.0-37.0); MCV 96.7 fL (80.0-100.0); Macrocytosis Slight; Mean Platelet Volume 7.7; Monocytes # (A) 0.4 k/uL (0-1.0); Monocytes % (A) 6 %; Neutrophils # (A) 6.4 k/uL (1.3-7.7); Neutrophils % (A) 87 %; Platelet Count 200 k/uL (150-450); RBC 3.55 m/uL (4.30-5.90); RDW 17.7 % (11.5-15.5); WBC 7.4 k/uL (3.8-10.6)
[2017-05-05 07:00] LABS: ALT 19 U/L (21-72); AST 24 U/L (17-59); Albumin 2.7 g/dL (3.5-5.0); Alkaline Phosphatase 80 U/L (38-126); Anion Gap 9 mmol/L; Blood Urea Nitrogen 69 mg/dL (9-20); Calcium 8.7 mg/dL (8.4-10.2); Carbon Dioxide 35 mmol/L (22-30); Chloride 96 mmol/L (98-107); Glucose 125 mg/dL (74-99); Potassium 4.6 mmol/L (3.5-5.1); Sodium 140 mmol/L (137-145); Total Bilirubin 0.2 mg/dL (0.2-1.3); Total Protein 5.9 g/dL (6.3-8.2)
[2017-05-05 07:08] LABS: INR 2.2 (<1.2)
[2017-05-05] MEDS: IPRATROPIUM-ALBUTEROL 3 ML NEB INHALATION SCH ×4 (07:14→19:59)
[2017-05-05] MEDS: DOBUTamine DRIP 500 MG in DEXTROSE/WATER 1 250ML.BAG IV SCH (08:09)
[2017-05-05] MEDS: LINAGLIPTIN 5 MG TABLET PO SCH (08:10)
[2017-05-05] MEDS: FERROUS SULFATE 325 MG TAB PO SCH (08:10)
[2017-05-05] MEDS: METOPROLOL TARTRATE 50 MG TAB PO SCH ×2 (08:10→21:03)
[2017-05-05 11:36] LABS: Glucose,Whole Blood 218 mg/dL (75-99)
[2017-05-05] MEDS: MULTIVITAMINS, THERA 1 EACH TAB PO SCH (12:09)
[2017-05-05] MEDS: ACETAMINOPHEN TAB 325 MG TAB PO PRN (13:51)
--- NOTE | 2017-05-05 14:20 | P.PN ---
Subjective Patient was admitted for can start failure chronic diastolic dysfunction with acute exacerbation and patient is quite worked up today quite short of breath patient was started on IV Lasix drip and dopamine drip by cardiology patient appears to have significant pulmonary edema with elevated JVD appears to be in severe heart failure exacerbation is comparing of severe shortness of breath patient was unable to provide me any other review of systems because of his clinical condition patient doesn't look well at all 05/05/2017 Patient is looking better than yesterday but still short of breath significant improvement competitors today patient is bit hypotensive continues to be on dobutamine and IV Lasix can use to have significant bilateral pedal edema. Constitutional: Denied any fatigue denied any fever. Cardio vascular: denied any chest pain, palpitations Gastrointestinal denied any nausea vomiting Pulmonary: As mentioned in HPI Neurologic denied any new focal deficits Objective - Vital Signs Vital signs: Vital Signs Temp 96.9 F L 05/05/17 11:15 Pulse 93 05/05/17 11:15 Resp 20 05/05/17 11:15 BP 87/62 05/05/17 11:15 Pulse Ox 100 05/05/17 11:15 Intake & Output 05/04/17 05/05/17 05/05/17 18:59 06:59 18:59 Intake Total 1080 328 490 Output Total 550 200 250 Balance 530 128 240 Weight 107.9 kg Intake: IV 20 saline flush 20 Intake, IV Titration 308 250 Amount DOBUTamine DRIP 500 mg In 128 250 Dextrose/Water 1 250ml. bag @ 5 MCG/KG/MIN 16.09 mls/hr IV .[id number] FAM Rx #:[id number] Furosemide 250 mg In 80 Sodium Chloride 0.9% 225 ml @ 10 MG/HR 10 mls/hr IVP .Q24H FAM Rx#: [id number] cefTAZidime 2 gm In 100 Sodium Chloride 0.9% 100 ml @ 100 mls/hr IVPB Q8HR FAM Rx#:[id number] Oral 1080 240 Output: Urine 550 200 250 Other: Voiding Method Urinal Urinal # Voids 1 2 1 # Bowel Movements 1 - Exam PHYSICAL EXAMINATION: GENERAL: The patient is alert and oriented x3, respiratory distress did improve significantly HEENT: Pupils are round and equally reacting to light. EOMI. No scleral icterus. No conjunctival pallor. Normocephalic, atraumatic. No pharyngeal erythema. No thyromegaly. CARDIOVASCULAR: S1 and S2 present. Does have elevated JVD and probably a systolic murmur in aortic area PULMONARY: Chest is clear to auscultation, significant wheezing was appreciated appears to have cardiac asthma course rhonchi. ABDOMEN: Soft, nontender, nondistended, normoactive bowel sounds. No palpable organomegaly. MUSCULOSKELETAL: No joint swelling or deformity. EXTREMITIES: No cyanosis, clubbing, does have bilateral pedal edema significant with venostasis and ulcers with cellulitis of bilateral lower extremities NEUROLOGICAL: Gross neurological examination did not reveal any focal deficits. SKIN: No rashes. - Labs CBC & Chem 7: 05/05/17 05:32 05/05/17 05:32 Labs: Abnormal Lab Results - Last 24 Hours (Table) 05/04/17 05/04/17 05/05/17 Range/Units 16:19 20:56 05:32 RBC 3.55 L (4.30-5.90) m/uL Hgb 10.5 L (13.0-17.5) gm/dL Hct 34.3 L (39.0-53.0) % MCHC 30.5 L (31.0-37.0) g/dL RDW 17.7 H (11.5-15.5) % Lymphocytes # 0.3 L (1.0-4.8) k/uL PT (9.0-12.0) sec INR (<1.2) Chloride (98-107) mmol/L Carbon Dioxide (22-30) mmol/L BUN (9-20) mg/dL Glucose (74-99) mg/dL POC Glucose (mg/dL) 146 H 180 H (75-99) mg/dL ALT (21-72) U/L Total Protein (6.3-8.2) g/dL Albumin (3.5-5.0) g/dL 05/05/17 05/05/17 05/05/17 Range/Units 05:32 05:32 05:49 RBC (4.30-5.90) m/uL Hgb (13.0-17.5) gm/dL Hct (39.0-53.0) % MCHC (31.0-37.0) g/dL RDW (11.5-15.5) % Lymphocytes # (1.0-4.8) k/uL PT 20.0 H (9.0-12.0) sec INR 2.2 H (<1.2) Chloride 96 L (98-107) mmol/L Carbon Dioxide 35 H (22-30) mmol/L BUN 69 H (9-20) mg/dL Glucose 125 H (74-99) mg/dL POC Glucose (mg/dL) 130 H (75-99) mg/dL ALT 19 L (21-72) U/L Total Protein 5.9 L (6.3-8.2) g/dL Albumin 2.7 L (3.5-5.0) g/dL 05/05/17 Range/Units 11:25 RBC (4.30-5.90) m/uL Hgb (13.0-17.5) gm/dL Hct (39.0-53.0) % MCHC (31.0-37.0) g/dL RDW (11.5-15.5) % Lymphocytes # (1.0-4.8) k/uL PT (9.0-12.0) sec INR (<1.2) Chloride (98-107) mmol/L Carbon Dioxide (22-30) mmol/L BUN (9-20) mg/dL Glucose (74-99) mg/dL POC Glucose (mg/dL) 218 H (75-99) mg/dL ALT (21-72) U/L Total Protein (6.3-8.2) g/dL Albumin (3.5-5.0) g/dL Microbiology - Last 24 Hours (Table) 05/02/17 11:16 Blood Culture - Preliminary Blood No Growth after 72 hours 05/04/17 09:14 Gram Stain - Preliminary Sputum 05/02/17 11:00 Gram Stain - Final Leg - Right Wound Culture - Final Pseudomonas aeruginosa Assessment and Plan Plan: #1 diastolic congestive heart failure acute on chronic. Cardiogram with Doppler study performed on the second of this month revealed an ejection fraction of 50-55%. Patient was started on dobutamine drip and IV Lasix drip close kidney function monitoring #2 chronic persistent atrial fibrillation, on Coumadin for anticoagulation, patient's INR is therapeutic today patient will be resumed on 2 mg of Coumadin daily with repeat INR tomorrow #3 hypertension #4 hyperlipidemia #5 severe peripheral vascular disease with significant bilateral lower extremity ulcerations, infectious disease evaluated the patient and patient is being treated with broad-spectrum antibiotics for cellulitis and infected ulcers of the bilateral lower extremities. Patient's wound cultures are positive for Pseudomonas aeruginosa #6 chronic anasarca #7 chronic anemia #8 mild renal insufficiency #9 diabetes
[2017-05-05 14:41] LABS: Anisocytosis Slight; HCT 33.9 % (39.0-53.0); HGB 10.6 gm/dL (13.0-17.5); Hypochromasia Slight; MCH 29.7 pg (25.0-35.0); MCHC 31.3 g/dL (31.0-37.0); MCV 94.9 fL (80.0-100.0); Mean Platelet Volume 7.9; Platelet Count 189 k/uL (150-450); RBC 3.58 m/uL (4.30-5.90); RDW 16.5 % (11.5-15.5); WBC 9.1 k/uL (3.8-10.6)
[2017-05-05 15:19] LABS: Eosinophils # (M) 0.09 k/uL (0-0.7); Lymphocytes # (M) 0.55 k/uL (1.0-4.8); Metamyelocytes # (M) 0.09 k/uL (0); Metamyelocytes % 1 %; Monocytes # (M) 0.64 k/uL (0-1.0); Myelocytes # (M) 0.09 k/uL (0); Myelocytes % 1 %; Neutrophils # (M) 7.74 k/uL (1.3-7.7); Neutrophils % (M) 85 %; Nucleated Red Blood Cells 0 /100 WBC (0-0); Total Cells Counted 200
--- NOTE | 2017-05-05 15:20 | P.PN ---
Subjective Progress Note Date: 05/05/17 Principal diagnosis: Shortness of breath This is an 82-year-old gentleman with history of chronic diastolic congestive heart failure, chronic persistent atrial fibrillation, diabetes, hypertension, hyperlipidemia, peripheral vascular disease, chronic venous stasis with significant lower extremity ulcerations, chronic anemia, chronic anasarca, patient also had approximately 8 L of fluid removed from his abdomen at [facility] approximately who was just recently in the hospital with a CHF exacerbation. He was discharged home on Tuesday and according to him and his family member he felt well, had a good day on Tuesday , and apparently on Tuesday became quite short of breath again. For this reason he presented back to the hospital for further evaluation. Chest x-ray on arrival here showed bilateral infiltrates and pleural effusion, correlate for CHF versus pneumonia. Abdominal x-ray was nonspecific. EKG shows atrial fibrillation with a controlled ventricular response. At pressure 157/80 with a heart rate in the low 100s to 120 range, 98% on 4 L. White blood cell count 13.5, hemoglobin 12.5, platelet count 280. INR 1.9. BUN 67 and creatinine 1.2 yesterday 71 and 1.4 this morning. Potassium 5. Admission, 4.6 This Morning. Troponin Negative. At the time of my examination this morning, patient still appears quite short of breath while speaking, he has significant open ulcerated areas on his bilateral lower extremities for which dressings are being applied. 05/04/2017 Patient was seen and examined this morning, quite short of breath, even while sitting up in chair. States that he feels significantly worse this morning. His weight is documented to be up this morning. WBC 11.1, hemoglobin 11.4, platelet count 256. INR 2.2, BUN 73, creatinine 1.4. We will discontinue the IV push Lasix, start the patient on Lasix drip along with dobutamine, monitor intake and output along with daily weights closely. Patient has been encouraged to consider transfer to rehab following this hospital stay, prognosis overall guarded. 05/05 2017 Patient seen and examined this morning, no significant improvement seen today. His weight is actually up, urine output is marginal. He does feel his breathing is mildly improved, we will continue Lasix drip at 10 mg per hour along with the dobutamine drip. Objective - Vital Signs Vital signs: Vital Signs Temp 96.9 F L 05/05/17 11:15 Pulse 93 05/05/17 11:15 Resp 20 05/05/17 11:15 BP 87/62 05/05/17 11:15 Pulse Ox 100 05/05/17 11:15 Intake & Output 05/04/17 05/05/17 05/05/17 18:59 06:59 18:59 Intake Total 1080 328 490 Output Total 550 200 550 Balance 530 128 -60 Weight 107.9 kg Intake: IV 20 saline flush 20 Intake, IV Titration 308 250 Amount DOBUTamine DRIP 500 mg In 128 250 Dextrose/Water 1 250ml. bag @ 5 MCG/KG/MIN 16.09 mls/hr IV .[id number] FAM Rx #:[id number] Furosemide 250 mg In 80 Sodium Chloride 0.9% 225 ml @ 10 MG/HR 10 mls/hr IVP .Q24H FAM Rx#: [id number] cefTAZidime 2 gm In 100 Sodium Chloride 0.9% 100 ml @ 100 mls/hr IVPB Q8HR FAM Rx#:[id number] Oral 1080 240 Output: Urine 550 200 550 Other: Voiding Method Urinal Urinal # Voids 1 2 1 # Bowel Movements 1 - Exam PHYSICAL EXAMINATION: HEENT: Head is atraumatic, normocephalic. Pupils equal, round. Neck is supple. There is no elevated jugular venous pressure. HEART EXAMINATION: Heart S1 and S2 irregularly irregular a systolic murmur is heard CHEST EXAMINATION: Lungs reveal scattered coarse rhonchi and mild wheezing with diminished air entry to the bases. ABDOMEN: Soft, nontender. Bowel sounds are heard. No organomegaly noted. EXTREMITIES:[ 1+ peripheral pulses with 2+ evidence of peripheral edema , evidence of chronic venous system and multiple open ulcerated areas on bilateral lower extremities NEUROLOGIC patient is awake, alert and oriented -3. . - Labs CBC & Chem 7: 05/05/17 13:28 05/05/17 05:32 Labs: Abnormal Lab Results - Last 24 Hours (Table) 05/04/17 05/04/17 05/05/17 Range/Units 16:19 20:56 05:32 RBC 3.55 L (4.30-5.90) m/uL Hgb 10.5 L (13.0-17.5) gm/dL Hct 34.3 L (39.0-53.0) % MCHC 30.5 L (31.0-37.0) g/dL RDW 17.7 H (11.5-15.5) % Lymphocytes # 0.3 L (1.0-4.8) k/uL PT (9.0-12.0) sec INR (<1.2) Chloride (98-107) mmol/L Carbon Dioxide (22-30) mmol/L BUN (9-20) mg/dL Glucose (74-99) mg/dL POC Glucose (mg/dL) 146 H 180 H (75-99) mg/dL ALT (21-72) U/L Total Protein (6.3-8.2) g/dL Albumin (3.5-5.0) g/dL 05/05/17 05/05/17 05/05/17 Range/Units 05:32 05:32 05:49 RBC (4.30-5.90) m/uL Hgb (13.0-17.5) gm/dL Hct (39.0-53.0) % MCHC (31.0-37.0) g/dL RDW (11.5-15.5) % Lymphocytes # (1.0-4.8) k/uL PT 20.0 H (9.0-12.0) sec INR 2.2 H (<1.2) Chloride 96 L (98-107) mmol/L Carbon Dioxide 35 H (22-30) mmol/L BUN 69 H (9-20) mg/dL Glucose 125 H (74-99) mg/dL POC Glucose (mg/dL) 130 H (75-99) mg/dL ALT 19 L (21-72) U/L Total Protein 5.9 L (6.3-8.2) g/dL Albumin 2.7 L (3.5-5.0) g/dL 05/05/17 05/05/17 Range/Units 11:25 13:28 RBC 3.58 L (4.30-5.90) m/uL Hgb 10.6 L (13.0-17.5) gm/dL Hct 33.9 L (39.0-53.0) % MCHC (31.0-37.0) g/dL RDW 16.5 H (11.5-15.5) % Lymphocytes # (1.0-4.8) k/uL PT (9.0-12.0) sec INR (<1.2) Chloride (98-107) mmol/L Carbon Dioxide (22-30) mmol/L BUN (9-20) mg/dL Glucose (74-99) mg/dL POC Glucose (mg/dL) 218 H (75-99) mg/dL ALT (21-72) U/L Total Protein (6.3-8.2) g/dL Albumin (3.5-5.0) g/dL Microbiology - Last 24 Hours (Table) 05/02/17 11:16 Blood Culture - Preliminary Blood No Growth after 72 hours 05/04/17 09:14 Gram Stain - Preliminary Sputum 05/02/17 11:00 Gram Stain - Final Leg - Right Wound Culture - Final Pseudomonas aeruginosa Assessment and Plan Plan: Assessment and plan #1 diastolic congestive heart failure acute on chronic. Cardiogram with Doppler study performed on the second of this month revealed an ejection fraction of 50-55%. #2 chronic persistent atrial fibrillation, on Coumadin for anticoagulation, subtherapeutic INR #3 hypertension #4 hyperlipidemia #5 severe peripheral vascular disease with significant bilateral lower extremity ulcerations #6 chronic anasarca #7 chronic anemia #8 mild renal insufficiency #9 diabetes Plan We'll continue Lasix drip at 10 mg per hour along with dobutamine drip. Continue to monitor intake and output along with daily weights, daily lytes BUN and creatinine. DNP note has been reviewed, I agree with a documented findings and plan of care. Patient was seen and examined.
--- NOTE | 2017-05-05 15:45 | XR ---
EXAMINATION TYPE: XR chest 2V DATE OF EXAM: 05/05/2017 COMPARISON: 05/03/2017 HISTORY: Shortness of breath FINDINGS: Noted is pulmonary venous congestion with scattered infiltrates. There is also cardiomegaly and small effusions. IMPRESSION: Findings compatible with stable congestive failure. Infiltrates of other etiology are not excluded. Clinical correlation and progress studies are recommended.
[2017-05-05] MEDS: FUROSEMIDE 250 MG in SODIUM CHLORIDE 0.9% 225 ML IVP SCH (16:17)
--- NOTE | 2017-05-05 16:19 | PN ---
PROGRESS NOTE DATE OF SERVICE: 05/05/2017 REASON FOR FOLLOWUP: Bilateral lower extremity venostasis ulcers and cellulitis. INTERVAL HISTORY: The patient is afebrile. He did have some congested cough but not bringing up sputum. No chest pain. No abdominal pain. No diarrhea. PHYSICAL EXAMINATION: Blood pressure is 92/60 with a pulse of 93, temperature of 96.9. He is 100% on 4 L nasal cannula. General description is an elderly male up in the chair in no distress. RESPIRATORY SYSTEM: Unlabored breathing. Coarse breath sounds bilaterally. HEART: S1, S2. Regular rhythm. ABDOMEN: Soft,. No tenderness. Bilateral leg wounds are currently dressed up. Did have some drainage on the dressing. LABS: Hemoglobin is 10.6, white of 9.1. Creatinine is 1.18. DIAGNOSTIC IMPRESSION AND PLAN: Patient with bilateral lower extremity venostasis ulcers, possible cellulitis. Local wound culture did show Pseudomonas aeruginosa, currently covered with Fortaz. That will be continued in addition to the Aquacel Silver dressing and compression with Bill wrap. Continue with supportive care. MMODL / IJN: [id number] /
[2017-05-05 16:28] LABS: Glucose,Whole Blood 168 mg/dL (75-99)
[2017-05-05] MEDS: WARFARIN 2 MG TAB PO SCH (17:19)
[2017-05-05 20:57] LABS: Glucose,Whole Blood 208 mg/dL (75-99)
[2017-05-05] MEDS ORDERED: DOBUTamine DRIP for NUC MED 250 MG in DEXTROSE/WATER 1 250ML.BAG IV ONE (22:00)
[2017-05-06] MEDS: DOBUTAMINE IV SCH ×4 (03:23→21:28)
[2017-05-06] MEDS: DEXTROSE IV SCH ×4 (03:23→21:28)
[2017-05-06] MEDS: WATER IV SCH ×4 (03:23→21:28)
[2017-05-06] MEDS: INSULIN ASPART 100 UNIT/ML 1 ML 10 ML VIAL SQ SCH ×4 (06:04→21:30)
[2017-05-06 06:07] LABS: Glucose,Whole Blood 118 mg/dL (75-99)
[2017-05-06 06:31] LABS: INR 2.2 (<1.2); Prothrombin Time 19.7 sec (9.0-12.0)
[2017-05-06 06:42] LABS: ALT 24 U/L (21-72); AST 25 U/L (17-59); Alkaline Phosphatase 87 U/L (38-126); Anion Gap 9 mmol/L; Blood Urea Nitrogen 67 mg/dL (9-20); Calcium 8.7 mg/dL (8.4-10.2); Carbon Dioxide 38 mmol/L (22-30); Chloride 93 mmol/L (98-107); Glucose 113 mg/dL (74-99); Potassium 4.8 mmol/L (3.5-5.1); Sodium 140 mmol/L (137-145); Total Bilirubin 0.4 mg/dL (0.2-1.3); Total Protein 6.3 g/dL (6.3-8.2)
[2017-05-06 06:46] LABS: Anisocytosis Slight; Basophils % (A) 0 %; Eosinophils # (A) 0.2 k/uL (0-0.7); Eosinophils % (A) 2 %; HCT 34.9 % (39.0-53.0); HGB 10.7 gm/dL (13.0-17.5); Hypochromasia Moderate; Lymphocytes # (A) 0.3 k/uL (1.0-4.8); Lymphocytes % (A) 3 %; MCH 29.5 pg (25.0-35.0); MCHC 30.7 g/dL (31.0-37.0); MCV 96.2 fL (80.0-100.0); Mean Platelet Volume 7.5; Monocytes # (A) 0.6 k/uL (0-1.0); Monocytes % (A) 6 %; Neutrophils # (A) 7.8 k/uL (1.3-7.7); Neutrophils % (A) 86 %; Platelet Count 223 k/uL (150-450); RBC 3.63 m/uL (4.30-5.90); RDW 16.5 % (11.5-15.5)
[2017-05-06] MEDS: IPRATROPIUM-ALBUTEROL 3 ML NEB INHALATION SCH ×4 (08:13→20:08)
[2017-05-06] MEDS: METOPROLOL TARTRATE 50 MG TAB PO SCH ×2 (08:26→20:27)
[2017-05-06] MEDS: FERROUS SULFATE 325 MG TAB PO SCH (08:26)
[2017-05-06] MEDS: LINAGLIPTIN 5 MG TABLET PO SCH (08:26)
[2017-05-06 12:04] LABS: Glucose,Whole Blood 141 mg/dL (75-99)
--- NOTE | 2017-05-06 13:23 | PN ---
PROGRESS NOTE Mr. Tucker is an 82-year-old male with a known history of recurrent CHF, history of renal disease. He is feeling better this morning. He has lost some weight. He continued to have dyspnea, although not any worse. He denies any dizziness, palpitation. He denies any nausea. He has history of chronic persistent atrial fibrillation as well as diastolic failure. He continues to be on the IV dobutamine, IV Lasix drip, Tradjenta, metoprolol 100 mg twice a day, and Coumadin. PHYSICAL EXAMINATION: Blood pressure 121/70 with a heart rate in the 90s. Lungs with a few crackles, improved compared with yesterday. HEART: Irregular, regular, S1, S2. No S3. No rub. ABDOMEN: Soft, obese, distended. EXTREMITIES: +2 edema with chronic stasis. He has lost a 7 kg since yesterday. LAB DATA: Revealed a hemoglobin 10.7, BUN and creatinine of 67 and 1.25, which has improved compared with admission. His INR is 2.2. IMPRESSION: 1. Congestive heart failure with diastolic dysfunction, improving. 2. Chronic persistent atrial fibrillation. 3. Abnormal renal function, improving. 4. Venostasis and cellulitis, treated. RECOMMENDATION: From the cardiac standpoint, will continue current therapy. Will continue IV Lasix and IV dobutamine infusion for another 24 hours. Will follow his renal function. If he is stable, I will stop the dobutamine tomorrow. Continue the rest of his medication. Unfortunately, the prognosis remains guarded. MMODL / IJN: [id number] /
[2017-05-06] MEDS ORDERED: POLYETHYLENE GLYCOL 3350 17 GM POWD.PACK PO PRN (14:10)
--- NOTE | 2017-05-06 14:13 | P.PN ---
Subjective Patient was admitted for can start failure chronic diastolic dysfunction with acute exacerbation and patient is quite worked up today quite short of breath patient was started on IV Lasix drip and dopamine drip by cardiology patient appears to have significant pulmonary edema with elevated JVD appears to be in severe heart failure exacerbation is comparing of severe shortness of breath patient was unable to provide me any other review of systems because of his clinical condition patient doesn't look well at all 05/05/2017 Patient is looking better than yesterday but still short of breath significant improvement competitors today patient is bit hypotensive continues to be on dobutamine and IV Lasix can use to have significant bilateral pedal edema. 05/06/2017 Patient says his respiratory status improved compared to yesterday can use to have some shortness of breath and he says significant wheeze on exam and rhonchus breath sounds does have significant anasarca including significant bilateral lower limb swelling with the distended belly and subcutaneous edema of the skin of the abdomen Constitutional: Denied any fatigue denied any fever. Cardio vascular: denied any chest pain, palpitations Gastrointestinal denied any nausea vomiting Pulmonary: As mentioned in HPI Neurologic denied any new focal deficits Objective - Vital Signs Vital signs: Vital Signs Temp 97.2 F L 05/06/17 12:00 Pulse 98 05/06/17 12:00 Resp 18 05/06/17 12:00 BP 121/77 05/06/17 12:00 Pulse Ox 98 05/06/17 12:00 Intake & Output 05/05/17 05/06/17 05/06/17 18:59 06:59 18:59 Intake Total 971.667 120 Output Total 750 300 200 Balance 221.667 -300 -80 Weight 100.2 kg Intake: Intake, IV Titration 491.667 Amount DOBUTamine DRIP 500 mg In 250 Dextrose/Water 1 250ml. bag @ 5 MCG/KG/MIN 16.09 mls/hr IV .[id number] [facility] Rx #:[id number] Furosemide 250 mg In 241.667 Sodium Chloride 0.9% 225 ml @ 10 MG/HR 10 mls/hr IVP .Q24H [facility] Rx#: [id number] Oral 480 120 Output: Urine 750 300 200 Other: Voiding Method Urinal # Voids 1 2 # Bowel Movements 1 - Exam PHYSICAL EXAMINATION: GENERAL: The patient is alert and oriented x3, respiratory distress did improve significantly HEENT: Pupils are round and equally reacting to light. EOMI. No scleral icterus. No conjunctival pallor. Normocephalic, atraumatic. No pharyngeal erythema. No thyromegaly. CARDIOVASCULAR: S1 and S2 present. Does have elevated JVD and probably a systolic murmur in aortic area PULMONARY: Chest is clear to auscultation, significant wheezing was appreciated appears to have cardiac asthma course rhonchi. ABDOMEN: Soft, nontender, nondistended, normoactive bowel sounds. No palpable organomegaly. MUSCULOSKELETAL: No joint swelling or deformity. EXTREMITIES: No cyanosis, clubbing, does have bilateral pedal edema significant with venostasis and ulcers with cellulitis of bilateral lower extremitie ssignificant anasarca including significant bilateral lower limb swelling with the distended belly and subcutaneous edema of the skin of the abdomen NEUROLOGICAL: Gross neurological examination did not reveal any focal deficits. SKIN: No rashes. - Labs CBC & Chem 7: 05/06/17 05:33 05/06/17 05:33 Labs: Abnormal Lab Results - Last 24 Hours (Table) 05/05/17 05/05/17 05/05/17 Range/Units 13:28 16:25 20:51 RBC 3.58 L (4.30-5.90) m/uL Hgb 10.6 L (13.0-17.5) gm/dL Hct 33.9 L (39.0-53.0) % MCHC (31.0-37.0) g/dL RDW 16.5 H (11.5-15.5) % Neutrophils # (1.3-7.7) k/uL Neutrophils # (Manual) 7.74 H (1.3-7.7) k/uL Lymphocytes # (1.0-4.8) k/uL Lymphocytes # (Manual) 0.55 L (1.0-4.8) k/uL Metamyelocytes # (Man) 0.09 H (0) k/uL Myelocytes # (Manual) 0.09 H (0) k/uL PT (9.0-12.0) sec INR (<1.2) Chloride (98-107) mmol/L Carbon Dioxide (22-30) mmol/L BUN (9-20) mg/dL Glucose (74-99) mg/dL POC Glucose (mg/dL) 168 H 208 H (75-99) mg/dL Albumin (3.5-5.0) g/dL 05/06/17 05/06/17 05/06/17 Range/Units 05:33 05:33 05:33 RBC 3.63 L (4.30-5.90) m/uL Hgb 10.7 L (13.0-17.5) gm/dL Hct 34.9 L (39.0-53.0) % MCHC 30.7 L (31.0-37.0) g/dL RDW 16.5 H (11.5-15.5) % Neutrophils # 7.8 H (1.3-7.7) k/uL Neutrophils # (Manual) (1.3-7.7) k/uL Lymphocytes # 0.3 L (1.0-4.8) k/uL Lymphocytes # (Manual) (1.0-4.8) k/uL Metamyelocytes # (Man) (0) k/uL Myelocytes # (Manual) (0) k/uL PT 19.7 H (9.0-12.0) sec INR 2.2 H (<1.2) Chloride 93 L (98-107) mmol/L Carbon Dioxide 38 H (22-30) mmol/L BUN 67 H (9-20) mg/dL Glucose 113 H (74-99) mg/dL POC Glucose (mg/dL) (75-99) mg/dL Albumin 3.0 L (3.5-5.0) g/dL 05/06/17 05/06/17 Range/Units 05:53 11:45 RBC (4.30-5.90) m/uL Hgb (13.0-17.5) gm/dL Hct (39.0-53.0) % MCHC (31.0-37.0) g/dL RDW (11.5-15.5) % Neutrophils # (1.3-7.7) k/uL Neutrophils # (Manual) (1.3-7.7) k/uL Lymphocytes # (1.0-4.8) k/uL Lymphocytes # (Manual) (1.0-4.8) k/uL Metamyelocytes # (Man) (0) k/uL Myelocytes # (Manual) (0) k/uL PT (9.0-12.0) sec INR (<1.2) Chloride (98-107) mmol/L Carbon Dioxide (22-30) mmol/L BUN (9-20) mg/dL Glucose (74-99) mg/dL POC Glucose (mg/dL) 118 H 141 H (75-99) mg/dL Albumin (3.5-5.0) g/dL Microbiology - Last 24 Hours (Table) 05/02/17 11:16 Blood Culture - Preliminary Blood No Growth after 96 hours 05/04/17 09:14 Gram Stain - Final Sputum Sputum Culture - Final 05/03/17 16:45 Urine Culture - Final Urine,Clean Catch Pseudomonas aeruginosa Assessment and Plan Plan: #1 diastolic congestive heart failure acute on chronic. Cardiogram with Doppler study performed on the second of this month revealed an ejection fraction of 50-55%. Patient was started on dobutamine drip and IV Lasix drip close kidney function monitoring #2 chronic persistent atrial fibrillation, on Coumadin for anticoagulation, patient's INR is therapeutic today patient will be resumed on 2 mg of Coumadin daily with repeat INR tomorrow #3 hypertension #4 hyperlipidemia #5 severe peripheral vascular disease with significant bilateral lower extremity ulcerations, infectious disease evaluated the patient and patient is being treated with broad-spectrum antibiotics for cellulitis and infected ulcers of the bilateral lower extremities. Patient's wound cultures are positive for Pseudomonas aeruginosa #6 chronic anasarca #7 chronic anemia #8 mild renal insufficiency #9 diabetes
[2017-05-06] MEDS: MULTIVITAMINS, THERA 1 EACH TAB PO SCH (14:26)
[2017-05-06] MEDS: FUROSEMIDE 250 MG in SODIUM CHLORIDE 0.9% 225 ML IVP SCH (16:17)
[2017-05-06 16:40] LABS: Glucose,Whole Blood 156 mg/dL (75-99)
[2017-05-06] MEDS: WARFARIN 2 MG TAB PO SCH (18:10)
[2017-05-06 21:20] LABS: Glucose,Whole Blood 186 mg/dL (75-99)
--- NOTE | 2017-05-06 22:17 | PN ---
PROGRESS NOTE DATE OF SERVICE: 05/06/2016. REASON FOR FOLLOWUP: Bilateral lower extremity venous stasis and cellulitis. INTERVAL HISTORY: The patient is afebrile. He is breathing slightly comfortably and did have some cough. No chest pain. No abdominal pain. Denies any pain in the leg area. EXAMINATION: Blood pressure 102/72, pulse of 96, temperature of 96. He he is 96% on 4L nasal cannula. General description is an elderly male up in the chair in no distress. RESPIRATORY SYSTEM: Unlabored breathing. Coarse breath sounds bilaterally. HEART: S1, S2. Regular rate and rhythm. ABDOMEN: Soft. No tenderness. Leg wounds are dressed. Some drainage on the dressing. LABS: Hemoglobin is 10.7, white count 9. Admission white count was 13.5 with a BUN of 67, creatinine 1.25. Urine culture showed Pseudomonas aeruginosa. Unfortunately, no UA was done to see the significance of the same. DIAGNOSTIC IMPRESSION AND PLAN: Patient with bilateral lower extremity venous stasis ulcer with secondary cellulitis, also with positive urine culture with Pseudomonas aeruginosa ? colonized. The patient is currently being treated with Fortaz. Should continue local wound care with an Aquacel Silver dressing to apply dry followed by Bill wrap. Continue supportive care. MMODL / IJN: [id number] / LIU
[2017-05-07 05:54] LABS: Glucose,Whole Blood 111 mg/dL (75-99)
[2017-05-07] MEDS: DOBUTAMINE IV SCH ×4 (06:02→20:32)
[2017-05-07] MEDS: INSULIN ASPART 100 UNIT/ML 1 ML 10 ML VIAL SQ SCH ×4 (06:02→21:40)
[2017-05-07] MEDS: DEXTROSE IV SCH ×4 (06:02→20:32)
[2017-05-07] MEDS: WATER IV SCH ×4 (06:02→20:32)
[2017-05-07 07:01] LABS: Anisocytosis Slight; Basophils # (A) 0.1 k/uL (0-0.2); Basophils % (A) 1 %; Eosinophils # (A) 0.2 k/uL (0-0.7); Eosinophils % (A) 2 %; HCT 40.5 % (39.0-53.0); HGB 12.1 gm/dL (13.0-17.5); Hypochromasia Marked; Lymphocytes # (A) 0.4 k/uL (1.0-4.8); Lymphocytes % (A) 3 %; MCH 28.7 pg (25.0-35.0); MCHC 29.8 g/dL (31.0-37.0); MCV 96.1 fL (80.0-100.0); Macrocytosis Slight; Mean Platelet Volume 7.9; Monocytes # (A) 0.6 k/uL (0-1.0); Monocytes % (A) 6 %; Neutrophils # (A) 8.7 k/uL (1.3-7.7); Neutrophils % (A) 86 %; Platelet Count 225 k/uL (150-450); RBC 4.22 m/uL (4.30-5.90); RDW 17.4 % (11.5-15.5); WBC 10.2 k/uL (3.8-10.6)
[2017-05-07 07:10] LABS: INR 1.8 (<1.2); Prothrombin Time 16.7 sec (9.0-12.0)
[2017-05-07 07:17] LABS: ALT 23 U/L (21-72); AST 35 U/L (17-59); Albumin 3.3 g/dL (3.5-5.0); Alkaline Phosphatase 98 U/L (38-126); Anion Gap 11 mmol/L; Blood Urea Nitrogen 72 mg/dL (9-20); Calcium 8.9 mg/dL (8.4-10.2); Carbon Dioxide 34 mmol/L (22-30); Chloride 95 mmol/L (98-107); Glucose 79 mg/dL (74-99); Potassium 4.9 mmol/L (3.5-5.1); Sodium 140 mmol/L (137-145); Total Bilirubin 0.5 mg/dL (0.2-1.3); Total Protein 7.1 g/dL (6.3-8.2)
[2017-05-07] MEDS: IPRATROPIUM-ALBUTEROL 3 ML NEB INHALATION SCH ×4 (08:10→20:24)
[2017-05-07] MEDS: FERROUS SULFATE 325 MG TAB PO SCH (10:13)
[2017-05-07] MEDS: METOPROLOL TARTRATE 50 MG TAB PO SCH ×2 (10:14→20:33)
[2017-05-07] MEDS: LINAGLIPTIN 5 MG TABLET PO SCH (10:14)
[2017-05-07 11:58] LABS: Glucose,Whole Blood 153 mg/dL (75-99)
--- NOTE | 2017-05-07 12:07 | P.PN ---
Subjective Patient was admitted for can start failure chronic diastolic dysfunction with acute exacerbation and patient is quite worked up today quite short of breath patient was started on IV Lasix drip and dopamine drip by cardiology patient appears to have significant pulmonary edema with elevated JVD appears to be in severe heart failure exacerbation is comparing of severe shortness of breath patient was unable to provide me any other review of systems because of his clinical condition patient doesn't look well at all 05/05/2017 Patient is looking better than yesterday but still short of breath significant improvement competitors today patient is bit hypotensive continues to be on dobutamine and IV Lasix can use to have significant bilateral pedal edema. 05/06/2017 Patient says his respiratory status improved compared to yesterday can use to have some shortness of breath and he says significant wheeze on exam and rhonchus breath sounds does have significant anasarca including significant bilateral lower limb swelling with the distended belly and subcutaneous edema of the skin of the abdomen 05/07/2017 Patient has minimal improving compared to yesterday although with increased with IV Lasix patient can he still significant anasarca bilateral pedal edema. Constitutional: Denied any fatigue denied any fever. Cardio vascular: denied any chest pain, palpitations Gastrointestinal denied any nausea vomiting Pulmonary: As mentioned in HPI Neurologic denied any new focal deficits Objective - Vital Signs Vital signs: Vital Signs Temp 97.2 F L 05/07/17 10:41 Pulse 82 05/07/17 11:56 Resp 18 05/07/17 10:41 BP 89/59 05/07/17 10:41 Pulse Ox 98 05/07/17 10:41 Intake & Output 05/06/17 05/07/17 05/07/17 18:59 06:59 18:59 Intake Total 480 360 Output Total 450 750 Balance 30 -750 360 Weight 108.2 kg Intake: Intake, IV Titration 240 Amount Furosemide 250 mg In 240 Sodium Chloride 0.9% 225 ml @ 10 MG/HR 10 mls/hr IVP .Q24H [facility] Rx#: [id number] Oral 240 360 Output: Urine 450 750 Other: # Voids 300 1 - Exam PHYSICAL EXAMINATION: GENERAL: The patient is alert and oriented x3, respiratory distress did improve significantly HEENT: Pupils are round and equally reacting to light. EOMI. No scleral icterus. No conjunctival pallor. Normocephalic, atraumatic. No pharyngeal erythema. No thyromegaly. CARDIOVASCULAR: S1 and S2 present. Does have elevated JVD and probably a systolic murmur in aortic area PULMONARY: Chest is clear to auscultation, significant wheezing was appreciated appears to have cardiac asthma course rhonchi. ABDOMEN: Soft, nontender, nondistended, normoactive bowel sounds. No palpable organomegaly. MUSCULOSKELETAL: No joint swelling or deformity. EXTREMITIES: No cyanosis, clubbing, does have bilateral pedal edema significant with venostasis and ulcers with cellulitis of bilateral lower extremitie ssignificant anasarca including significant bilateral lower limb swelling with the distended belly and subcutaneous edema of the skin of the abdomen NEUROLOGICAL: Gross neurological examination did not reveal any focal deficits. SKIN: No rashes. - Labs CBC & Chem 7: 05/07/17 06:12 05/07/17 06:12 Labs: Abnormal Lab Results - Last 24 Hours (Table) 05/06/17 05/06/17 05/07/17 Range/Units 16:38 21:17 05:52 RBC (4.30-5.90) m/uL Hgb (13.0-17.5) gm/dL MCHC (31.0-37.0) g/dL RDW (11.5-15.5) % Neutrophils # (1.3-7.7) k/uL Lymphocytes # (1.0-4.8) k/uL PT (9.0-12.0) sec INR (<1.2) Chloride (98-107) mmol/L Carbon Dioxide (22-30) mmol/L BUN (9-20) mg/dL Creatinine (0.66-1.25) mg/dL POC Glucose (mg/dL) 156 H 186 H 111 H (75-99) mg/dL Albumin (3.5-5.0) g/dL 05/07/17 05/07/17 05/07/17 Range/Units 06:12 06:12 06:12 RBC 4.22 L (4.30-5.90) m/uL Hgb 12.1 L (13.0-17.5) gm/dL MCHC 29.8 L (31.0-37.0) g/dL RDW 17.4 H (11.5-15.5) % Neutrophils # 8.7 H (1.3-7.7) k/uL Lymphocytes # 0.4 L (1.0-4.8) k/uL PT 16.7 H (9.0-12.0) sec INR 1.8 H (<1.2) Chloride 95 L (98-107) mmol/L Carbon Dioxide 34 H (22-30) mmol/L BUN 72 H (9-20) mg/dL Creatinine 1.28 H (0.66-1.25) mg/dL POC Glucose (mg/dL) (75-99) mg/dL Albumin 3.3 L (3.5-5.0) g/dL 05/07/17 Range/Units 11:55 RBC (4.30-5.90) m/uL Hgb (13.0-17.5) gm/dL MCHC (31.0-37.0) g/dL RDW (11.5-15.5) % Neutrophils # (1.3-7.7) k/uL Lymphocytes # (1.0-4.8) k/uL PT (9.0-12.0) sec INR (<1.2) Chloride (98-107) mmol/L Carbon Dioxide (22-30) mmol/L BUN (9-20) mg/dL Creatinine (0.66-1.25) mg/dL POC Glucose (mg/dL) 153 H (75-99) mg/dL Albumin (3.5-5.0) g/dL Microbiology - Last 24 Hours (Table) 05/02/17 11:16 Blood Culture - Preliminary Blood No Growth after 96 hours 05/04/17 09:14 Gram Stain - Final Sputum Sputum Culture - Final Assessment and Plan Plan: #1 diastolic congestive heart failure acute on chronic. Cardiogram with Doppler study performed on the second of this month revealed an ejection fraction of 50-55%. Patient now off dobutamine drip and is on IV Lasix which she'll continue with close monitoring of his EF patient can use to have significant wheezing was started on Symbicort and watch him #2 chronic persistent atrial fibrillation, on Coumadin for anticoagulation, patient's INR is bit soft diabetic patient will be given 3 mg of Coumadin today and recheck INR tomorrow #3 hypertension #4 hyperlipidemia #5 severe peripheral vascular disease with significant bilateral lower extremity ulcerations, infectious disease evaluated the patient and patient is being treated with broad-spectrum antibiotics for cellulitis and infected ulcers of the bilateral lower extremities. Patient's wound cultures are positive for Pseudomonas aeruginosa #6 chronic anasarca #7 chronic anemia #8 mild renal insufficiency #9 diabetes
[2017-05-07] MEDS: MULTIVITAMINS, THERA 1 EACH TAB PO SCH (12:59)
--- NOTE | 2017-05-07 15:13 | P.PN ---
Subjective Progress Note Date: 05/07/17 This is a pleasant 82-year-old gentleman with known history of recurrent diastolic congestive heart failure and renal disease. Admitted with acute on chronic diastolic CHF and was on a dobutamine and Lasix drip. Apparently the PICC dobutamine drip was stopped yesterday at around 1 PM. Upon examination today, patient is significantly more short of breath with some weight gain. Lung sounds are worse compared to yesterday with increased wheezing and crackles. Only on Lasix IV drip at 10 mg an hour. Objective - Vital Signs Vital signs: Vital Signs Temp 97.0 F L 05/07/17 12:00 Pulse 82 05/07/17 12:13 Resp 18 05/07/17 12:00 BP 110/62 05/07/17 12:00 Pulse Ox 99 05/07/17 12:00 Intake & Output 05/06/17 05/07/17 05/07/17 18:59 06:59 18:59 Intake Total 480 360 Output Total 450 750 Balance 30 -750 360 Weight 108.2 kg Intake: Intake, IV Titration 240 Amount Furosemide 250 mg In 240 Sodium Chloride 0.9% 225 ml @ 10 MG/HR 10 mls/hr IVP .Q24H [facility] Rx#: [id number] Oral 240 360 Output: Urine 450 750 Other: # Voids 300 1 - Exam PHYSICAL EXAMINATION: HEENT: Head is atraumatic, normocephalic. Pupils equal, round. Neck is supple. There is no elevated jugular venous pressure. HEART EXAMINATION: Heart sounds irregularly irregular, S1 and S2 normal. No murmur or gallop heard. CHEST EXAMINATION: Lungs reveal expiratory wheezing with increased crackles compared to yesterday. No chest wall tenderness is noted on palpation or with deep breathing. ABDOMEN: Soft, obese, distended nontender. Bowel sounds are heard. No organomegaly noted. EXTREMITIES: Evidence of +2 peripheral edema and weeping and no calf tenderness noted, discoloration consistent with chronic stasis. NEUROLOGIC patient is awake, alert and oriented x3. . - Labs CBC & Chem 7: 05/07/17 06:12 05/07/17 06:12 Labs: Abnormal Lab Results - Last 24 Hours (Table) 05/06/17 05/06/17 05/07/17 Range/Units 16:38 21:17 05:52 RBC (4.30-5.90) m/uL Hgb (13.0-17.5) gm/dL MCHC (31.0-37.0) g/dL RDW (11.5-15.5) % Neutrophils # (1.3-7.7) k/uL Lymphocytes # (1.0-4.8) k/uL PT (9.0-12.0) sec INR (<1.2) Chloride (98-107) mmol/L Carbon Dioxide (22-30) mmol/L BUN (9-20) mg/dL Creatinine (0.66-1.25) mg/dL POC Glucose (mg/dL) 156 H 186 H 111 H (75-99) mg/dL Albumin (3.5-5.0) g/dL 05/07/17 05/07/17 05/07/17 Range/Units 06:12 06:12 06:12 RBC 4.22 L (4.30-5.90) m/uL Hgb 12.1 L (13.0-17.5) gm/dL MCHC 29.8 L (31.0-37.0) g/dL RDW 17.4 H (11.5-15.5) % Neutrophils # 8.7 H (1.3-7.7) k/uL Lymphocytes # 0.4 L (1.0-4.8) k/uL PT 16.7 H (9.0-12.0) sec INR 1.8 H (<1.2) Chloride 95 L (98-107) mmol/L Carbon Dioxide 34 H (22-30) mmol/L BUN 72 H (9-20) mg/dL Creatinine 1.28 H (0.66-1.25) mg/dL POC Glucose (mg/dL) (75-99) mg/dL Albumin 3.3 L (3.5-5.0) g/dL 05/07/17 Range/Units 11:55 RBC (4.30-5.90) m/uL Hgb (13.0-17.5) gm/dL MCHC (31.0-37.0) g/dL RDW (11.5-15.5) % Neutrophils # (1.3-7.7) k/uL Lymphocytes # (1.0-4.8) k/uL PT (9.0-12.0) sec INR (<1.2) Chloride (98-107) mmol/L Carbon Dioxide (22-30) mmol/L BUN (9-20) mg/dL Creatinine (0.66-1.25) mg/dL POC Glucose (mg/dL) 153 H (75-99) mg/dL Albumin (3.5-5.0) g/dL Microbiology - Last 24 Hours (Table) 05/02/17 11:16 Blood Culture - Preliminary Blood No Growth after 120 hours 05/04/17 09:14 Gram Stain - Final Sputum Sputum Culture - Final Assessment and Plan Assessment: #1 acute on chronic diastolic congestive heart failure #2 chronic persistent atrial fibrillation #3 abnormal renal function, worsened compared to yesterday #4 venous stasis with cellulitis Plan: From the cardiac standpoint, we will resume IV dobutamine infusion. Continue IV Lasix drip. Will follow renal function, daily weights and intake and outputs. We will continue to follow the patient provide further recommendations accordingly. CONTRACT MANAGER note has been reviewed, I agree with a documented findings and plan of care. Patient was seen and examined.
[2017-05-07] MEDS: FUROSEMIDE 250 MG in SODIUM CHLORIDE 0.9% 225 ML IVP SCH ×2 (16:04→17:04)
[2017-05-07] MEDS: WARFARIN 3 MG TAB PO SCH (16:09)
[2017-05-07 17:09] LABS: Glucose,Whole Blood 132 mg/dL (75-99)
[2017-05-07] MEDS: SYMBICORT 160-4.5 MCG INHALER INHALATION SCH (20:24)
[2017-05-07 20:55] LABS: Glucose,Whole Blood 240 mg/dL (75-99)
[2017-05-08 05:53] LABS: Glucose,Whole Blood 86 mg/dL (75-99)
[2017-05-08] MEDS: DEXTROSE IV SCH ×3 (06:09→19:50)
[2017-05-08] MEDS: INSULIN ASPART 100 UNIT/ML 1 ML 10 ML VIAL SQ SCH ×4 (06:09→22:02)
[2017-05-08] MEDS: DOBUTAMINE IV SCH ×3 (06:09→19:50)
[2017-05-08] MEDS: WATER IV SCH ×3 (06:09→19:50)
[2017-05-08 06:16] LABS: Anisocytosis Slight; Basophils % (A) 1 %; Eosinophils # (A) 0.1 k/uL (0-0.7); Eosinophils % (A) 2 %; HCT 35.7 % (39.0-53.0); HGB 10.4 gm/dL (13.0-17.5); Hypochromasia Marked; Lymphocytes # (A) 0.4 k/uL (1.0-4.8); Lymphocytes % (A) 4 %; MCH 28.3 pg (25.0-35.0); MCHC 29.3 g/dL (31.0-37.0); MCV 96.8 fL (80.0-100.0); Macrocytosis Slight; Mean Platelet Volume 7.7; Monocytes # (A) 0.6 k/uL (0-1.0); Monocytes % (A) 7 %; Neutrophils # (A) 7.6 k/uL (1.3-7.7); Neutrophils % (A) 86 %; Platelet Count 209 k/uL (150-450); RBC 3.68 m/uL (4.30-5.90); RDW 17.6 % (11.5-15.5); WBC 8.9 k/uL (3.8-10.6)
[2017-05-08 06:32] LABS: Anion Gap 10 mmol/L; Blood Urea Nitrogen 71 mg/dL (9-20); Calcium 8.5 mg/dL (8.4-10.2); Carbon Dioxide 38 mmol/L (22-30); Chloride 90 mmol/L (98-107); Glucose 81 mg/dL (74-99); Potassium 4.1 mmol/L (3.5-5.1); Sodium 138 mmol/L (137-145)
[2017-05-08] MEDS: SYMBICORT 160-4.5 MCG INHALER INHALATION SCH ×2 (08:34→19:48)
[2017-05-08] MEDS: IPRATROPIUM-ALBUTEROL 3 ML NEB INHALATION SCH ×4 (08:34→19:48)
[2017-05-08] MEDS: METOPROLOL TARTRATE 50 MG TAB PO SCH ×2 (09:11→22:02)
[2017-05-08] MEDS: FERROUS SULFATE 325 MG TAB PO SCH (09:12)
[2017-05-08] MEDS: LINAGLIPTIN 5 MG TABLET PO SCH (09:12)
--- NOTE | 2017-05-08 11:28 | P.PN ---
Subjective Patient was admitted for can start failure chronic diastolic dysfunction with acute exacerbation and patient is quite worked up today quite short of breath patient was started on IV Lasix drip and dopamine drip by cardiology patient appears to have significant pulmonary edema with elevated JVD appears to be in severe heart failure exacerbation is comparing of severe shortness of breath patient was unable to provide me any other review of systems because of his clinical condition patient doesn't look well at all 05/05/2017 Patient is looking better than yesterday but still short of breath significant improvement competitors today patient is bit hypotensive continues to be on dobutamine and IV Lasix can use to have significant bilateral pedal edema. 05/06/2017 Patient says his respiratory status improved compared to yesterday can use to have some shortness of breath and he says significant wheeze on exam and rhonchus breath sounds does have significant anasarca including significant bilateral lower limb swelling with the distended belly and subcutaneous edema of the skin of the abdomen 05/07/2017 Patient has minimal improving compared to yesterday although with increased with IV Lasix patient can he still significant anasarca bilateral pedal edema. 05/08/2017 Minimal improvement compared to yesterday wheezing did improve a little bit still wheezing quite a bit. Constitutional: Denied any fatigue denied any fever. Cardio vascular: denied any chest pain, palpitations Gastrointestinal denied any nausea vomiting Pulmonary: As mentioned in HPI Neurologic denied any new focal deficits Objective - Vital Signs Vital signs: Vital Signs Temp 97.2 F L 05/08/17 08:00 Pulse 92 05/08/17 08:48 Resp 20 05/08/17 08:00 BP 100/64 05/08/17 08:00 Pulse Ox 98 05/08/17 08:00 Intake & Output 05/07/17 05/08/17 05/08/17 18:59 06:59 18:59 Intake Total 607.833 441.636 360 Output Total 175 125 Balance 432.833 316.636 360 Weight 103.2 kg Intake: Intake, IV Titration 247.833 441.636 Amount DOBUTamine 250 mg In 391.636 Dextrose/Water 1 250ml. bag @ 5 MCG/KG/MIN 32.19 mls/hr IV .[id number] ON LICENSE OF [facility] Rx# :[id number] Furosemide 250 mg In 247.833 Sodium Chloride 0.9% 225 ml @ 10 MG/HR 10 mls/hr IVP .Q24H FAM Rx#: [id number] cefTAZidime 1 gm In 50 Sodium Chloride 0.9% 50 ml @ 100 mls/hr IVPB Q12HR ON LICENSE OF [facility] Rx#:[id number] Oral 360 360 Output: Urine 175 125 Other: # Voids 1 1 - Exam PHYSICAL EXAMINATION: GENERAL: The patient is alert and oriented x3, respiratory distress did improve significantly HEENT: Pupils are round and equally reacting to light. EOMI. No scleral icterus. No conjunctival pallor. Normocephalic, atraumatic. No pharyngeal erythema. No thyromegaly. CARDIOVASCULAR: S1 and S2 present. Does have elevated JVD and probably a systolic murmur in aortic area PULMONARY: Chest is clear to auscultation, significant wheezing was appreciated appears to have cardiac asthma course rhonchi. ABDOMEN: Soft, nontender, nondistended, normoactive bowel sounds. No palpable organomegaly. MUSCULOSKELETAL: No joint swelling or deformity. EXTREMITIES: No cyanosis, clubbing, does have bilateral pedal edema significant with venostasis and ulcers with cellulitis of bilateral lower extremitie ssignificant anasarca including significant bilateral lower limb swelling with the distended belly and subcutaneous edema of the skin of the abdomen NEUROLOGICAL: Gross neurological examination did not reveal any focal deficits. SKIN: No rashes. - Labs CBC & Chem 7: 05/08/17 05:31 05/08/17 05:31 Labs: Abnormal Lab Results - Last 24 Hours (Table) 05/07/17 05/07/17 05/07/17 Range/Units 11:55 17:05 20:51 RBC (4.30-5.90) m/uL Hgb (13.0-17.5) gm/dL Hct (39.0-53.0) % MCHC (31.0-37.0) g/dL RDW (11.5-15.5) % Lymphocytes # (1.0-4.8) k/uL Chloride (98-107) mmol/L Carbon Dioxide (22-30) mmol/L BUN (9-20) mg/dL Creatinine (0.66-1.25) mg/dL POC Glucose (mg/dL) 153 H 132 H 240 H (75-99) mg/dL 05/08/17 05/08/17 Range/Units 05:31 05:31 RBC 3.68 L (4.30-5.90) m/uL Hgb 10.4 L (13.0-17.5) gm/dL Hct 35.7 L (39.0-53.0) % MCHC 29.3 L (31.0-37.0) g/dL RDW 17.6 H (11.5-15.5) % Lymphocytes # 0.4 L (1.0-4.8) k/uL Chloride 90 L (98-107) mmol/L Carbon Dioxide 38 H (22-30) mmol/L BUN 71 H (9-20) mg/dL Creatinine 1.30 H (0.66-1.25) mg/dL POC Glucose (mg/dL) (75-99) mg/dL Microbiology - Last 24 Hours (Table) 05/02/17 11:16 Blood Culture - Preliminary Blood No Growth after 120 hours Assessment and Plan Plan: #1 diastolic congestive heart failure acute on chronic. Cardiogram with Doppler study performed on the second of this month revealed an ejection fraction of 50-55%. Patient now off dobutamine drip and is on IV Lasix which she'll continue with close monitoring of his EF patient can use to have significant wheezing was started on Symbicort and watch him #2 chronic persistent atrial fibrillation, on Coumadin for anticoagulation, patient's INR is bit soft diabetic patient will be given 3 mg of Coumadin today and recheck INR tomorrow #3 hypertension #4 hyperlipidemia #5 severe peripheral vascular disease with significant bilateral lower extremity ulcerations, infectious disease evaluated the patient and patient is being treated with broad-spectrum antibiotics for cellulitis and infected ulcers of the bilateral lower extremities. Patient's wound cultures are positive for Pseudomonas aeruginosa #6 chronic anasarca #7 chronic anemia #8 mild renal insufficiency #9 diabetes
[2017-05-08 11:51] LABS: Glucose,Whole Blood 242 mg/dL (75-99)
[2017-05-08] MEDS: MULTIVITAMINS, THERA 1 EACH TAB PO SCH (13:23)
--- NOTE | 2017-05-08 15:13 | PN ---
PROGRESS NOTE Mr. Tucker is an 82-year-old male with known history of congestive heart failure, history of atrial fibrillation, chronic kidney disease who presented with worsening symptoms. He is feeling better at this time. His breathing is slightly better today. He continued be on IV dobutamine and IV Lasix drip. He denies any dizziness or palpitation. He denies any nausea. He is not wheezing as much today. He continues to be on the IV Lasix drip and IV dobutamine. In addition to that, he is on metoprolol tartrate 100 mg twice a day and Coumadin. PHYSICAL EXAMINATION: Blood pressure 102/60 with a heart rate in the 90s. Lungs no wheezes with a few crackles. HEART: Irregularly irregular S1, S2. No S3. No rub. ABDOMEN: Soft, nontender, obese. Extremities chronic stasis with decreased edema. He has lost 5 pounds since yesterday. LAB DATA: BUN and creatinine 71 and 1.3. His potassium 4.1, hemoglobin of 10.4. IMPRESSION: 1. Congestive heart failure with preserved systolic function. 2. Renal failure. 3. Atrial fibrillation. 4. History of hypertension. 5. History of anemia. RECOMMENDATION: We will continue present therapy. Follow his renal function. If he is stable, then we will stop the IV dobutamine tomorrow. Unfortunately, the prognosis remains guarded. MMODL / IJN: [id number] /
[2017-05-08 16:57] LABS: Glucose,Whole Blood 173 mg/dL (75-99)
[2017-05-08] MEDS: WARFARIN 3 MG TAB PO SCH (17:09)
[2017-05-08] MEDS: FUROSEMIDE 250 MG in SODIUM CHLORIDE 0.9% 225 ML IVP SCH (17:09)
[2017-05-08 20:51] LABS: Glucose,Whole Blood 256 mg/dL (75-99)
[2017-05-09] MEDS: ACETAMINOPHEN TAB 325 MG TAB PO PRN (03:04)
[2017-05-09] MEDS: WATER IV SCH (03:47)
[2017-05-09] MEDS: DEXTROSE IV SCH (03:47)
[2017-05-09] MEDS: DOBUTAMINE IV SCH (03:47)
--- NOTE | 2017-05-09 06:01 | PN ---
PROGRESS NOTE DATE OF SERVICE: 05/08/2017 REASON FOR FOLLOWUP: 1. Bilateral lower extremity venous stasis ulcer and cellulitis. 2. Urinary tract infection. INTERVAL HISTORY: The patient is afebrile. Has been breathing comfortably. Denies having any chest pain. Some cough. No abdominal pain or any worsening of pain in the leg area. PHYSICAL EXAMINATION: On examination, blood pressure 90/62 with a pulse of 102, temperature of 97.2. He is 95% on 3 L nasal cannula. General description is an elderly male up in the chair in no distress. RESPIRATORY SYSTEM: Unlabored breathing. Coarse breath sounds at the bases bilaterally. HEART: S1, S2. Regular rate and rhythm. ABDOMEN: Soft, no tenderness. LABS: Hemoglobin 10.4, white count 8.9. BUN of 71, creatinine 1.30. DIAGNOSTIC IMPRESSION AND PLAN: Patient with bilateral lower extremity venous stasis ulcer and cellulitis with a wound culture positive Pseudomonas and also showing in the urine. The patient at this time will continue on Fortaz. Local wound care with Aquacel Silver dressing. Continue with supportive care. MMODL / IJN: [id number] /
[2017-05-09] MEDS: INSULIN ASPART 100 UNIT/ML 1 ML 10 ML VIAL SQ SCH ×2 (06:23→12:35)
[2017-05-09 06:32] LABS: Glucose,Whole Blood 109 mg/dL (75-99)
[2017-05-09 06:53] LABS: INR 2.5 (<1.2); Prothrombin Time 22.6 sec (9.0-12.0)
[2017-05-09 07:29] LABS: Anion Gap 10 mmol/L; Blood Urea Nitrogen 77 mg/dL (9-20); Calcium 8.7 mg/dL (8.4-10.2); Carbon Dioxide 35 mmol/L (22-30); Chloride 93 mmol/L (98-107); Glucose 94 mg/dL (74-99); Potassium 4.4 mmol/L (3.5-5.1); Sodium 138 mmol/L (137-145)
[2017-05-09] MEDS: SYMBICORT 160-4.5 MCG INHALER INHALATION SCH (08:04)
[2017-05-09] MEDS: IPRATROPIUM-ALBUTEROL 3 ML NEB INHALATION SCH ×4 (08:05→19:25)
[2017-05-09 09:11] VITALS: TEMP 96.7
[2017-05-09] MEDS ORDERED: NOREPINEPHRIN 4 MG-0.9% NS PMX 4 MG/250 ML ML IV SCH (09:30)
[2017-05-09] MEDS ORDERED: MORPHINE SULFATE 2 MG/ML SYRINGE IVP PRN (09:31)
[2017-05-09] MEDS ORDERED: PROPOFOL 1,000 MG in EMPTY BAG 1 BAG IV SCH (09:45)
[2017-05-09] MEDS ORDERED: CISATRACURIUM 2 MG/ML 5 ML VIAL IV ONE ×2 (09:55→10:36)
[2017-05-09 09:57] LABS: Glucose,Whole Blood 122 mg/dL (75-99)
[2017-05-09] MEDS ORDERED: EPINEPHrine 10 ML SYRINGE (0.1 MG/ML) ONE (09:59)
--- NOTE | 2017-05-09 10:43 | PN ---
PROGRESS NOTE Mr. Tucker is an 82-year-old male with known history of CHF, history of persistent chronic atrial fibrillation, who this morning became unresponsive, had a brief CPR and required mechanical ventilation. According to nursing staff, he had an episode of asystole. He is intubated in the ICU. He had no documented ventricular tachycardia or ventricular fibrillation. His rhythm at this time is atrial fibrillation with controlled ventricular response and he is on no pressors. He was on IV Lasix drip earlier. He is on metoprolol tartrate 100 mg twice a day in addition to Coumadin. PHYSICAL EXAMINATION: Blood pressure running in the low 100s with the heart rate in the 90s to 100. He is intubated. LUNGS: Clear anteriorly. HEART: Irregular, irregular. S1, S2. No S3 with systolic murmur. ABDOMEN: Soft, obese, nontender. EXTREMITIES: Dressing in place bilaterally. LAB DATA: Lab data revealed BUN and creatinine 77, 1.37. Potassium 4.4. INR of 2.5. IMPRESSION: 1. Cardiac arrest. Full details are not available. It appears the patient had an asystole episode. 2. Symptoms of congestive heart failure with preserved left ventricular systolic function. 3. Cellulitis. 4. Renal failure. 5. Chronic persistent atrial fibrillation. 6. Chronic kidney disease. RECOMMENDATION: At this time, patient in the ICU. He will be seen by Dr. Au regarding his pulmonary status. We will follow his lab data and his EKG and depending on his progress, further recommendation will be made. Unfortunately, the prognosis is guarded. MMODL / IJN: [id number] /
--- NOTE | 2017-05-09 11:18 | P.CNPUL ---
History of Present Illness Consult date: 05/09/17 Reason for consult: other Chief complaint: Cardiopulmonary arrest History of present illness: Consult dated 05/09/2017 This is an 82-year-old male who apparently presented to the emergency department with difficulty breathing. He apparently was recently inpatient was discharged not long ago. The patient apparently had worsening shortness of breath over couple days prior to admission. He was admitted with a apparently with a diagnosis of congestive heart failure. In addition, he had some chronic nonhealing leg wounds infected with Pseudomonas. The patient has lower extremity edema. The patient was admitted to the hospital on May 02 with a diagnosis of heart failure. He did also have a dry nonproductive cough. Sometime today, this morning, the patient had a cardiopulmonary arrest. He received cardiopulmonary resuscitation with chest compressions was intubated and was given one epinephrine dose. He was transferred here to the ICU. The patient was placed on propofol at 20 mics per kilogram per minute. The patient was also given the norepinephrine for blood pressure support. The IV was appointment 9 at 20. The patient's vent settings included the assist control mode rate of 14 tidal volume 450 FiO2 100% and PEEP of 5. Arterial blood gases are pending. I did put in a left femoral vein triple lumen catheter and a left femoral art line. Patient very poor IV access. The chest x-ray showed bilateral large effusions and evidence of heart failure. Prior, he was on both IV dopamine and Lasix drip. We did have a conversation with the granddaughter about CODE STATUS. The patient apparently would not want to be on long-term life support. On the way we left it with her was that we would keep him on likely for a couple days and reevaluate him in a couple days and decided that point what to do. He apparently has quite severe cardiomyopathy and heart failure. Review of Systems ROS unobtainable: due to endotracheal tube Past Medical History Past Medical History: Atrial Fibrillation, Coronary Artery Disease (CAD), Heart Failure, Diabetes Mellitus, Hyperlipidemia, Hypertension Additional Past Medical History / Comment(s): Chronic bilateral pleural effusions, chronic atrial fibrillation, obesity, peripheral vascular disease, hypertension, hyperlipidemia, chronic renal failure, coronary artery disease, chronic anemia, large umbilical hernia, impaired hearing/deafness, Congestion heart failure with diastolic dysfunction chronic lower extremity edema and chronic venous ulcers of the lower extremities bilaterally with previous infections with Pseudomonas, MSSA and strep group B, peripheral vascular disease , recurrent cellulitis and superficial ulceration of the lower extremities bilaterally History of Any Multi-Drug Resistant Organisms: None Reported Date of last positivie culture/infection: None MDRO Source:: None Past Surgical History: Heart Catheterization, Hernia Repair Additional Past Surgical History / Comment(s): COLONOSCOPY 3, right inguinal hernia repair, bilateral cataract removal and lens implants, NASAL FRACTURE Past Anesthesia/Blood Transfusion Reactions: No Reported Reaction Smoking Status: Former smoker - Past Family History Mother Family Medical History: Diabetes Mellitus Father Family Medical History: Prostate Disorder Additional Family Medical History / Comment(s): bowel disorder Medications and Allergies Home Medications Medication Instructions Recorded Confirmed Type sitaGLIPtin [Januvia] 100 mg PO DAILY 09/15/15 05/02/17 History Multivitamins, Thera [Multivitamin 1 tab PO DAILY 02/09/17 05/02/17 History (formulary)] Polyethylene Glycol 3350 [Miralax] 17 gm PO DAILY PRN 02/09/17 05/02/17 History Ferrous Gluconate 324 mg PO BID 03/16/17 05/02/17 History Warfarin [Coumadin] 3 mg PO SUTUTHSA 03/16/17 05/02/17 History Acetaminophen Tab [Tylenol] 650 mg PO Q6HR PRN tab 03/25/17 05/02/17 Rx Ipratropium-Albuterol Nebulize 3 ml INHALATION RT-QID #120 03/25/17 05/02/17 Rx [Duoneb 0.5 mg-3 mg/3 ml Soln] ampul.neb Metoprolol Tartrate [Lopressor] 100 mg PO BID #120 tab 03/25/17 05/02/17 Rx Docusate [Colace] 100 mg PO BID PRN 04/24/17 05/02/17 History Warfarin Sodium [Coumadin] 4.5 mg PO DAILY 04/24/17 05/02/17 History Cephalexin [Keflex] 500 mg PO TID #21 cap 04/29/17 05/02/17 Rx Furosemide [Lasix] 60 mg PO BID@0900,1600 #180 tab 04/29/17 05/02/17 Rx Allergies Allergy/AdvReac Type Severity Reaction Status Date / Time ciprofloxacin [From Cipro] Allergy Rash/Hives Verified 05/02/17 11:22 Apseirt-Kkv-Eyj Reductase Allergy Rash/Hives Verified 05/02/17 11:22 Inhibitor Physical Exam Osteopathic Statement: *. No significant issues noted on an osteopathic structural exam other than those noted in the History and Physical/Consult. Vitals: Vital Signs Temp Pulse Pulse Resp BP Pulse Ox 05/09/17 08:16 112 H 05/09/17 08:07 104 H 05/09/17 08:00 96.7 F L 72 18 94/55 99 05/09/17 04:00 96.8 F L 88 18 88/62 98 05/09/17 00:00 96.9 F L 83 18 91/64 98 05/08/17 20:06 104 H 05/08/17 20:00 96.8 F L 87 18 101/65 97 05/08/17 19:49 102 H 05/08/17 17:00 97.2 F L 56 L 20 90/62 95 05/08/17 16:00 90 05/08/17 15:51 90 05/08/17 12:00 97.0 F L 92 20 102/64 99 05/08/17 11:36 88 05/08/17 11:26 88 Intake and Output 05/08/17 05/09/17 05/09/17 22:59 06:59 14:59 Intake Total 490.833 410 Output Total 350 250 Balance 140.833 160 Intake: IV 110 Furosemide 250 mg In 110 Sodium Chloride 0.9% 225 ml @ 10 MG/HR 10 mls/hr IVP .Q24H FAM Rx#: [id number] Intake, IV Titration 490.833 300 Amount DOBUTamine 250 mg In 250 250 Dextrose/Water 1 250ml. bag @ 5 MCG/KG/MIN 32.19 mls/hr IV .Q7H46M FAM Rx# :[id number] Furosemide 250 mg In 240.833 Sodium Chloride 0.9% 225 ml @ 10 MG/HR 10 mls/hr IVP .Q24H FAM Rx#: [id number] cefTAZidime 1 gm In 50 Sodium Chloride 0.9% 50 ml @ 100 mls/hr IVPB Q12HR FAM Rx#:[id number] Output: Urine 350 250 Other: Voiding Method Urinal Urinal Urinal # Voids 1 0 Weight 110.1 kg Exam is limited. The patient's currently sedated HEENT examination is grossly unremarkable. He's had a orally place NG tube and endotracheal tube. Neck supple. Full range of motion. There is neck vein distention. Cardiovascular examination reveals a regular rhythm rate. Is clearly in atrial fibrillation which is underlying rhythm. Rate is about 100 bpm. Lungs reveal some coarse rhonchi. Some by lateral crackles. Abdomen is obese. He does have an umbilicus hernia. Extremities reveal significant edema. He's got some acrocyanosis. Skin is without rash. There are many ecchymoses. Neurologic examination is difficult to perform. Results - Laboratory Findings CBC and BMP: 05/08/17 05:31 05/09/17 05:56 PT/INR, D-dimer PT 22.6 sec (9.0-12.0) H 05/09/17 05:56 INR 2.5 (<1.2) H 05/09/17 05:56 Abnormal lab findings: Abnormal Labs 05/02/17 05/02/17 05/02/17 11:16 11:16 11:16 WBC 13.5 H RBC 4.27 L Hgb 12.5 L Hct MCV MCHC 29.9 L RDW 17.4 H Neutrophils # 12.2 H Neutrophils # (Manual) Lymphocytes # 0.3 L Lymphocytes # (Manual) Metamyelocytes # (Man) Myelocytes # (Manual) PT INR Potassium 5.4 H Chloride 92 L Carbon Dioxide 35 H BUN 67 H Creatinine Glucose 154 H POC Glucose (mg/dL) Hemoglobin A1c ALT 20 L Total Creatine Kinase 36 L Total Protein Albumin 05/02/17 05/03/17 05/03/17 11:16 06:06 06:37 WBC RBC Hgb Hct MCV MCHC RDW Neutrophils # Neutrophils # (Manual) Lymphocytes # Lymphocytes # (Manual) Metamyelocytes # (Man) Myelocytes # (Manual) PT 17.5 H INR 1.9 H Potassium Chloride 93 L Carbon Dioxide 37 H BUN 71 H Creatinine 1.46 H Glucose 147 H POC Glucose (mg/dL) 143 H Hemoglobin A1c ALT Total Creatine Kinase Total Protein Albumin 3.3 L 05/03/17 05/03/17 05/03/17 06:37 06:37 12:25 WBC RBC Hgb Hct MCV MCHC RDW Neutrophils # Neutrophils # (Manual) Lymphocytes # Lymphocytes # (Manual) Metamyelocytes # (Man) Myelocytes # (Manual) PT 17.1 H INR 1.9 H Potassium Chloride Carbon Dioxide BUN Creatinine Glucose POC Glucose (mg/dL) 208 H Hemoglobin A1c 6.9 H ALT Total Creatine Kinase Total Protein Albumin 05/03/17 05/03/17 05/04/17 16:47 20:46 05:30 WBC 11.1 H RBC 3.88 L Hgb 11.4 L Hct 38.9 L MCV 100.1 H MCHC 29.2 L RDW 17.8 H Neutrophils # 9.7 H Neutrophils # (Manual) Lymphocytes # 0.3 L Lymphocytes # (Manual) Metamyelocytes # (Man) Myelocytes # (Manual) PT INR Potassium Chloride Carbon Dioxide BUN Creatinine Glucose POC Glucose (mg/dL) 166 H 145 H Hemoglobin A1c ALT Total Creatine Kinase Total Protein Albumin 05/04/17 05/04/17 05/04/17 05:30 05:30 05:52 WBC RBC Hgb Hct MCV MCHC RDW Neutrophils # Neutrophils # (Manual) Lymphocytes # Lymphocytes # (Manual) Metamyelocytes # (Man) Myelocytes # (Manual) PT 20.2 H INR 2.2 H Potassium Chloride 93 L Carbon Dioxide 39 H BUN 73 H Creatinine 1.41 H Glucose 142 H POC Glucose (mg/dL) 134 H Hemoglobin A1c ALT Total Creatine Kinase Total Protein Albumin 3.2 L 05/04/17 05/04/17 05/04/17 11:39 16:19 20:56 WBC RBC Hgb Hct MCV MCHC RDW Neutrophils # Neutrophils # (Manual) Lymphocytes # Lymphocytes # (Manual) Metamyelocytes # (Man) Myelocytes # (Manual) PT INR Potassium Chloride Carbon Dioxide BUN Creatinine Glucose POC Glucose (mg/dL) 179 H 146 H 180 H Hemoglobin A1c ALT Total Creatine Kinase Total Protein Albumin 05/05/17 05/05/17 05/05/17 05:32 05:32 05:32 WBC RBC 3.55 L Hgb 10.5 L Hct 34.3 L MCV MCHC 30.5 L RDW 17.7 H Neutrophils # Neutrophils # (Manual) Lymphocytes # 0.3 L Lymphocytes # (Manual) Metamyelocytes # (Man) Myelocytes # (Manual) PT 20.0 H INR 2.2 H Potassium Chloride 96 L Carbon Dioxide 35 H BUN 69 H Creatinine Glucose 125 H POC Glucose (mg/dL) Hemoglobin A1c ALT 19 L Total Creatine Kinase Total Protein 5.9 L Albumin 2.7 L 05/05/17 05/05/17 05/05/17 05:49 11:25 13:28 WBC RBC 3.58 L Hgb 10.6 L Hct 33.9 L MCV MCHC RDW 16.5 H Neutrophils # Neutrophils # (Manual) 7.74 H Lymphocytes # Lymphocytes # (Manual) 0.55 L Metamyelocytes # (Man) 0.09 H Myelocytes # (Manual) 0.09 H PT INR Potassium Chloride Carbon Dioxide BUN Creatinine Glucose POC Glucose (mg/dL) 130 H 218 H Hemoglobin A1c ALT Total Creatine Kinase Total Protein Albumin 05/05/17 05/05/17 05/06/17 16:25 20:51 05:33 WBC RBC 3.63 L Hgb 10.7 L Hct 34.9 L MCV MCHC 30.7 L RDW 16.5 H Neutrophils # 7.8 H Neutrophils # (Manual) Lymphocytes # 0.3 L Lymphocytes # (Manual) Metamyelocytes # (Man) Myelocytes # (Manual) PT INR Potassium Chloride Carbon Dioxide BUN Creatinine Glucose POC Glucose (mg/dL) 168 H 208 H Hemoglobin A1c ALT Total Creatine Kinase Total Protein Albumin 05/06/17 05/06/17 05/06/17 05:33 05:33 05:53 WBC RBC Hgb Hct MCV MCHC RDW Neutrophils # Neutrophils # (Manual) Lymphocytes # Lymphocytes # (Manual) Metamyelocytes # (Man) Myelocytes # (Manual) PT 19.7 H INR 2.2 H Potassium Chloride 93 L Carbon Dioxide 38 H BUN 67 H Creatinine Glucose 113 H POC Glucose (mg/dL) 118 H Hemoglobin A1c ALT Total Creatine Kinase Total Protein Albumin 3.0 L 05/06/17 05/06/17 05/06/17 11:45 16:38 21:17 WBC RBC Hgb Hct MCV MCHC RDW Neutrophils # Neutrophils # (Manual) Lymphocytes # Lymphocytes # (Manual) Metamyelocytes # (Man) Myelocytes # (Manual) PT INR Potassium Chloride Carbon Dioxide BUN Creatinine Glucose POC Glucose (mg/dL) 141 H 156 H 186 H Hemoglobin A1c ALT Total Creatine Kinase Total Protein Albumin 05/07/17 05/07/17 05/07/17 05:52 06:12 06:12 WBC RBC 4.22 L Hgb 12.1 L Hct MCV MCHC 29.8 L RDW 17.4 H Neutrophils # 8.7 H Neutrophils # (Manual) Lymphocytes # 0.4 L Lymphocytes # (Manual) Metamyelocytes # (Man) Myelocytes # (Manual) PT INR Potassium Chloride 95 L Carbon Dioxide 34 H BUN 72 H Creatinine 1.28 H Glucose POC Glucose (mg/dL) 111 H Hemoglobin A1c ALT Total Creatine Kinase Total Protein Albumin 3.3 L 05/07/17 05/07/17 05/07/17 06:12 11:55 17:05 WBC RBC Hgb Hct MCV MCHC RDW Neutrophils # Neutrophils # (Manual) Lymphocytes # Lymphocytes # (Manual) Metamyelocytes # (Man) Myelocytes # (Manual) PT 16.7 H INR 1.8 H Potassium Chloride Carbon Dioxide BUN Creatinine Glucose POC Glucose (mg/dL) 153 H 132 H Hemoglobin A1c ALT Total Creatine Kinase Total Protein Albumin 05/07/17 05/08/17 05/08/17 20:51 05:31 05:31 WBC RBC 3.68 L Hgb 10.4 L Hct 35.7 L MCV MCHC 29.3 L RDW 17.6 H Neutrophils # Neutrophils # (Manual) Lymphocytes # 0.4 L Lymphocytes # (Manual) Metamyelocytes # (Man) Myelocytes # (Manual) PT INR Potassium Chloride 90 L Carbon Dioxide 38 H BUN 71 H Creatinine 1.30 H Glucose POC Glucose (mg/dL) 240 H Hemoglobin A1c ALT Total Creatine Kinase Total Protein Albumin 05/08/17 05/08/17 05/08/17 11:48 16:40 20:49 WBC RBC Hgb Hct MCV MCHC RDW Neutrophils # Neutrophils # (Manual) Lymphocytes # Lymphocytes # (Manual) Metamyelocytes # (Man) Myelocytes # (Manual) PT INR Potassium Chloride Carbon Dioxide BUN Creatinine Glucose POC Glucose (mg/dL) 242 H 173 H 256 H Hemoglobin A1c ALT Total Creatine Kinase Total Protein Albumin 05/09/17 05/09/17 05/09/17 05:56 05:56 06:11 WBC RBC Hgb Hct MCV MCHC RDW Neutrophils # Neutrophils # (Manual) Lymphocytes # Lymphocytes # (Manual) Metamyelocytes # (Man) Myelocytes # (Manual) PT 22.6 H INR 2.5 H Potassium Chloride 93 L Carbon Dioxide 35 H BUN 77 H Creatinine 1.37 H Glucose POC Glucose (mg/dL) 109 H Hemoglobin A1c ALT Total Creatine Kinase Total Protein Albumin 05/09/17 09:44 WBC RBC Hgb Hct MCV MCHC RDW Neutrophils # Neutrophils # (Manual) Lymphocytes # Lymphocytes # (Manual) Metamyelocytes # (Man) Myelocytes # (Manual) PT INR Potassium Chloride Carbon Dioxide BUN Creatinine Glucose POC Glucose (mg/dL) 122 H Hemoglobin A1c ALT Total Creatine Kinase Total Protein Albumin - Diagnostic Findings Chest x-ray: image reviewed (X-rays labs and medications are all reviewed.) Assessment and Plan (1) Chronic wound of extremity Current Visit: Yes Status: Acute Code(s): WPI5246 - SNOMED Code(s): 838522101 (2) Hypoxia Current Visit: Yes Status: Acute Code(s): R09.02 - HYPOXEMIA SNOMED Code(s ): 522095885 (3) Systolic CHF, acute on chronic Current Visit: Yes Status: Acute Code(s): I50.23 - ACUTE ON CHRONIC SYSTOLIC (CONGESTIVE) HEART FAILURE SNOMED Code(s): 543378835 (4) Acute renal failure (ARF) Current Visit: No Status: Acute Code(s): N17.9 - ACUTE KIDNEY FAILURE, UNSPECIFIED SNOMED Code(s): 09913227 (5) Acute respiratory failure with hypoxia Current Visit: No Status: Acute Code(s): J96.01 - ACUTE RESPIRATORY FAILURE WITH HYPOXIA SNOMED Code(s): 64738013 (6) Acute urinary retention Current Visit: No Status: Acute Priority: High Code(s): R33.8 - OTHER RETENTION OF URINE SNOMED Code(s): 843528158 (7) Atrial fibrillation Current Visit: No Status: Acute Code(s): I48.91 - UNSPECIFIED ATRIAL FIBRILLATION SNOMED Code(s): 44280625 (8) Cellulitis Current Visit: No Status: Acute Code(s): L03.90 - CELLULITIS, UNSPECIFIED SNOMED Code(s): 223349046 (9) Congestive heart failure Current Visit: No Status: Acute Code(s): I50.9 - HEART FAILURE, UNSPECIFIED SNOMED Code(s): 26712767 (10) HTN (hypertension) Current Visit: No Status: Acute Code(s): I10 - ESSENTIAL (PRIMARY) HYPERTENSION SNOMED Code(s): 55049662 (11) Hyperlipemia Current Visit: No Status: Acute Code(s): E78.5 - HYPERLIPIDEMIA, UNSPECIFIED SNOMED Code(s): 75481861 (12) Hypotension Current Visit: No Status: Acute Code(s): I95.9 - HYPOTENSION, UNSPECIFIED SNOMED Code(s): 15880024 (13) Phimosis Current Visit: No Status: Acute Priority: High Code(s): N47.1 - PHIMOSIS SNOMED Code(s): 835171236 (14) Pleural effusion due to CHF (congestive heart failure) Current Visit: No Status: Acute Code(s): I50.9 - HEART FAILURE, UNSPECIFIED SNOMED Code(s): 83103735 (15) Pseudomonas infection Current Visit: No Status: Acute Code(s): B96.5 - PSEUDOMONAS (MALLEI) CAUSING DISEASES CLASSD [facility] SNOMED Code(s): 88876596 (16) Sepsis Current Visit: No Status: Acute Code(s): A41.9 - SEPSIS, UNSPECIFIED ORGANISM SNOMED Code(s): 20500925 (17) Venous stasis ulcer of left lower extremity Current Visit: No Status: Acute Code(s): I83.029 - VARICOSE VEINS OF LEFT LOWER EXTREMITY W ULCER OF UNSP SITE SNOMED Code(s): 242293911 (18) Venous stasis ulcer of right lower extremity Current Visit: No Status: Acute Code(s): I83.019 - VARICOSE VEINS OF RIGHT LOWER EXTREMITY W ULCER OF UNSP SITE SNOMED Code(s): 352049807 (19) Cardiopulmonary arrest with successful resuscitation Current Visit: Yes Status: Acute Code(s): I46.9 - CARDIAC ARREST, CAUSE UNSPECIFIED SNOMED Code(s): 103913588 (20) Asystole Current Visit: Yes Status: Acute Code(s): I46.9 - CARDIAC ARREST, CAUSE UNSPECIFIED SNOMED Code(s): 576957837 Plan: Plan dated 05/09/2017 The patient's and down pretty bad shape. A left femoral art line left femoral triple-lumen catheter were placed. The patient's on propofol for sedation and norepinephrine for blood pressure support. The patient is on the ventilator. Arterial blood gas will be done. Chest x-ray was ordered. I review the labs and medications. We'll discontinue the unnecessary medications. The patient will be on updrafts with DuoNeb 4 times a day and when necessary. Additional recommendations and suggestions are forthcoming. Prognosis is poor. We did have end of life discussions with the granddaughter. She is to speak to her mother who is the DURABLE POWER OF SYNTHETIC CHEMIST. Time with Patient: Greater than 30
[2017-05-09 11:23] LABS: ABG PCO2 43 mmHg (35-45); ABG PH 7.48 (7.35-7.45); ABG PO2 284 mmHg (83-108)
[2017-05-09 11:24] LABS: ABG Base Excess 7.9 mmol/L; ABG HCO3 32 mmol/L (21-25); ABG Oxygen Saturation 99.9 % (94-97); ABG TCO2 33 mmol/L (19-24)
--- NOTE | 2017-05-09 11:59 | XR ---
EXAMINATION TYPE: XR chest 1V portable DATE OF EXAM: 05/09/2017 HISTORY: Shortness of breath. COMPARISON: 05/05/2017 TECHNIQUE: Single view of the chest is submitted. FINDINGS: Demonstrated are scattered senescent parenchymal change. Endotracheal tube is appropriately placed a s is NG tube. Bilateral pleural effusions with underlying patchy infiltrates. Correlate for underlying pneumonia. S uperimposed congestive failure difficult to exclude. The heart is stable. Hilar and mediastinal structures are within normal limits. Degenerative changes are seen of the dorsal spine. IMPRESSION: 1. Bilateral pleural effusions with underlying patchy infiltrates. Correlate for underlying pneumoni a.Superimposed congestive failure difficult to exclude.
--- NOTE | 2017-05-09 12:50 | OP ---
OPERATIVE REPORT DATE OF SERVICE: 05/09/2017 PROCEDURE: Left femoral arterial line placement. INDICATION: Closer monitoring of blood pressure and blood gas monitoring. DESCRIPTION OF PROCEDURE: A time-out was completed verifying correct patient, procedure, site, positioning, and implant(s) or special equipment if applicable. Javier's test was performed to ensure adequate perfusion. The patient's left groin was prepped and draped in sterile fashion. Next, 1% Lidocaine was used to anesthetize the area. An 18G Arrow arterial line was introduced into the femoral artery. The catheter was threaded over the guide wire and the needle was removed with appropriate pulsatile blood return and waveform. Blood loss was minimal. The catheter was then sutured in place to the skin and a sterile dressing applied by the nurse. Perfusion to the extremity distal to the point of catheter insertion was checked and found to be adequate. The patient tolerated the procedure well and there were no complications. MMODL / IJN: [id number] /
--- NOTE | 2017-05-09 12:50 | OP ---
OPERATIVE REPORT DATE OF SERVICE: 05/09/2017. PROCEDURE: Left femoral triple lumen catheter placement. INDICATION: Fluid administration, administration of vasopressors. A time-out was completed verifying correct patient, procedure, site, positioning, and implant(s) or special equipment if applicable. The patient was placed in a dependent position appropriate for triple lumen catheter placement based on the vein to be cannulated. The patient's left groin was prepped and draped in sterile fashion. Next, 1% Lidocaine was used to anesthetize the surrounding skin area. A triple lumen 9F Cordis catheter was introduced into the left common femoral vein using Seldinger technique. The catheter was threaded smoothly over the guide wire and appropriate blood return was obtained from all three ports. Each lumen of the catheter was evacuated of air and flushed with sterile saline. The catheter was then sutured in place to the skin and a sterile dressing applied by the nurse. Perfusion to the extremity distal to the point of catheter insertion was checked and found to be adequate. There were no immediate complications. MMODL / IJN: [id number] /
[2017-05-09 13:12] VITALS: RESP 20
[2017-05-09] MEDS: MULTIVITAMINS, THERA 1 EACH TAB PO SCH (13:13)
[2017-05-09 14:13] VITALS: BP 86/62; PULSE 75
[2017-05-09] MEDS ORDERED: MORPHINE SULFATE 2 MG/ML SYRINGE IVP ONE (15:04)
[2017-05-09] MEDS ORDERED: ARTIFICIAL TEARS-HYPROMELLOSE DROPS 15 ML BTL BOTH EYES PRN (15:04)
[2017-05-09] MEDS ORDERED: HALOPERIDOL LACTATE 5 MG/ML 1 ML VIAL IM PRN (15:04)
[2017-05-09] MEDS ORDERED: DRY MOUTH SPRAY 44.3 SPRAY/44.3 ML SPRAY MUCOUS MEM PRN (15:04)
[2017-05-09] MEDS ORDERED: LORazepam 2 MG/ML INJ IV PRN (15:04)
[2017-05-09] MEDS ORDERED: POLYETHYLENE GLYCOL 3350 17 GM POWD.PACK PO PRN (15:04)
[2017-05-09] MEDS ORDERED: MORPHINE SULFATE (100 MG/2 ML) 100 MG in SODIUM CHLORIDE 0.9% 100 ML IV SCH (15:30)
--- NOTE | 2017-05-09 15:39 | P.PN ---
Subjective Patient was admitted for can start failure chronic diastolic dysfunction with acute exacerbation and patient is quite worked up today quite short of breath patient was started on IV Lasix drip and dopamine drip by cardiology patient appears to have significant pulmonary edema with elevated JVD appears to be in severe heart failure exacerbation is comparing of severe shortness of breath patient was unable to provide me any other review of systems because of his clinical condition patient doesn't look well at all 05/05/2017 Patient is looking better than yesterday but still short of breath significant improvement competitors today patient is bit hypotensive continues to be on dobutamine and IV Lasix can use to have significant bilateral pedal edema. 05/06/2017 Patient says his respiratory status improved compared to yesterday can use to have some shortness of breath and he says significant wheeze on exam and rhonchus breath sounds does have significant anasarca including significant bilateral lower limb swelling with the distended belly and subcutaneous edema of the skin of the abdomen 05/07/2017 Patient has minimal improving compared to yesterday although with increased with IV Lasix patient can he still significant anasarca bilateral pedal edema. 05/08/2017 Minimal improvement compared to yesterday wheezing did improve a little bit still wheezing quite a bit. 05/09/2017 Patient had cardiorespiratory arrest with pulseless elliptical activity was resuscitated subsequently intubated transferred to ICU and patient is presently on levo fed. At extensive discussion with the family members patient the was aggressively managed with dobutamine and IV Lasix in spite of which there is no significant improvement patient has extremely poor quality of life patient has multiple hospitalizations in recent time considering all of these and there is no anticipation of significant improvement in his overall clinical condition prognosis is extremely poor because of chronic diastolic dysfunction and nonimprovement with aggressive therapy, the most appropriate management would be terminal extubation and hospice and the family wanted him to be comfort care area the possibility of him getting extubated is extremely low because of his poor cardiorespiratory status at baseline Objective - Vital Signs Vital signs: Vital Signs Temp 96.7 F L 05/09/17 08:00 Pulse 75 05/09/17 14:00 Resp 20 05/09/17 14:00 BP 86/62 05/09/17 14:00 Pulse Ox 98 05/09/17 14:00 Intake & Output 05/08/17 05/09/17 05/09/17 18:59 06:59 18:59 Intake Total 1330.833 410 235.333 Output Total 475 350 Balance 855.833 60 235.333 Weight 110.1 kg Intake: IV 110 Furosemide 250 mg In 110 Sodium Chloride 0.9% 225 ml @ 10 MG/HR 10 mls/hr IVP .Q24H FAM Rx#: [id number] Intake, IV Titration 490.833 300 235.333 Amount DOBUTamine 250 mg In 250 250 Dextrose/Water 1 250ml. bag @ 5 MCG/KG/MIN 32.19 mls/hr IV .Q7H46M FAM Rx# :[id number] Furosemide 250 mg In 240.833 Sodium Chloride 0.9% 225 ml @ 10 MG/HR 10 mls/hr IVP .Q24H FAM Rx#: [id number] Propofol 1,000 mg In 135.333 Empty Bag 1 bag @ Titrate IV .Q0M FAM Rx#: [id number] cefTAZidime 1 gm In 50 100 Sodium Chloride 0.9% 50 ml @ 100 mls/hr IVPB Q12HR FAM Rx#:[id number] Oral 840 Output: Urine 475 350 Other: Voiding Method Urinal Incontinent # Voids 1 0 ABP, PAP, CO, CI - Last Documented Arterial Blood Pressure 87/54 - Exam PHYSICAL EXAMINATION: GENERAL: Patient is intubated sedated, HEENT: On and equally reacting to light patient does have pupillary reflex and gag reflex CARDIOVASCULAR: S1 and S2 present. Does have elevated JVD and probably a systolic murmur in aortic area PULMONARY: Chest is clear to auscultation, significant wheezing was appreciated appears to have cardiac asthma course rhonchi. ABDOMEN: Soft, nontender, nondistended, normoactive bowel sounds. No palpable organomegaly. MUSCULOSKELETAL: No joint swelling or deformity. EXTREMITIES: No cyanosis, clubbing, does have bilateral pedal edema significant with venostasis and ulcers with cellulitis of bilateral lower extremitie ssignificant anasarca including significant bilateral lower limb swelling with the distended belly and subcutaneous edema of the skin of the abdomen NEUROLOGICAL: Able to assess patient is intubated sedated, RASS score of -2 SKIN: No rashes. - Labs CBC & Chem 7: 05/08/17 05:31 05/09/17 05:56 Labs: Abnormal Lab Results - Last 24 Hours (Table) 05/08/17 05/08/17 05/09/17 Range/Units 16:40 20:49 05:56 PT (9.0-12.0) sec INR (<1.2) ABG pH (7.35-7.45) ABG pO2 (83-108) mmHg ABG HCO3 (21-25) mmol/L ABG Total CO2 (19-24) mmol/L ABG O2 Saturation (94-97) % Chloride 93 L (98-107) mmol/L Carbon Dioxide 35 H (22-30) mmol/L BUN 77 H (9-20) mg/dL Creatinine 1.37 H (0.66-1.25) mg/dL POC Glucose (mg/dL) 173 H 256 H (75-99) mg/dL 05/09/17 05/09/17 05/09/17 Range/Units 05:56 06:11 09:44 PT 22.6 H (9.0-12.0) sec INR 2.5 H (<1.2) ABG pH (7.35-7.45) ABG pO2 (83-108) mmHg ABG HCO3 (21-25) mmol/L ABG Total CO2 (19-24) mmol/L ABG O2 Saturation (94-97) % Chloride (98-107) mmol/L Carbon Dioxide (22-30) mmol/L BUN (9-20) mg/dL Creatinine (0.66-1.25) mg/dL POC Glucose (mg/dL) 109 H 122 H (75-99) mg/dL 05/09/17 Range/Units 11:15 PT (9.0-12.0) sec INR (<1.2) ABG pH 7.48 H (7.35-7.45) ABG pO2 284 H (83-108) mmHg ABG HCO3 32 H (21-25) mmol/L ABG Total CO2 33 H (19-24) mmol/L ABG O2 Saturation 99.9 H (94-97) % Chloride (98-107) mmol/L Carbon Dioxide (22-30) mmol/L BUN (9-20) mg/dL Creatinine (0.66-1.25) mg/dL POC Glucose (mg/dL) (75-99) mg/dL Microbiology - Last 24 Hours (Table) 05/02/17 11:16 Blood Culture - Final Blood No Growth after 144 hours Assessment and Plan Plan: #1 diastolic congestive heart failure acute on chronic. Had cardiorespiratory arrest intubated sedated now #2 chronic persistent atrial fibrillation, #3 hypertension #4 hyperlipidemia #5 severe peripheral vascular disease with cellulitis of bilateral lower extremities and multiple ulcerations and owns. #6 chronic anasarca #7 chronic anemia #8 mild renal insufficiency #9 diabetes Plan: Patient will be extubated terminally and patient will be started on comfort measures patient will be transferred out of ICU
[2017-05-09] MEDS ORDERED: SCOPOLAMINE 1.5MG/72HR PATCH TRANSDERM PRN (16:00)
[2017-05-09] MEDS ORDERED: ATROPINE OPHTH SOLN 1% 5ML BTL SUBLINGUAL SCH (18:00)
[2017-05-09] MEDS ORDERED: FORMOTEROL FUMARATE 20 MCG/2 ML NEBU INHALATION SCH (20:00)
[2017-05-09] MEDS ORDERED: BUDESONIDE 1 MG/2 ML NEBU INHALATION SCH (20:00)
[2017-05-09] MEDS ORDERED: DOCUSATE 100 MG CAP PO SCH (21:00)
--- NOTE | 2017-05-09 22:11 | PN ---
PROGRESS NOTE DATE OF SERVICE: 05/09/2016. REASON FOR FOLLOW UP: Bilateral lower extremity venous stasis ulcer, cellulitis and UTI. INTERVAL HISTORY: The patient is seen on rounds this morning. Early this morning the patient did went into cardiac arrest. The patient was resuscitated and transferred down to the ICU. The patient was intubated on the vent and required placement of a central and an art line. The patient did require pressor support for maintaining of his blood pressure. At the time of evaluation, the patient was on the vent, sedated and unable to provide any history. Most information was obtained from review of the chart and talking to the RN. EXAMINATION: Blood pressure 95/76 with a pulse of 59, temperature 98. He was 98% on 50% FiO2.General description is an elderly male lying in bed in no distress. Respiratory system: Unlabored breathing with decreased breath sounds at bases. HEART: S1, S2. Regular rate and rhythm. Abdomen soft. No tenderness. LABS: BUN of 77, creatinine 1.37, and INR 2.5. DIAGNOSTIC IMPRESSION AND PLAN: Patient with bilateral lower extremity venous stasis ulcer with secondary cellulitis with Pseudomonas aeruginosa, urinary tract infection. He has been on Fortaz. However in view of the overall poor prognosis, hospice may be a better option. Currently being discussed by the primary team with the family. Continue supportive care. MMODL / IJN: [id number] / MTDD
--- NOTE | 2017-05-11 12:48 | P.DS ---
Providers Date of admission: 05/02/17 13:17 Attending physician: Bishnu Irvin Consults: 05/02/17 13:19 Consult Physician Urgent Consulting Provider: German Matias Consult Reason/Comments: leg wounds, eval for possible pneumonia Do you want consulting provider notified?: Yes Consult Physician Urgent Consulting Provider: Willian Jimenez Consult Reason/Comments: chf, hypoxia Do you want consulting provider notified?: Yes 05/09/17 10:15 Consult Physician Urgent Consulting Provider: Steve Au Consult Reason/Comments: ICU management Do you want consulting provider notified?: Already Contacted 05/09/17 12:14 Consult Physician Urgent Consulting Provider: Garfield Burnett Consult Reason/Comments: unable to place catheter Do you want consulting provider notified?: Yes Primary care physician: Sana Bartlett Hospital Course: Patient was made comfort cares shortly after making comfort care and an any cessation of hospice patient please refer to nursing documentation for further details preliminary cause of is heart failure Patient Condition at Discharge: Serious Plan - Discharge Summary Discharge Rx Participant: No New Discharge Prescriptions: No Action sitaGLIPtin [Januvia] 100 mg PO DAILY Polyethylene Glycol 3350 [Miralax] 17 gm PO DAILY PRN PRN Reason: Constipation Multivitamins, Thera [Multivitamin (formulary)] 1 tab PO DAILY Warfarin [Coumadin] 3 mg PO SUTUTHSA Ferrous Gluconate 324 mg PO BID Metoprolol Tartrate [Lopressor] 100 mg PO BID #120 tab Acetaminophen Tab [Tylenol] 650 mg PO Q6HR PRN tab PRN Reason: Fever And/ Or Pain Ipratropium-Albuterol Nebulize [Duoneb 0.5 mg-3 mg/3 ml Soln] 3 ml INHALATION RT-QID #120 ampul.neb Warfarin Sodium [Coumadin] 4.5 mg PO DAILY Docusate [Colace] 100 mg PO BID PRN PRN Reason: Constipation Furosemide [Lasix] 60 mg PO BID@0900,1600 #180 tab Cephalexin [Keflex] 500 mg PO TID #21 cap Discharge Medication List sitaGLIPtin [Januvia] 100 mg PO DAILY 09/15/15 [History] Multivitamins, Thera [Multivitamin (formulary)] 1 tab PO DAILY 02/09/17 [History ] Polyethylene Glycol 3350 [Miralax] 17 gm PO DAILY PRN 02/09/17 [History] Ferrous Gluconate 324 mg PO BID 03/16/17 [History] Warfarin [Coumadin] 3 mg PO SUTUTHSA 03/16/17 [History] Acetaminophen Tab [Tylenol] 650 mg PO Q6HR PRN tab 03/25/17 [Rx] Ipratropium-Albuterol Nebulize [Duoneb 0.5 mg-3 mg/3 ml Soln] 3 ml INHALATION RT -QID #120 ampul.neb 03/25/17 [Rx] Metoprolol Tartrate [Lopressor] 100 mg PO BID #120 tab 03/25/17 [Rx] Docusate [Colace] 100 mg PO BID PRN 04/24/17 [History] Warfarin Sodium [Coumadin] 4.5 mg PO DAILY 04/24/17 [History] Cephalexin [Keflex] 500 mg PO TID #21 cap 04/29/17 [Rx] Furosemide [Lasix] 60 mg PO BID@0900,1600 #180 tab 04/29/17 [Rx] Follow up Appointment(s)/Referral(s): [facility], [NON-STAFF] - Sana Bartlett MD [Primary Care Provider] - 1-2 days Discharge Disposition: - Preliminary Cause of Preliminary Cause of : Congestive heart failure
== END 2017-05-09 17:58 | disposition expired | DRG 291 ==
LOC: EC 10:48 → 6SEL 13:17 → 6ICU 05-09 09:43
PROVIDERS: ADMIT Hospitalist; ATTEND Hospitalist
PROC: 0BH18EZ Insertion of Endotracheal Airway into Trachea, Via Natural or Artificial Opening Endoscopic (ICD-10-PCS; principal; 2017-05-09)
PROC: 4A133B1 Monitoring of Arterial Pressure, Peripheral, Percutaneous Approach (ICD-10-PCS; principal; 2017-05-09)
PROC: 5A1945Z Respiratory Ventilation, 24-96 Consecutive Hours (ICD-10-PCS; principal; 2017-05-09)
PROC: 4A133J1 Monitoring of Arterial Pulse, Peripheral, Percutaneous Approach (ICD-10-PCS; principal; 2017-05-09)
PROC: 04HY32Z Insertion of Monitoring Device into Lower Artery, Percutaneous Approach (ICD-10-PCS; principal; 2017-05-09)
DX: I13.0 Hypertensive heart and chronic kidney disease with heart failure and stage 1 through stage 4 chronic kidney disease, or unspecified chronic kidney disease (principal); I50.43 Acute on chronic combined systolic (congestive) and diastolic (congestive) heart failure; J96.01 Acute respiratory failure with hypoxia; N17.9 Acute kidney failure, unspecified; A41.9 Sepsis, unspecified organism; E11.22 Type 2 diabetes mellitus with diabetic chronic kidney disease; E11.51 Type 2 diabetes mellitus with diabetic peripheral angiopathy without gangrene; I48.1 Persistent atrial fibrillation; E11.622 Type 2 diabetes mellitus with other skin ulcer; N18.3 Chronic kidney disease, stage 3 (moderate); L03.115 Cellulitis of right lower limb; L03.116 Cellulitis of left lower limb; N39.0 Urinary tract infection, site not specified; L97.829 Non-pressure chronic ulcer of other part of left lower leg with unspecified severity; L97.819 Non-pressure chronic ulcer of other part of right lower leg with unspecified severity; B96.5 Pseudomonas (aeruginosa) (mallei) (pseudomallei) as the cause of diseases classified elsewhere; D64.9 Anemia, unspecified; E78.5 Hyperlipidemia, unspecified; E87.5 Hyperkalemia; H91.90 Unspecified hearing loss, unspecified ear; I25.10 Atherosclerotic heart disease of native coronary artery without angina pectoris; I42.9 Cardiomyopathy, unspecified; I46.9 Cardiac arrest, cause unspecified; I48.2 Chronic atrial fibrillation; I83.019 Varicose veins of right lower extremity with ulcer of unspecified site; I83.029 Varicose veins of left lower extremity with ulcer of unspecified site; I87.8 Other specified disorders of veins; R79.1 Abnormal coagulation profile; Z51.5 Encounter for palliative care; J44.9 Chronic obstructive pulmonary disease, unspecified; I70.238 Atherosclerosis of native arteries of right leg with ulceration of other part of lower leg; I70.248 Atherosclerosis of native arteries of left leg with ulceration of other part of lower leg; Z96.1 Presence of intraocular lens; Z79.01 Long term (current) use of anticoagulants; Z79.84 Long term (current) use of oral hypoglycemic drugs; Z79.899 Other long term (current) drug therapy; Z83.3 Family history of diabetes mellitus; Z87.891 Personal history of nicotine dependence; Z91.19 Patient's noncompliance with other medical treatment and regimen; Z88.1 Allergy status to other antibiotic agents; Z88.8 Allergy status to other drugs, medicaments and biological substances
CPT/HCPCS: 36415; 71045; 71046; 74018; 80048; 80053; 82533; 82550; 82553; 82805; 83036; 83735; 83880; 84484; 85025; 85610; 85730; 87040; 87070; 87077; 87086; 87186; 87205; 93005; 94002; 94640; 94760; 94770; 96365; 96366; 96375; 96376; 99285